=== PATIENT | female | born 1945 | race Two or more races ===

== ENCOUNTER 2023-09-25 17:44 | Inpatient (IN) | payer BC, SELFPAY ==
[2023-09-25] VITALS (8 sets, daily range): BP systolic 131–182; BP diastolic 86–131; BMI 29.8
[2023-09-25 12:41] LABS: ALT (SGPT) 64 U/L (0-35); AST (SGOT) 59 U/L (14-36); Alkaline Phosphatase 181 U/L (38-126); Blood Urea Nitrogen 40 mg/dl (7-17); Calcium 8.6 mg/dl (8.4-10.2); Carbon Dioxide 31 mmol/L (22-30); Chloride 94 mmol/L (98-107); Glucose 131 mg/dl (70-99); Potassium 3.3 mmol/L (3.5-5.1); Sodium 132 mmol/L (135-145); Total Protein 6.7 g/dl (6.3-8.2); eGFR 33.01
--- NOTE | 2023-09-25 15:17 | ED.GENMED ---
History of Present Illness
General
Chief Complaint: Skin Problem
Source: patient and family
Exam Limitations: none
Time Seen by Provider: 09/25/23 13:12
Nursing documentation reviewed up to this point in time: agreed with
Travel History
Have you had any contact with someone who has COVID-19?: No
Do you have any symptoms of coronavirus? Fever > 100 degrees, chills, cough, shortness of breath, sore throat, loss of taste or smell, muscle aches, or headache?: No
History of Present Illness
History of Present Illness:
77-year-old female with Werner history of Guillain-Guillen�, memory loss, CHF presenting to the emergency department today with concerns of swelling discomfort mainly to the left foot has had bilateral leg swelling but over the past few days noticed
increased redness swelling and blistering to the left foot. Denies specific fevers systemic symptoms nausea vomiting.
Past History
Past History
ED Past Medical History: CHF, Renal failure, Hypothyroidism and Other (Guillain-Guillen�)
ED Past Surgical History:
Social History
Tobacco: Non-smoker
Living: with family
Employment: Retired
Review of Systems
Review of Systems
Allergies reviewed?: Yes
All Other Systems: ROS reviewed and negative except as documented in HPI and ROS
Phy Exam
Physical Exam
Physical Exam:
GENERAL: Alert , in no apparent distress
EYE: pupils equal and reactive
NECK: Supple, no significant adenopathy.
ENT: o/p clr, mmm.
CARDIAC: Regular rate and rhythm .
LUNGS: Clear breath sounds bilaterally, no acute respiratory distress, no wheezes/rales/rhonchi
ABDOMEN: Soft, without focal tenderness, no r/g, no cvat
NEUROLOGICAL: Alert and oriented, no focal neuro deficits
SKIN: Skin breakdown break in skin to the top of the left foot with surrounding redness and swelling tenderness palpation +1 pitting edema to the lower extremities bilaterally distal to the knees warm and dry, skin intact.
MUSCULOSKELETAL: No edema, well perfused.
PSYCH: Normal and appropriate interaction.
Course
Orders/Labs/Results
Orders:
Orders
09/25/23 12:20
Comprehensive Metabolic Panel Urgent
09/25/23 13:55
CR Foot - Left Min 3 Views Urgent
Comment:
Reason For Exam: left foot swelling pain
Venous Doppler Lwr Ext Left [US Periph Venous LOWER Ext LT] Urgent
Comment:
Reason For Exam: left ;eg swelling
09/25/23 15:48
BNP [NT-proBNP] Urgent
Complete Blood Count/With Diff Urgent
Lactic Acid Urgent
09/25/23 15:52
CeFAZolin 2 GRAM [Ancef] 2 grams in 10 ml IV NOW
09/25/23 16:21
Furosemide [Lasix] 40 mg IV NOW STA
09/25/23 16:50
CR Chest - 2 Views Urgent
Comment:
Reason For Exam: lower ext edema; rales on lung exam
09/25/23 16:51
Admit/Transfer Patient As Directed
Co-Sign Provider:
Level of Care: Inpatient admission
Assign to:: Telemetry
Physician / Group: Cruz
Diagnosis: CHF, Left Foot Wound
Reason for Telemetry: Acute Heart Failure
Date to Stop Telemetry: 09/28/23
Time to Stop Telemetry: 11:00
Reason for Hospitalization: IV diuretics
Expected length of stay greater than two midnights?: Yes
ELOS- Estimated Length of Stay in days: 3
I certify the patient meets the requirements for IP care: Yes
09/25/23 16:58
Code Status As Directed
Resuscitation Status: Full Code
09/25/23 17:08
ECG [Electrocardiogram (*1)] Stat
Reason for Study: Tachycardia
Oxycodone [Roxicodone] 5 mg PO NOW STA
09/25/23 17:18
Potassium Chloride [KCl] 40 meq PO NOW STA
09/25/23 20:46
Acetaminophen [Tylenol] 650 mg PO Q4HPRN PRN
Cephalexin Monohydrate [Keflex] 500 mg PO BID
09/25/23 20:46
CARDIOLOGY CONSULT Routine
Consulting Provider: Laurie Mascorro
Was physician already notified: Yes
HF DIETARY CONSULT Routine
HF EDUCATOR CONSULT Routine
Comment:
WOUND/OSTOMY CONSULT Routine
Reason for Consult: left foot wound
Activity As Directed
Activity Level: Out of Bed-Early Mobility
Intake/ Output As Directed
Frequency: Per unit guidelines
Patient Education As Directed
Type: CHF folder
Comment: give on admission. Document in Interdisciplinary Education record
Sleep Apnea Assessment by RN As Directed
Comment:
Physician Instructions:
Vital Signs As Directed
Frequency: Other
Additional Instructions:: Q12 or per unit guidelines if more frequent.
Weight As Directed
Frequency: Daily
Type of Scale: Standing Scale
Comment: Daily morning weight. If unable to stand, use balanced bed scale.
Weight As Directed
Frequency: Once
Type of Scale: Standing Scale
Comment: Upon Admission. If unable to stand, use balanced bed scale.
Pulse Ox/cont/shift [RESP] Routine
Quantity: 1
Special Instructions: Daily pulse oximetry at rest. If greater than 92% at rest also obtain pulse oximetry
while ambulating as tolerated.
Ot Eval And Treat Routine
Pt Eval And Treat Routine
Activity Level: Out of Bed-Early Mobility
DX Deep Vein Thrombosis Video Routine
09/25/23 22:00
Melatonin 5 mg PO HS
Quetiapine Fumarate [Seroquel] 50 mg PO HS
09/26/23 00:00
Heparin 5,000 units SC Q8
09/26/23 05:34
Basic Metabolic Panel IN AM
Cardiovascular Evaluation IN AM
Complete Blood Count/No Diff IN AM
ESR [Erythrocyte Sed Rate] IN AM
09/26/23 Breakfast
Sodium, 2 Gram
At Your Request: Limited, Professor Computer Science Required
Fluid Restriction: 1440 mL/day (48 oz)
09/26/23 07:00
Levothyroxine [Synthroid] 100 mcg PO DAILY AT 0700
09/26/23 08:00
Furosemide [Lasix] 40 mg IV DAILY
Prednisone [Deltasone] 7.5 mg PO DAILY
09/26/23 12:20
CRP [C-Reactive Protein] IN AM
Complement C3 IN AM
Complement C4 IN AM
TSH Reflex To Free T4 IN AM
09/27/23 06:00
Basic Metabolic Panel IN AM
09/28/23 06:00
Basic Metabolic Panel IN AM
09/28/23 11:00
DC Protocol for Telemetry ONCE
Abnormal Lab Results
09/25/23 09/25/23
12:20 15:48
Hgb 16.9 H g/dL
(12.0-16.0)
Hct 50.2 H %
(37.0-47.0)
MCH 31.7 H pg
(27.0-31.0)
Plt Count 94 L 10^3/uL
(130-400)
MPV 10.8 H fL
(7.4-10.4)
Absolute Lymphs (auto) 0.4 L 10^3/uL
(1.2-3.4)
Neutrophils % 87.9 H %
(42.2-75.2)
Lymphocytes % 7.2 L %
(20.5-51.1)
Sodium 132 L mmol/L
(135-145)
Potassium 3.3 L mmol/L
(3.5-5.1)
Chloride 94 L mmol/L
(98-107)
Carbon Dioxide 31 H mmol/L
(22-30)
BUN 40 H mg/dl
(7-17)
Creatinine 1.6 H mg/dL
(0.6-1.0)
Glucose 131 H mg/dl
(70-99)
Lactic Acid 2.2 H mmol/L
(0.7-2.0)
AST 59 H U/L
(14-36)
ALT 64 H U/L
(0-35)
Alkaline Phosphatase 181 H U/L
(38-126)
C-Reactive Protein 28.30 H mg/L
(0.0-10.00)
TSH (Reflex) 7.80 H uIU/ml
(0.47-4.68)
09/25/23 15:48
09/25/23 12:20
Vital Signs
Initial and Last Documented VS:
Initial Vital Signs
Temp Pulse Resp BP Pulse Ox
97.8 F 59 16 146/101 95
09/25/23 12:11 09/25/23 12:11 09/25/23 12:11 09/25/23 12:11 09/25/23 12:11
Last Documented Vital Signs
Temp Pulse Resp BP Pulse Ox
98.9 F 115 16 165/105 94
09/26/23 07:24 09/26/23 08:42 09/26/23 07:24 09/26/23 08:42 09/26/23 07:24
MDM/Problems Addressed
MDM/Problems Addressed:
77-year-old female presenting to the emergency department today with concerns of a left-sided foot wound over the past few days also has had ongoing swelling to the bilateral lower extremities over the past few months. Has not been taking her
Lasix. Denies specific fevers nausea vomiting. According family she is also had increased shortness of breath. Likely in some degree of heart failure was given dose of Lasix lactic acid elevated to 2.2 with concerns of infection to the left lower
extremity with red discoloration and pain to the left foot was started on IV antibiotics will be admitted for further treatment and monitoring.
*Critical Care Note
Total Time (30-74mins, 75-104mins- exclusive of procedures): Not Applicable
ED Attending Note
-
Portions of this chart may have been created with voice recognition software.� Occasional wrong word or��sound alike� substitutions may have occurred due to the inherent limitations of voice recognition software.
Discharge Plan
Departure
Patient Disposition: Admit
Date of Disposition: 09/25/23
Time of Disposition: 16:23
Admit to: Med/Surg
Admit to doctor: Ziyad
Presentation/result/management discussed w/ accepting MD/DO: Hospitalist
Patient with high blood pressure during this ER visit?: No
Condition: Good
Covid-19: Not Applicable
Discharge Problem:
CHF exacerbation, Cellulitis of foot
Interventions
Interventions:
*Risk Screen - Suicide Last Done: 09/25/23 14:04
*General Assessment Last Done: 09/25/23 14:04
*Neglect/Abuse Screening Last Done: 09/25/23 14:05
ED- Fall Risk Assessment Last Done: 09/25/23 16:58
*ED COVID-19 Vaccine History Last Done: 09/25/23 12:11
*Nursing Disposition Last Done: 09/25/23 20:55
ED-Skin Assessment Last Done: 09/25/23 14:05
Discharge Date and Time
Discharge Date/Time: 09/25/23 20:56
[2023-09-25 16:04] LABS: % Basophils 0.3 % (0-2); % Eosinophils 0.8 % (0-6); % Immature Granulocytes 0.5 % (0-0.5); % Lymphocytes 7.2 % (20.5-51.1); % Monocytes 3.3 % (1.7-9.3); % Neutrophils 87.9 % (42.2-75.2); Absolute Eosinophils 0.1 10^3/uL (0-0.7); Absolute Lymphocytes 0.4 10^3/uL (1.2-3.4); Absolute Monocytes 0.2 10^3/uL (0.1-0.6); Absolute Neutrophils 5.3 10^3/uL (1.4-6.5); Hematocrit 50.2 % (37.0-47.0); Hemoglobin 16.9 g/dL (12.0-16.0); Mean Corp Hgb Conc. 33.7 g/dL (33.0-37.0); Mean Corpuscular Hgb 31.7 pg (27.0-31.0); Mean Corpuscular Volume 94.2 fL (81.0-99.0); Nucleated Red Blood Cells % 0 %; Red Blood Cell Count 5.33 10^6/uL (4.20-5.40)
[2023-09-25 16:07] LABS: Lactic Acid 2.2 mmol/L (0.7-2.0)
[2023-09-25 16:19] LABS: NT-proBNP 16100 pg/ml
[2023-09-25] MEDS: LASIX 40 MG IV (16:30)
[2023-09-25] MEDS: ANCEF 10 IV (16:30)
[2023-09-25 16:50] LABS: Mean Platelet Volume 10.8 fL (7.4-10.4); Platelet Count 94 10^3/uL (130-400)
--- NOTE | 2023-09-25 17:10 | HPS.HSE ---
Addendum entered and electronically signed by Behzad Cruz MD 09/25/23 17:36:
I saw and examined the patient.
The SR. MANAGER MARKETING or PA's note was reviewed and I agree with the note.
Comment:
Patient 77 years old female history of ANCA positive vasculitis, dementia, hypothyroidism, CKD, hypothyroidism, presented to the hospital with increased lower extremity edema and left foot ulcer associated with erythema and tenderness. Patient had
a blister in her left foot which popped a few days ago and has increased erythema and pain since. Patient also has been having increased lower extremity edema. Denies chest pain. She does not relate shortness of breath but she appears to have
conversational dyspnea[place] [address]. Chest x-ray not done yet. He was referred to hospitalist for further evaluation.
Physical exam:
General: Acutely ill
HEENT: Normocephalic, Atraumatic and Moist Mucous Membranes
Respiratory: Bilateral coarse crackles; Negative Wheezes or Rhonchi
Cardiac: Regular Rhythm and S1/S2
GI: Soft, Nontender and Nondistended
Musculoskeletal: Bilateral edema, erythema and tenderness at left foot dorsal aspect.
Neuro: Awake, Alert and Disoriented
Psych: Calm
A/P:
Acute on chronic diastolic congestive heart failure, left lower extremity cellulitis, recent vasculitis--> continue IV diuretics, replete potassium, follow-up renal function and electrolytes, chest x-ray, obtain echocardiogram, continue antibiotics,
recheck inflammatory markers in a.m. (ESR, CRP, some complements), cardiology consult. Will give further recommendations based on clinical course.
Original Note:
Family Physician
-
Family Physician: Girma Fletcher
Chief Complaint
-
Lower ext swelling
History of Present Illness
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 Patient is unable to provide any additional history due to language
barrier therefore, history was taken with patient's son at the bedside. Patient has some chronic lower extremity which is got progressively worse over the last week. She developed a blister on her left foot which popped 3 days ago. Patient
complaining planing of increased pain in the left foot prompted him to bring her to the emergency department for evaluation. Son has not noted patient to appear more short of breath, and there have been no complaints of increased shortness of
breath.
Medical History
Past Medical History
Past Medical History: Reports Other
Additional Past Medical History:
CKD Stage III
ANCA positive vasculitis
Hypothyroidism
Dementia
Insomnia
Past Surgical History: Reports None
Social History
Tobacco: Non-smoker
Alcohol: None
Living: With Family
Family History
Family History: Not pertinent
Allergies / Home Medications
Allergies reflects when Allergies were last updated in [facility].
Home Medications with original date entered in [facility]
Allergy/Medication List:
Allergies
Allergy/AdvReac Type Severity Reaction Status Date / Time
No Known Allergies Allergy Verified 09/25/23 12:13
Home Medications
acetaminophen 650 mg tablet,extended release 1,300 mg PO [id number] PRN mild pain 09/25/23
levothyroxine 100 mcg tablet 100 mcg PO DAILY AT 0700 09/25/23
melatonin 5 mg tablet 5 mg PO HS 09/25/23
prednisone 5 mg tablet 7.5 mg PO DAILY 09/25/23
quetiapine 50 mg tablet (Seroquel) 50 mg PO HS 09/25/23
Review of Systems
-
Unable to obtain full review of systems at this time due to: Language Barrier
Physical Exam
Vital Signs
Vital Signs
Temp Pulse Resp BP Pulse Ox
97.8 F 116 16 154/131 92
09/25/23 12:11 09/25/23 16:30 09/25/23 12:11 09/25/23 16:31 09/25/23 16:31
Physical Exam
General: Comfortable and Conversant
HEENT: Anicteric and Moist mucous membranes
Respiratory: Rales (Bilaterally) and Non Labored Respirations
Cardiac: S1/S2, Regular Rhythm and Tachycardia
GI: Soft and Non Tender
Rectal: Deferred by Provider
Musculoskeletal: No Clubbing, No Cyanosis and Other (+4 pitting edema bilateral lower extremities)
Skin: Warm, Dry and Other (Mild erythema left foot; Blister site wrapped in Faiza)
Neuro: Awake, Alert and Nonfocal/grossly intact
Laboratory Results
-
09/25/23 15:48
09/25/23 12:20
Laboratory Results
Lactic Acid 2.2 mmol/L (0.7-2.0) H 09/25/23 15:48
Total Bilirubin 1.0 mg/dl (0.2-1.3) 09/25/23 12:20
AST 59 U/L (14-36) H 09/25/23 12:20
ALT 64 U/L (0-35) H 09/25/23 12:20
Alkaline Phosphatase 181 U/L (38-126) H 09/25/23 12:20
Data Reviewed
-
Lab Data: Labs Reviewed by me
Impression/Plan
-
Acute Heart Failure, likely preserved EF
-Consult Cardiology
-Check Echo
-Check CXR
-Check ECG
-Continue Lasix
-Monitor Is&Os and Daily Weights
Left Foot Cellulitis
-Continue Keflex
-Consult Wound Care
CKD Stage III
-Monitor creatinine closely while on diuretics
ANCA Positive Vasculitis
-Continue prednisone
Dementia, unknown
Insomnia
-Continue melatonin and Seroquel
Hypothyroidism
-Continue levothyroxine
DVT proph: SC Heparin
Code Status: Full Code
[2023-09-25] MEDS: ROXICODONE 5 MG PO (17:51)
[2023-09-25] MEDS: KCL 40 MEQ PO (17:53)
--- NOTE | 2023-09-25 19:23 | PTCARENOTE ---
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
[2023-09-25] MEDS: KEFLEX 500 MG PO (21:23)
[2023-09-25] MEDS: MELATONIN 5 MG PO (21:25)
[2023-09-25] MEDS: SEROQUEL 50 MG PO (21:27)
[2023-09-26] VITALS (8 sets, daily range): BP systolic 101–153; BP diastolic 64–103; PULSE 115; O2SAT 93; BMI 29.9
[2023-09-26] MEDS: HEPARIN 5000 UNITS SC ×4 (00:07→23:00)
[2023-09-26] MEDS: ROXICODONE 5 MG PO (01:18)
[2023-09-26 06:09] LABS: Hematocrit 47.1 % (37.0-47.0); Hemoglobin 16.2 g/dL (12.0-16.0); Mean Corp Hgb Conc. 34.4 g/dL (33.0-37.0); Mean Corpuscular Hgb 31.6 pg (27.0-31.0); Mean Platelet Volume 12.1 fL (7.4-10.4); Platelet Count 77 10^3/uL (130-400); Red Blood Cell Count 5.12 10^6/uL (4.20-5.40); Red Cell Dist. Width 13.8 % (11.5-14.5); White Blood Cell Count 4.8 10^3/uL (4.8-10.8)
[2023-09-26] MEDS: SYNTHROID 100 MCG PO (06:13)
[2023-09-26 06:30] LABS: Blood Urea Nitrogen 40 mg/dl (7-17); Calcium 8.9 mg/dl (8.4-10.2); Carbon Dioxide 27 mmol/L (22-30); Chloride 99 mmol/L (98-107); Estimated Creatinine Clearance 26 ml/min; Glucose 110 mg/dl (70-99); HDL Cholesterol 106 mg/dl; LDL Cholesterol, Calculated 40 mg/dl; Potassium 3.6 mmol/L (3.5-5.1); Sodium 134 mmol/L (135-145); Total Cholesterol 173 mg/dl (50-199); Triglyceride 136 mg/dl (10-149); Very Low Density Lipoprotein 27 mg/dl (0-30); eGFR 33.01
[2023-09-26 07:15] LABS: Erythrocyte Sed Rate 8 mm/hour (0-20)
--- NOTE | 2023-09-26 08:12 | W.PN.HOSP.TC ---
Today's Communication/Plan
-
Continue IV Lasix. Echocardiogram.
Assessment / Plan
Assessment / Plan
Physical exam:
General: Acutely ill
HEENT: Normocephalic, Atraumatic and Moist Mucous Membranes
Respiratory: Bilateral coarse crackles; Negative Wheezes or Rhonchi
Cardiac: Regular Rhythm and S1/S2, systolic murmur
GI: Soft, Nontender and Nondistended
Musculoskeletal: Bilateral edema, erythema and tenderness at left foot dorsal aspect.
Neuro: Awake, Alert and Disoriented, cognitive deficits.
Psych: Calm
A/P:
Acute systolic congestive heart Failure:
IV diuretics, Lasix 40 mg IV daily
Monitor strict I/O
Monitor daily weight
Monitor renal function and electrolytes
Reviewed latest echocardiogram on our system
Continue guideline-directed medical therapy for heart failure (GDMT)
Follow up clinical response
Given abnormalities of echocardiogram might require further cardiac workup--> cardiology consult pending
discussed with son over the phone
Updated echocardiogram:
Normal left ventricular chamber size. Mild concentric left ventricular
�hypertrophy. Severely reduced left ventricular systolic function.� Global
�hypokinesis. LV ejection fraction is 20-25% by Lorenzo's method of discs. Stage
�I diastolic dysfunction suggestive of abnormal relaxation.
�Mildly enlarged right ventricular size. Reduced right ventricular systolic
�function.
�Moderate to severe mitral regurgitation.
�Severe tricuspid regurgitation. Estimated pulmonary artery pressure of 60 mmHg.
�Assuming a right atrial pressure of 8 mmHg.
�
�Compared to prior study dated 10/18/22 which was directly reviewed, significant
�changes have occurred:
�-Left ventricular function previously normal, now severely decrease
�-Right ventricular previously normal, now mildly dilated with decreased
�function
�-Mitral regurgitation previously trace, now moderate to severe
�-Tricuspid regurgitation previously mild, now severe
�-Estimated pulmonary artery pressure previously 35mmHg, now 60 mmHg
Left Foot Cellulitis
-Continue Keflex, oral
-Consult Wound Care--> appreciated input and continue local care
CKD Stage III
-Monitor creatinine closely while on diuretics
-Creatinine 1.6 today which is the same as yesterday
ANCA Positive Vasculitis
-Continue prednisone
-Repeated ESR, CRP C3 and C4--> no evidence of flare of vasculitis at the moment given ESR normal, CRP only minimally elevated, and C3-C4 pending.
Dementia, probably Alzheimer's
Insomnia
-Continue melatonin and Seroquel
Hypothyroidism
-Continue levothyroxine
DVT proph: SC Heparin
Code Status: Full Code
Total time spent on today's encounter was 52 minutes which included time spent in counseling the patient/family regarding diagnosis and treatment plan as listed above, goals of care, and symptom management. Case was discussed with nursing staff,
specialists, and care coordinators/case management. All labs and imaging personally reviewed by me. Remainder the time spent in detailed review of previous records, lab data, imaging, and other medical provider documentation.
Anticipated Discharge: > 48 hours
Subjective/Interval History
-
Date of Service: September 26, 2023
Objective Data
-
Labs:
Laboratory Results
09/26/23
05:34
WBC 4.8
Hgb 16.2 H
Hct 47.1 H
Plt Count 77 L
Sodium 134 L
Potassium 3.6
Chloride 99
Carbon Dioxide 27
BUN 40 H
Creatinine 1.6 H
Glucose 110 H
Calcium 8.9
Vital Signs:
Vital Signs
Temp Pulse Resp BP Pulse Ox
98.9 F 115 16 147/101 94
09/26/23 07:24 09/26/23 07:24 09/26/23 07:24 09/26/23 03:52 09/26/23 07:24
[2023-09-26] MEDS: KEFLEX 500 MG PO ×2 (08:39→20:29)
[2023-09-26] MEDS: DELTASONE 7.5 MG PO (08:39)
[2023-09-26] MEDS: LASIX 40 MG IV (08:42)
[2023-09-26 09:02] LABS: Free T4 1.47 ng/dl (0.78-2.19)
[2023-09-26 09:41] LABS: Complement C3 98 mg/dl (88-165)
--- NOTE | 2023-09-26 11:12 | WOUNDNOTE ---
4TH TOE DORSAL
--- NOTE | 2023-09-26 11:14 | WOUNDNOTE ---
R MEDIAL FOOT CALLUS
--- NOTE | 2023-09-26 11:15 | WOUNDNOTE ---
WON RN note: Patient admitted with CHF exacerbation, cellulitis of L foot.
See H&P for complete history.
PMH: memory loss, [place], neuropathy in feet, CHF,LBP, anxiety and ambulatory dysfunction.
Wound Location and type/assessment: Patient admitted with: Cellulitis and L large dorsal foot blister. R 4th toe with moist scab on dorsal aspect, suspect from shoes vs trauma, both wounds due to neuropathy/edema. Has a raised Callus on R medial
foot. + palpable pedal pulses both feet. Dr. Cruz assessed wounds and assisted with lifting legs, patient unable to do on own. Patient can turn self without difficulty. Sacrum and heels are intact.
Appetite: Fair.
Pressure redistribution devices in place: On [employer]umax. Nurse Barbara reports patient can ambulate on own.
Plan: Local wound care done to L foot with adaptic, abd pad and pilar, lino wrap knee high. R 4th toe applied silicone foam. Dr. Cruz approved of the above. Asked nursing information systems coordinator assisting to obtain pillow to use btw legs when turned.
Updated nurse, care plan and will follow as needed.
Note to case management of equipment requested for discharge: VN for wound care.
Recommend follow up at wound care center upon discharge.
--- NOTE | 2023-09-26 13:32 | CON.CAR ---
Addendum entered and electronically signed by Wagner Calderon MD 09/26/23 16:36:
I saw and examined the patient.
The University Tutor's note was reviewed and I agree with the note.
Comment: 77-year-old woman past medical history of newly diagnosed ANCA vasculitis who presents in decompensated heart failure
Transthoracic echocardiogram here showed severely reduced left ventricular systolic function which is a new finding
Plan for IV diuresis, monitor daily weights and renal function
Will add low-dose beta-oneal and ARB given new cardiomyopathy and asked case management to carter Entresto
Would consider eventual ischemic evaluation depending on patient and family's goals of care
Original Note:
Consultation
Consultation Request
Date/Time Consultation Requested: 09/25/23 at 2046
Date/Time Consultation Performed: 09/26/23 at 1330
Requesting Provider: Dr. Cruz
Performing Provider: Dr. Calderon
Reason for Consultation: Acute HF
Medical History
-
History of Present Illness:
Patient came to [facility] yesterday with LE edema and left foot pain and wound, cardiology has been consulted for acute HF. Patient lives at home with her family and she was not taking Lasix according to her med rec. Patient is alone in the room now and
is awake and alert, but not answering questions. Patient had a series of admissions to from 10/17/22 until 12/01/22 where she was initially diagnosed and treated for acute HF, but developed REX with attempted diuresis. Then she was diagnosed with
demyelinating radiculopathy and received gammaglobulin, but no symptomatic improvement. She was finally diagnosed with ANCA vasculitis after she had mildly positive peroxidase antibodies. She was started on pulse dose steroids and began to
symptomatically improve for the first time both in weakness and confusion. She then started Rituxan in the hospital 11/27/22. She remains on prednisone 7.5 mg daily now. She has never been seen in the cardiology office, her visits have been no-show
or rescheduled. Last year when cardiology saw her throughout her admissions she had an echo that showed preserved EF, but echo today shows that EF is now reduced at 20-25% with moderate to severe MR, severe TR and mild to moderate AI. Will call
patient's son
PMH:
Recent series of admissions for acute HF, generalized weakness and eventually diagnosed with ANCA vasculitis 10/17/22 until 12/01/22
h/o ANCA vasculitis
CKD 3
Dementia
Hypothyroidism
h/o GBS and dysautonomia symptoms that resolved with ANCA vasculitis treatment
h/o diastolic dysfunction
Past Medical History
Past Medical History: Other (in HPI)
Past Surgical History: None
Social History
Tobacco: Non-Smoker
Alcohol: None
Drug: None
Personal:
Living: With Family
Family History
Family History: Reviewed & Not Pertinent (No FH of CAD)
Allergies / Home Medications
Allergy/AdvReac Type Severity Reaction Status Date / Time
No Known Allergies Allergy Verified 09/25/23 12:13
Medication Instructions Recorded Confirmed Type
acetaminophen 650 mg 1,300 mg PO [id number] PRN mild pain 09/25/23 09/25/23 History
tablet,extended release
levothyroxine 100 mcg tablet 100 mcg PO DAILY AT 0700 Thyroid 09/25/23 09/25/23 History
melatonin 5 mg tablet 5 mg PO HS Sleep 09/25/23 09/25/23 History
prednisone 5 mg tablet 7.5 mg PO DAILY vasculitis 09/25/23 09/25/23 History
quetiapine 50 mg tablet (Seroquel) 50 mg PO HS mental health 09/25/23 09/25/23 History
Review of Systems
-
History Source: Patient and Family
All other systems: Negative unless noted
Physical Exam
Vital Signs
Temp Pulse Resp BP Pulse Ox
98 F 111 18 140/89 96
09/26/23 13:01 09/26/23 13:01 09/26/23 13:01 09/26/23 13:01 09/26/23 13:01
GEN: NAD. Awake and alert
HEENT: EOMI, MMM
LUNGS: Clear anterolaterally with poor inspiratory effort
CV: Reg, S1/S2, 2/6 syst LSB
ABD: soft, BS+, NT, ND
EXT: +1 B/L LE edema. LLE GAURANG wrap in place. No clubbing, cyanosis or lesions B/L
NEURO: Gross non-focal
SKIN: Warm, dry and pink. No rash
Lab Results
09/26/23 05:34
09/26/23 05:34
Eip-Y-Exvnkwboloa Pept 79030 pg/ml 09/25/23 15:48
Impression / Plan
-
PCP: Dr. Yordy Ibarra
Cardiology: None prior to admission
Impression:
Acute HFrEF
LLE cellulitis
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
Moderate to severe MR by echo 09/26/23
Severe TR by echo 09/26/23
Recent series of admissions for acute HF, generalized weakness and eventually diagnosed with ANCA vasculitis 10/17/22 until 12/01/22
h/o ANCA vasculitis
CKD 3
Dementia
Hypothyroidism
h/o GBS and dysautonomia symptoms that resolved with ANCA vasculitis treatment
h/o diastolic dysfunction
Echo 10/18/22:�EF 60-65%, mild to mod aortic regurgitation, mild TR
Echo 09/26/23: preliminary report, EF 20-25%, moderate to severe MR, severe TR, mild to moderate aortic insufficiency
Plan:
-Patient came to [facility] yesterday with LE edema and left foot pain and wound, cardiology has been consulted for acute HF. Patient lives at home with her family and she was not taking Lasix according to her med rec. Patient is alone in the room now and
is awake and alert, but not answering questions. Patient had a series of admissions to from 10/17/22 until 12/01/22 where she was initially diagnosed and treated for acute HF, but developed REX with attempted diuresis. Then she was diagnosed with
demyelinating radiculopathy and received gammaglobulin, but no symptomatic improvement. She was finally diagnosed with ANCA vasculitis after she had mildly positive peroxidase antibodies. She was started on pulse dose steroids and began to
symptomatically improve for the first time both in weakness and confusion. She then started Rituxan in the hospital 11/27/22. She remains on prednisone 7.5 mg daily now. She has never been seen in the cardiology office, her visits have been no-show
or rescheduled. Last year when cardiology saw her throughout her admissions she had an echo that showed preserved EF, but echo today shows that EF is now reduced at 20-25% with moderate to severe MR, severe TR and mild to moderate AI. Will call
patient's son
-ECG reviewed by me shows sinus tachycardia with PVCs and lateral ST changes.
-Agree with Lasix 40 mg IV daily diuresis. Patient was not taking a diuretic prior to admission.
-Follow Cre. Patient developed REX last admission, but this was prior to her ANCA diagnosis. 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
-No WMA on echo. No ECG changes. Patient is not a candidate for cath given dementia.
-Update 1546: Talked with patient's son, Flora, on the phone for 10:44 min. Reviewed the series of admissions from last year. 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
but the other eye was unaffected. Patient went to stay with her other son in [place] for the summer, fall and winter and only recently returned to living with the patient. While in [place] she was admitted for PNA, but that was months ago. Patient
now with increasing LE edema for weeks and then the left dorsal foot wound is really what prompted admission. Reviewed echo findings. No chest pain per son. Reviewed that reduced EF could be ischemic or nonischemic and due to previous infection,
autoimmune process or other. Reviewed the current plan for medical therapy. Will add Coreg 3.125 mg BID and losartan 25 mg daily. Pending insurance coverage could try to transition to Entresto.
--- NOTE | 2023-09-26 16:00 | CM ---
gloria pena, pt with limited Spanish.
Attempted outreach to son- busy signal and unable to leave message for IA
[2023-09-26] MEDS: COZAAR 25 MG PO (16:36)
[2023-09-26] MEDS: COREG 3.125 MG PO (20:29)
[2023-09-26] MEDS: TYLENOL 650 MG PO (20:37)
[2023-09-26 21:19] LABS: Glucose - Point of Care 116 mg/dl (70-99)
[2023-09-26] MEDS: SEROQUEL 50 MG PO (22:16)
[2023-09-26] MEDS: MELATONIN 5 MG PO (22:16)
[2023-09-27 03:54] VITALS: BP 130/91
[2023-09-27 06:00] VITALS: BMI 29.7
[2023-09-27] MEDS: SYNTHROID 100 MCG PO (06:14)
[2023-09-27 06:18] LABS: % Basophils 0.2 % (0-2); % Eosinophils 3.3 % (0-6); % Immature Granulocytes 0.5 % (0-0.5); % Lymphocytes 18.7 % (20.5-51.1); % Monocytes 4.7 % (1.7-9.3); % Neutrophils 72.6 % (42.2-75.2); Absolute Eosinophils 0.1 10^3/uL (0-0.7); Absolute Lymphocytes 0.8 10^3/uL (1.2-3.4); Absolute Monocytes 0.2 10^3/uL (0.1-0.6); Absolute Neutrophils 3.1 10^3/uL (1.4-6.5); Hematocrit 42.8 % (37.0-47.0); Hemoglobin 14.4 g/dL (12.0-16.0); Mean Corp Hgb Conc. 33.6 g/dL (33.0-37.0); Mean Corpuscular Hgb 31.5 pg (27.0-31.0); Mean Corpuscular Volume 93.7 fL (81.0-99.0); Mean Platelet Volume 10.2 fL (7.4-10.4); Nucleated Red Blood Cells % 0 %; Platelet Count 72 10^3/uL (130-400); Red Blood Cell Count 4.57 10^6/uL (4.20-5.40); Red Cell Dist. Width 13.7 % (11.5-14.5); White Blood Cell Count 4.3 10^3/uL (4.8-10.8)
[2023-09-27 06:39] LABS: Blood Urea Nitrogen 43 mg/dl (7-17); Calcium 8.8 mg/dl (8.4-10.2); Carbon Dioxide 34 mmol/L (22-30); Chloride 96 mmol/L (98-107); Estimated Creatinine Clearance 27 ml/min; Glucose 100 mg/dl (70-99); Potassium 3.4 mmol/L (3.5-5.1); Sodium 135 mmol/L (135-145); eGFR 35.67
[2023-09-27 07:00] VITALS: BP 153/110
[2023-09-27 07:57] VITALS: BMI 29.7
--- NOTE | 2023-09-27 08:03 | W.PN.HOSP.TC ---
Today's Communication/Plan
-
Continue IV Lasix.
Assessment / Plan
Assessment / Plan
Physical exam:
General: Acutely ill
HEENT: Normocephalic, Atraumatic and Moist Mucous Membranes
Respiratory: Bilateral coarse crackles; Negative Wheezes or Rhonchi
Cardiac: Regular Rhythm and S1/S2, systolic murmur
GI: Soft, Nontender and Nondistended
Musculoskeletal: Bilateral edema, erythema and tenderness at left foot dorsal aspect.
Neuro: Awake, Alert and Disoriented, cognitive deficits.
Psych: Calm
A/P:
Acute systolic congestive heart Failure:
IV diuretics, increased to Lasix IV 40 mg twice a day
Monitor strict I/O
Monitor daily weight
Monitor renal function and electrolytes
Reviewed latest echocardiogram on our system and shows EF 20 to 25% which is new from prior echocardiogram and moderate to severe MR.
Continue guideline-directed medical therapy for heart failure (GDMT)--> on Coreg 6.25 m twice a day, Cozaar, checking cost of Jardiance and Entresto.
Follow up clinical response
Given abnormalities of echocardiogram might require further cardiac workup--> cardiology consult appreciated and recommended outpatient ischemic workup.
discussed with son over the phone yesterday
Left Foot Cellulitis
-Continue Keflex, oral
-Consulted Wound Care--> appreciated input and continue local care
CKD Stage III
-Monitor creatinine closely while on diuretics
-Creatinine 1.5 today which is better than yesterday
ANCA Positive Vasculitis
-Continue prednisone
-Repeated ESR, CRP C3 and C4--> no evidence of flare of vasculitis at the moment given ESR normal, CRP only minimally elevated and less than previously, and C3-C4 normal.
Dementia, probably Alzheimer's
Insomnia
-Continue melatonin and Seroquel
Hypothyroidism
-Continue levothyroxine
DVT proph: SC Heparin
Code Status: Full Code
Total time spent on today's encounter was 52 minutes which included time spent in counseling the patient/family regarding diagnosis and treatment plan as listed above, goals of care, and symptom management. Case was discussed with nursing staff,
specialists, and care coordinators/case management. All labs and imaging personally reviewed by me. Remainder the time spent in detailed review of previous records, lab data, imaging, and other medical provider documentation.
Anticipated Discharge: > 48 hours
Subjective/Interval History
-
Date of Service: September 27, 2023
Not much information from patient, peripheral edema still significant although no conversational dyspnea. Afebrile
Objective Data
-
Labs:
Laboratory Results
09/27/23
05:39
WBC 4.3 L
Hgb 14.4
Hct 42.8
Plt Count 72 L
Sodium 135
Potassium 3.4 L
Chloride 96 L
Carbon Dioxide 34 H
BUN 43 H
Creatinine 1.5 H
Glucose 100 H
Calcium 8.8
Vital Signs:
Vital Signs
Temp Pulse Resp BP Pulse Ox
97.8 F 112 20 153/110 93
09/27/23 07:00 09/27/23 07:00 09/27/23 07:00 09/27/23 07:00 09/27/23 07:00
I&O
09/26/23 09/27/23 09/28/23
06:59 06:59 06:59
Intake Total 480 / 480
Balance 480 / 480
[2023-09-27] MEDS: KEFLEX 500 MG PO ×2 (08:52→20:23)
[2023-09-27] MEDS: COZAAR 25 MG PO (08:53)
[2023-09-27] MEDS: DELTASONE 7.5 MG PO (08:53)
[2023-09-27] MEDS: LASIX 40 MG IV ×2 (08:54→15:53)
[2023-09-27] MEDS: COREG 3.125 MG PO ×2 (08:54→11:39)
[2023-09-27] MEDS: HEPARIN 5000 UNITS SC ×2 (08:55→15:34)
--- NOTE | 2023-09-27 09:30 | W.PN.CARDCBS ---
Today's Communication / Plan
-
New cardiomyopathy of unclear etiology with new moderate to severe MR. LVEF 20 to 25%.
Increase Coreg to 6.25 mg twice daily and increase Lasix to 40 mg IV twice daily. Okay to continue Cozaar for now. Will check on cost of Jardiance and Entresto.
She has underlying dementia. Will treat medically to start and then consider ischemic evaluation as outpatient.
Continue to follow creatinine closely as she has had acute kidney injury in the past.
She also will continue the prednisone for her history of vasculitis. CRP is elevated but improved from 2022
Impression / Plan
-
PCP: Dr. Yordy Ibarra
Cardiology: None prior to admission
Impression:
Acute HFrEF
LLE cellulitis
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
Moderate to severe MR by echo 09/26/23
Severe TR by echo 09/26/23
Recent series of admissions for acute HF, generalized weakness and eventually diagnosed with ANCA vasculitis 10/17/22 until 12/01/22
h/o ANCA vasculitis
CKD 3
Dementia
Hypothyroidism
h/o GBS and dysautonomia symptoms that resolved with ANCA vasculitis treatment
h/o diastolic dysfunction
Echo 10/18/22:�EF 60-65%, mild to mod aortic regurgitation, mild TR
Echo 09/26/23: EF 20-25%, moderate to severe MR, severe TR, mild to moderate aortic insufficiency
Plan:
-Would continue medical therapy for new cardiomyopathy with new moderate to severe MR. Increase Coreg to 6.25 mg p.o. twice daily continue losartan. She remains volume overloaded will increase Lasix to 40 mg IV twice daily. Will need to continue
to follow creatinine.
-Would consider switching to Entresto and Jardiance. Will ask case management to look into cost.
-Follow Cre. Patient developed REX last admission, but this was prior to her ANCA diagnosis. 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
-No WMA on echo. No ECG changes. Patient is not a candidate for cath given dementia.
-Cont prednisone and Keflex
-Had series of admissions from last year. 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 Patient went to stay with her other son in [place]
for the summer, fall and winter and only recently returned to living with the patient. While in [place] she was admitted for PNA, but that was months ago. Patient now with increasing LE edema for weeks and then the left dorsal foot wound is really
what prompted admission. Reviewed echo findings. No chest pain per son. Reviewed that reduced EF could be ischemic or nonischemic and due to previous infection, autoimmune process or other. Reviewed the current plan for medical therapy. Will add
Coreg 3.125 mg BID and losartan 25 mg daily. Pending insurance coverage could try to transition to Entresto.
Progress Note - Visitor Services Assistant
Subjective
Date of Service: September 27, 2023
Still with some shortness of breath. Heart rates remain elevated in sinus rhythm.
Objective
Labs:
09/27/23 05:39
09/27/23 05:39
Labs
Hgb 14.4 g/dL (12.0-16.0) 09/27/23 05:39
Hct 42.8 % (37.0-47.0) 09/27/23 05:39
Plt Count 72 10^3/uL (130-400) L 09/27/23 05:39
Sodium 135 mmol/L (135-145) 09/27/23 05:39
Potassium 3.4 mmol/L (3.5-5.1) L 09/27/23 05:39
BUN 43 mg/dl (7-17) H 09/27/23 05:39
Creatinine 1.5 mg/dL (0.6-1.0) H 09/27/23 05:39
Glucose 100 mg/dl (70-99) H 09/27/23 05:39
Vital Signs and I&O:
Vital Signs
Temp Pulse Resp BP Pulse Ox
97.8 F 112 20 153/110 93
09/27/23 07:00 09/27/23 08:53 09/27/23 07:00 09/27/23 08:53 09/27/23 07:00
Vital Signs
Temp Pulse Resp BP Pulse Ox
97.8 F 112 20 153/110 93
09/27/23 07:00 09/27/23 08:53 09/27/23 07:00 09/27/23 08:53 09/27/23 07:00
Intake & Output
09/25/23 09/26/23 09/27/23 09/28/23
06:59 06:59 06:59 06:59
Intake Total 480 / 480
Balance 480 / 480
Physical Exam
Physical Exam
GEN: No distress, awake, Ox3
HEENT: supple, anicteric, mmm
LUNGS: dec BS at bases
CV: Reg, S1/S2, 1/6 syst LSB, S3+
ABD: soft, BS+, NT/ND
EXT: ++ edema
NEURO: Gross non-focal
SKIN: No rash
[2023-09-27 11:15] VITALS: BP 108/72
[2023-09-27] MEDS: KCL 40 MEQ PO (11:34)
[2023-09-27 15:00] VITALS: BP 128/94
[2023-09-27] MEDS: TYLENOL 650 MG PO (15:34)
--- NOTE | 2023-09-27 16:45 | CM ---
CM following re: d/c planning
Chart reviewed
CM spoke with the patient's son via phone; IA completed
Pt has dx dementia and unable to answer questions asked
Pt resides at her son's 2SH home with 2STE
Pt reports independence at baseline
Pt has home care hx with [facility], has no SNF hx, & has a r/w & w/c for use as needed
Pt has confirmed prescription coverage and rx's are filled at [facility] on [address] [place]
Pt PCP Girma Fletcher
Per PT ceci. post d/c recommendation is home PT vs SNF
CM will continue to communicate disposition needs & assist with d/c as indicated
PLAN; CM following for needs
[2023-09-27 19:00] VITALS: BP 128/88
[2023-09-27] MEDS: COREG 6.25 MG PO (20:23)
[2023-09-27] MEDS: SEROQUEL 50 MG PO (21:41)
[2023-09-27] MEDS: MELATONIN 5 MG PO (21:41)
[2023-09-27 23:00] VITALS: BP 108/72
[2023-09-28] VITALS (7 sets, daily range): BP systolic 124–148; BP diastolic 71–100; PULSE 87; O2SAT 94; BMI 29.6
[2023-09-28] MEDS: SYNTHROID 100 MCG PO (05:45)
[2023-09-28] MEDS: TYLENOL 650 MG PO ×3 (05:45→20:19)
[2023-09-28 06:46] LABS: Blood Urea Nitrogen 40 mg/dl (7-17); Calcium 8.9 mg/dl (8.4-10.2); Carbon Dioxide 32 mmol/L (22-30); Chloride 100 mmol/L (98-107); Estimated Creatinine Clearance 27 ml/min; Glucose 116 mg/dl (70-99); Potassium 4.2 mmol/L (3.5-5.1); Sodium 135 mmol/L (135-145); eGFR 35.67
--- NOTE | 2023-09-28 07:39 | W.PN.HOSP.TC ---
Today's Communication/Plan
-
Continue IV Lasix.
Assessment / Plan
Assessment / Plan
Physical exam:
General: Acutely ill
HEENT: Normocephalic, Atraumatic and Moist Mucous Membranes
Respiratory: Bilateral coarse crackles; Negative Wheezes or Rhonchi
Cardiac: Regular Rhythm and S1/S2, systolic murmur
GI: Soft, Nontender and Nondistended
Musculoskeletal: Bilateral edema, erythema and tenderness at left foot dorsal aspect.
Neuro: Awake, Alert and Disoriented, cognitive deficits.
Psych: Calm
A/P:
Acute systolic congestive heart Failure:
IV diuretics, increased to Lasix IV 40 mg twice a day
Monitor strict I/O
Monitor daily weight
Monitor renal function and electrolytes
Reviewed latest echocardiogram on our system and shows EF 20 to 25% which is new from prior echocardiogram and moderate to severe MR.
Continue guideline-directed medical therapy for heart failure (GDMT)--> on Coreg 6.25 m twice a day, Cozaar, checking cost of Jardiance and Entresto.
Follow up clinical response
Given abnormalities of echocardiogram might require further cardiac workup--> cardiology consult appreciated and recommended outpatient ischemic workup.
discussed with son over the phone again today on
Left Foot Cellulitis
-Continue Keflex, oral
-Consulted Wound Care--> appreciated input and continue local care
CKD Stage III
-Monitor creatinine closely while on diuretics
-Creatinine 1.5 today which is stable
ANCA Positive Vasculitis
-Continue prednisone
-Repeated ESR, CRP C3 and C4--> no evidence of flare of vasculitis at the moment given ESR normal, CRP only minimally elevated and less than previously, and C3-C4 normal.
Dementia, probably Alzheimer's
Insomnia
-Continue melatonin and Seroquel
Hypothyroidism
-Continue levothyroxine
DVT proph: SC Heparin
Code Status: Full Code
Anticipated Discharge: 24 - 48 hours
Subjective/Interval History
-
Date of Service: September 28, 2023
Less shortness of breath, still edematous. Patient with pain from neuropathy at times.
Objective Data
-
Labs:
Laboratory Results
09/28/23
05:44
Sodium 135
Potassium 4.2
Chloride 100
Carbon Dioxide 32 H
BUN 40 H
Creatinine 1.5 H
Glucose 116 H
Calcium 8.9
Vital Signs:
Vital Signs
Temp Pulse Resp BP Pulse Ox
97.5 F 102 20 148/100 92
09/28/23 07:29 09/28/23 07:29 09/28/23 07:29 09/28/23 07:29 09/28/23 07:29
I&O
09/27/23 09/28/23 09/29/23
06:59 06:59 06:59
Intake Total 480 / 480 1140 / 1140
Balance 480 / 480 1140 / 1140
[2023-09-28] MEDS: KEFLEX 500 MG PO ×2 (07:47→20:20)
[2023-09-28] MEDS: COZAAR 25 MG PO (07:47)
[2023-09-28] MEDS: DELTASONE 7.5 MG PO (07:47)
[2023-09-28] MEDS: HEPARIN 5000 UNITS SC ×3 (07:47→16:08)
[2023-09-28] MEDS: COREG 6.25 MG PO ×2 (07:47→20:20)
[2023-09-28] MEDS: LASIX 40 MG IV ×2 (07:48→16:07)
[2023-09-28] MEDS: MELATONIN 5 MG PO (21:39)
[2023-09-28] MEDS: SEROQUEL 50 MG PO (21:39)
--- NOTE | 2023-09-28 23:38 | W.PN.CARDCBS ---
Today's Communication / Plan
-
Continue diuresis
Optimize goal-directed medical therapy for new cardiomyopathy
Impression / Plan
-
PCP: Dr. Yordy Ibarra
Cardiology: None prior to admission
Impression:
Acute HFrEF
LLE cellulitis
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
Moderate to severe MR by echo 09/26/23
Severe TR by echo 09/26/23
Recent series of admissions for acute HF, generalized weakness and eventually diagnosed with ANCA vasculitis 10/17/22 until 12/01/22
h/o ANCA vasculitis
CKD 3
Dementia
Hypothyroidism
h/o GBS and dysautonomia symptoms that resolved with ANCA vasculitis treatment
h/o diastolic dysfunction
Echo 10/18/22:�EF 60-65%, mild to mod aortic regurgitation, mild TR
Echo 09/26/23: EF 20-25%, moderate to severe MR, severe TR, mild to moderate aortic insufficiency
Plan:
New cardiomyopathy, unknown etiology with a EF 5% by echocardiogram 09/26/2023 with moderate to severe mitral regurgitation and severe tricuspid regurgitation as well as mild to moderate aortic insufficiency
-Records received patient's portal from [place] from March 19, 2023 including an echocardiogram which noted LV systolic function to be normal estimated 65% with no regional wall motion abnormalities and grade 1 diastolic dysfunction. She had
elevated left atrial filling pressures. Right ventricle was mildly enlarged with mildly reduced RV systolic function. She had mild mitral and tricuspid regurgitation. Estimated right ventricular systolic pressures were severely elevated at 60
mmHg assuming a right atrial pressure of 15 mmHg.
-Also reviewed a patient portal discharge summary from her admission in [place] March 18 - April 08, 2023 for sepsis and acute respiratory failure requiring intubation.Patient presented with shortness of breath requiring intubation with CT of
the chest noting pneumonia and diffuse interstitial lung disease. 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 She was extubated
March 22 and then needed to be reintubated March 26. She was eventually reextubated March 28 and required 2 L nasal cannula at time of discharge. She was also treated for heart failure with preserved ejection fraction. She was discharged on 40
mg of Lasix every other day. She did have elevated troponins which they felt were the demand ischemia.
-Cardiomyopathy etiology unclear, ischemic? Possible rituximab induced.
-Discussed with family options for further evaluation of new cardiomyopathy including ischemic evaluation however they have historically been more conservative given her advanced cognitive impairment/dementia. They plan on having a family meeting
tonight.
-Continue Coreg to 6.25 mg p.o. twice daily; continue losartan.
-She remains volume overloaded; continue Lasix to 40 mg IV twice daily.
-Would consider switching to Entresto and Jardiance. Will ask case management to look into cost.
-Follow Cre. Patient developed REX last admission, but this was prior to her ANCA diagnosis. 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
Progress Note - Rehabilitation Director
Subjective
Date of Service: September 28, 2023
Seen and examined. Patient sitting at bed to chair with her and son at bedside. History unreliable due to dementia as well as language barriers. Discussed cardiac testing findings and options with son
Objective
Labs:
09/27/23 05:39
09/28/23 05:44
Labs
Hgb 14.4 g/dL (12.0-16.0) 09/27/23 05:39
Hct 42.8 % (37.0-47.0) 09/27/23 05:39
Plt Count 72 10^3/uL (130-400) L 09/27/23 05:39
Sodium 135 mmol/L (135-145) 09/28/23 05:44
Potassium 4.2 mmol/L (3.5-5.1) 09/28/23 05:44
BUN 40 mg/dl (7-17) H 09/28/23 05:44
Creatinine 1.5 mg/dL (0.6-1.0) H 09/28/23 05:44
Glucose 116 mg/dl (70-99) H 09/28/23 05:44
Vital Signs and I&O:
Vital Signs
Temp Pulse Resp BP Pulse Ox
97.6 F 110 20 136/87 93
09/28/23 19:34 09/28/23 20:20 09/28/23 19:34 09/28/23 20:20 09/28/23 19:34
Vital Signs
Temp Pulse Resp BP Pulse Ox
97.6 F 110 20 136/87 93
09/28/23 19:34 09/28/23 20:20 09/28/23 19:34 09/28/23 20:20 09/28/23 19:34
Intake & Output
09/26/23 09/27/23 09/28/23 09/29/23
06:59 06:59 06:59 06:59
Intake Total 480 / 480 1140 / 1140 120 / 120
Balance 480 / 480 1140 / 1140 120 / 120
Physical Exam
Physical Exam
GEN: Awake and alert. Sitting out of bed to chair
HEENT: mm
LUNGS: dec BS at bases
CV: Reg, S1/S2, 2/6 syst LSB
ABD: soft, BS+, NT/ND
EXT: ++ edema
[2023-09-29] MEDS: HEPARIN 5000 UNITS SC ×4 (00:19→23:00)
[2023-09-29 03:32] VITALS: BP 141/99
[2023-09-29 06:00] VITALS: BMI 29.0
[2023-09-29] MEDS: TYLENOL 650 MG PO ×3 (06:02→18:24)
[2023-09-29 06:43] LABS: Blood Urea Nitrogen 48 mg/dl (7-17); Calcium 9.1 mg/dl (8.4-10.2); Carbon Dioxide 35 mmol/L (22-30); Chloride 97 mmol/L (98-107); Estimated Creatinine Clearance 27 ml/min; Glucose 113 mg/dl (70-99); Potassium 3.6 mmol/L (3.5-5.1); Sodium 137 mmol/L (135-145); eGFR 35.67
--- NOTE | 2023-09-29 08:12 | W.PN.HOSP.TC ---
Addendum entered and electronically signed by Behzad Cruz MD 09/29/23 15:01:
Thrombocytopenia
Hyponatremia
Original Note:
Today's Communication/Plan
-
Continue IV Lasix.
Assessment / Plan
Assessment / Plan
Physical exam:
General: Acutely ill
HEENT: Normocephalic, Atraumatic and Moist Mucous Membranes
Respiratory: Bilateral coarse crackles; Negative Wheezes or Rhonchi
Cardiac: Regular Rhythm and S1/S2, systolic murmur
GI: Soft, Nontender and Nondistended
Musculoskeletal: Bilateral edema, erythema and tenderness at left foot dorsal aspect.
Neuro: Awake, Alert and Disoriented, cognitive deficits.
Psych: Calm
A/P:
Acute systolic congestive heart Failure:
Suspicion for etiology of heart failure related to use of Rituxan (not very common, but case reports reviewed related to cardiotoxicity).
IV diuretics, increased to Lasix IV 40 mg twice a day
Monitor strict I/O
Monitor daily weight
Monitor renal function and electrolytes
Reviewed latest echocardiogram on our system and shows EF 20 to 25% which is new from prior echocardiogram and moderate to severe MR.
Continue guideline-directed medical therapy for heart failure (GDMT)--> on Coreg 6.25 m twice a day, Cozaar, checking cost of Jardiance and Entresto.
Follow up clinical response
Given abnormalities of echocardiogram might require further cardiac workup--> cardiology consult appreciated and recommended outpatient ischemic workup.
discussed with son over the phone today. As far as I can tell on the note from cardiology recommended outpatient ischemic workup but some still remain the patient discussed about possible cardiac catheterization and discussed the case patient and
family agree with cardiac catheterization--> will defer to cardiology in that regard.
Left Foot Cellulitis
-Continue Keflex, oral
-Consulted Wound Care--> appreciated input and continue local care
CKD Stage III
-Monitor creatinine closely while on diuretics
-Creatinine 1.5 today which is stable
ANCA Positive Vasculitis
-Continue prednisone
-Repeated ESR, CRP C3 and C4--> no evidence of flare of vasculitis at the moment given ESR normal, CRP only minimally elevated and less than previously, and C3-C4 normal.
Dementia, probably Alzheimer's
Insomnia
-Continue melatonin and Seroquel
Hypothyroidism
-Continue levothyroxine
DVT proph: SC Heparin
Code Status: Full Code
Anticipated Discharge: > 48 hours
Subjective/Interval History
-
Date of Service: September 29, 2023
Patient denies shortness of breath. Less peripheral edema. No chest pain.
Objective Data
-
Labs:
Laboratory Results
09/29/23
05:52
Sodium 137
Potassium 3.6
Chloride 97 L
Carbon Dioxide 35 H
BUN 48 H
Creatinine 1.5 H
Glucose 113 H
Calcium 9.1
Vital Signs:
Vital Signs
Temp Pulse Resp BP Pulse Ox
97.5 F 107 20 141/99 92
09/29/23 05:44 09/29/23 03:32 09/29/23 03:32 09/29/23 03:32 09/29/23 03:32
I&O
09/28/23 09/29/23 09/30/23
06:59 06:59 06:59
Intake Total 1140 / 1140 120 / 120
Balance 1140 / 1140 120 / 120
[2023-09-29 08:32] VITALS: BP 108/61
[2023-09-29] MEDS: KEFLEX 500 MG PO ×2 (09:13→22:55)
[2023-09-29] MEDS: DELTASONE 7.5 MG PO (09:14)
[2023-09-29] MEDS: COREG 6.25 MG PO ×2 (09:15→22:54)
[2023-09-29] MEDS: COZAAR 25 MG PO (09:15)
[2023-09-29] MEDS: LASIX 40 MG IV ×2 (09:19→15:49)
[2023-09-29] MEDS: FLUSH (NSS) 1 FLUSH IV (09:23)
[2023-09-29 12:00] VITALS: BP 128/80
--- NOTE | 2023-09-29 14:16 | PN.CDI ---
CDI
- -
CDI:
Physician Documentation Request
Admit Date: 09/25/23 17:44
Dear Doctor Nancy,
Patient admitted with acute systolic congestive heart failure.
Na levels documented below:
Laboratory Tests
09/25/23 09/26/23
12:20 05:34
Sodium 132 L 134 L
Based on the above, could you clarify in the progress notes, the appropriate diagnosis, if significant, that supports the above abnormalities and additional evaluation, monitoring and/or treatment rendered:
Hyponatremia
Insignificant abnormal lab findings
Other
Use of terms such as suspected, likely, concern for, or probable (associated with a specific diagnosis that is being evaluated, monitored, or treated as if it exists) are acceptable and can be coded in the inpatient setting, when documented at the
time of discharge.
Thank you,
Lillian LEBRONN,RN,CCDS
CDI Specialist
Available via [place] text
Please use your independent medical judgment in providing your response.
--- NOTE | 2023-09-29 14:32 | PN.CDI ---
CDI
- -
CDI:
Physician Documentation Request
Admit Date: 09/25/23 17:44
Dear Doctor Nancy,
Patient admitted with acute systolic congestive heart failure.
Platelet counts documented below:
Laboratory Tests
09/25/23 09/26/23 09/27/23
15:48 05:34 05:39
Plt Count 94 L 77 L 72 L
Based on the above, could you clarify in the progress notes, the appropriate diagnosis, if significant, that supports the above abnormalities and additional evaluation, monitoring and/or treatment rendered:
Thrombocytopenia
Insignificant abnormal lab findings
Other
Use of terms such as suspected, likely, concern for, or probable (associated with a specific diagnosis that is being evaluated, monitored, or treated as if it exists) are acceptable and can be coded in the inpatient setting, when documented at the
time of discharge.
Thank you,
Lillian LOBO,RN,CCDS
CDI Specialist
Available via [place] text
Please use your independent medical judgment in providing your response.
[2023-09-29 15:01] VITALS: BP 140/82
--- NOTE | 2023-09-29 15:47 | W.PN.CARDCBS ---
Today's Communication / Plan
-
Reduce Lasix to 40mg daily
Optimize goal-directed medical therapy as able
Consider stress test Monday
Impression / Plan
-
PCP: Dr. Yordy Ibarra
Cardiology: None prior to admission
Impression:
Acute HFrEF
LLE cellulitis
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
Moderate to severe MR by echo 09/26/23
Severe TR by echo 09/26/23
Recent series of admissions for acute HF, generalized weakness and eventually diagnosed with ANCA vasculitis 10/17/22 until 12/01/22
h/o ANCA vasculitis
CKD 3
Dementia
Hypothyroidism
h/o GBS and dysautonomia symptoms that resolved with ANCA vasculitis treatment
h/o diastolic dysfunction
Echo 10/18/22:�EF 60-65%, mild to mod aortic regurgitation, mild TR
Echo 09/26/23: EF 20-25%, moderate to severe MR, severe TR, mild to moderate aortic insufficiency
Plan:
New cardiomyopathy, unknown etiology with a EF 5% by echocardiogram 09/26/2023 with moderate to severe mitral regurgitation and severe tricuspid regurgitation as well as mild to moderate aortic insufficiency
-Records received patient's portal from [place] from March 19, 2023 including an echocardiogram which noted LV systolic function to be normal estimated 65% with no regional wall motion abnormalities and grade 1 diastolic dysfunction. She had
elevated left atrial filling pressures. Right ventricle was mildly enlarged with mildly reduced RV systolic function. She had mild mitral and tricuspid regurgitation. Estimated right ventricular systolic pressures were severely elevated at 60
mmHg assuming a right atrial pressure of 15 mmHg.
-Also reviewed a patient portal discharge summary from her admission in [place] March 18 - April 08, 2023 for sepsis and acute respiratory failure requiring intubation.Patient presented with shortness of breath requiring intubation with CT of
the chest noting pneumonia and diffuse interstitial lung disease. 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 She was extubated
March 22 and then needed to be reintubated March 26. She was eventually reextubated March 28 and required 2 L nasal cannula at time of discharge. She was also treated for heart failure with preserved ejection fraction. She was discharged on 40
mg of Lasix every other day. She did have elevated troponins which they felt were the demand ischemia.
-Cardiomyopathy etiology unclear, ischemic? Possible rituximab induced [she had 2 doses]. Call placed to [facility] to discuss. Check cardiac troponin
-Discussed with family options for further evaluation of new cardiomyopathy including ischemic evaluation however they have historically been more conservative given her advanced cognitive impairment/dementia. Overall, given multiple comorbidities
and advanced dementia I do not believe without clear benefit, she is a poor candidate for invasive procedures/LHC. Can consider Lexiscna nuclear stress testing on Monday.
-Continue Coreg to 6.25 mg p.o. twice daily; continue losartan.
-Volume status appears improved. Reduce Lasix to 40 mg once daily
-Would consider switching to Entresto and Jardiance. Will ask case management to look into cost.
-Follow Cre. Patient developed REX last admission, but this was prior to her ANCA diagnosis. 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
Progress Note - Change Management Director
Subjective
Date of Service: September 29, 2023
Seen and examined. Patient out of bed to chair. Son at bedside. With the help of son translating, patient offers no specific complaints but history is unreliable.
Objective
Labs:
09/27/23 05:39
09/29/23 05:52
Labs
Hgb 14.4 g/dL (12.0-16.0) 09/27/23 05:39
Hct 42.8 % (37.0-47.0) 09/27/23 05:39
Plt Count 72 10^3/uL (130-400) L 09/27/23 05:39
Sodium 137 mmol/L (135-145) 09/29/23 05:52
Potassium 3.6 mmol/L (3.5-5.1) 09/29/23 05:52
BUN 48 mg/dl (7-17) H 09/29/23 05:52
Creatinine 1.5 mg/dL (0.6-1.0) H 09/29/23 05:52
Glucose 113 mg/dl (70-99) H 09/29/23 05:52
Vital Signs and I&O:
Vital Signs
Temp Pulse Resp BP Pulse Ox
95.8 F L 101 24 140/82 94
09/29/23 15:01 09/29/23 15:01 09/29/23 15:01 09/29/23 15:01 09/29/23 15:01
Vital Signs
Temp Pulse Resp BP Pulse Ox
95.8 F L 101 24 140/82 94
09/29/23 15:01 09/29/23 15:01 09/29/23 15:01 09/29/23 15:01 09/29/23 15:01
Intake & Output
09/27/23 09/28/23 09/29/23 09/30/23
06:59 06:59 06:59 06:59
Intake Total 480 / 480 1140 / 1140 120 / 120
Balance 480 / 480 1140 / 1140 120 / 120
Physical Exam
Physical Exam
GEN: Awake and alert. Sitting out of bed to chair
HEENT: mm
LUNGS: dec BS at bases
CV: Reg, S1/S2, 2/6 syst LSB
ABD: soft, BS+, NT/ND
EXT: +edema
[2023-09-29] MEDS: SYNTHROID PO (15:51)
[2023-09-29 19:40] VITALS: BP 154/91
[2023-09-29] MEDS: SEROQUEL 50 MG PO (22:53)
[2023-09-29] MEDS: MELATONIN 5 MG PO (22:53)
[2023-09-29 23:24] VITALS: BP 130/59
[2023-09-30 03:49] VITALS: BP 126/86
[2023-09-30] MEDS: SYNTHROID 100 MCG PO (05:14)
[2023-09-30 06:00] VITALS: BMI 28.9
[2023-09-30 07:40] VITALS: BP 143/94
[2023-09-30 08:14] LABS: Blood Urea Nitrogen 45 mg/dl (7-17); Carbon Dioxide 37 mmol/L (22-30); Chloride 93 mmol/L (98-107); Estimated Creatinine Clearance 31 ml/min; Glucose 111 mg/dl (70-99); Potassium 3.3 mmol/L (3.5-5.1); Sodium 138 mmol/L (135-145); eGFR 42.35
[2023-09-30] MEDS: DELTASONE 7.5 MG PO (08:28)
[2023-09-30] MEDS: KEFLEX 500 MG PO ×2 (08:28→22:05)
[2023-09-30] MEDS: COREG 6.25 MG PO (08:29)
[2023-09-30] MEDS: HEPARIN 5000 UNITS SC ×3 (08:29→23:26)
[2023-09-30] MEDS: COZAAR 25 MG PO (08:29)
[2023-09-30] MEDS: LASIX 40 MG IV (08:30)
--- NOTE | 2023-09-30 10:33 | W.PN.HOSP.TC ---
Addendum entered and electronically signed by Behzad Cruz MD 09/30/23 15:12:
Thrombocytopenia
Hyponatremia
Original Note:
Today's Communication/Plan
-
IV Lasix. Oral cephalexin.
Assessment / Plan
Assessment / Plan
Physical exam:
General: Acutely ill
HEENT: Normocephalic, Atraumatic and Moist Mucous Membranes
Respiratory: Bilateral coarse crackles; Negative Wheezes or Rhonchi
Cardiac: Regular Rhythm and S1/S2, systolic murmur
GI: Soft, Nontender and Nondistended
Musculoskeletal: Bilateral edema, erythema and tenderness at left foot dorsal aspect.
Neuro: Awake, Alert and Disoriented, cognitive deficits.
Psych: Calm
A/P:
Acute systolic congestive heart Failure:
Suspicion for etiology of heart failure related to use of Rituxan (not very common, but case reports reviewed related to cardiotoxicity).
IV diuretics, Lasix IV 40 mg once daily
Monitor strict I/O
Monitor daily weight
Monitor renal function and electrolytes
Reviewed latest echocardiogram on our system and shows EF 20 to 25% which is new from prior echocardiogram and moderate to severe MR.
Continue guideline-directed medical therapy for heart failure (GDMT)--> on Coreg 6.25 mg twice a day, Cozaar 25 mg daily, checking cost of Jardiance and Entresto per cardiology.
Follow up clinical response
Cardiology discussed with Dr. Contreras one of my partners in my group who knows patient and family as well.
Given abnormalities of echocardiogram might require further cardiac workup--> cardiology consult appreciated and recommended outpatient ischemic workup.
discussed with son over the phone yesterday. As far as I can tell on the note from cardiology recommended outpatient ischemic workup but some still remain the patient discussed about possible cardiac catheterization and discussed the case patient
and family agree with cardiac catheterization--> will defer to cardiology in that regard. It appears that cardio is doing a stress test on Sunday 10/01.
Left Foot Cellulitis
-Continue Keflex, oral
-Consulted Wound Care--> appreciated input and continue local care
CKD Stage III
-Monitor creatinine closely while on diuretics
-Creatinine 1.3 today which is stable and actually improved from last few days.
ANCA Positive Vasculitis
-Continue prednisone
-Repeated ESR, CRP C3 and C4--> no evidence of flare of vasculitis at the moment given ESR normal, CRP only minimally elevated and less than previously, and C3-C4 normal.
Dementia, probably Alzheimer's
Insomnia
-Continue melatonin and Seroquel
Hypothyroidism
-Continue levothyroxine
DVT proph: SC Heparin
Code Status: Full Code
Anticipated Discharge: > 48 hours
Subjective/Interval History
-
Date of Service: September 30, 2023
Left shortness of breath and less peripheral edema. Cognitive deficits.
Objective Data
-
Labs:
Laboratory Results
09/30/23 09/30/23
06:00 06:16
WBC Pending
Hgb Pending
Hct Pending
Plt Count Pending
Sodium 138
Potassium 3.3 L
Chloride 93 L
Carbon Dioxide 37 H
BUN 45 H
Creatinine 1.3 H
Glucose 111 H
Calcium 9.0
Vital Signs:
Vital Signs
Temp Pulse Resp BP Pulse Ox
97.9 F 91 20 143/94 96
09/30/23 08:06 09/30/23 08:30 09/30/23 07:40 09/30/23 08:30 09/30/23 07:40
I&O
09/29/23 09/30/23 10/01/23
06:59 06:59 06:59
Intake Total 600 / 600 420 / 420
Balance 600 / 600 420 / 420
[2023-09-30 11:26] VITALS: BP 123/93
[2023-09-30 11:46] LABS: % Basophils 0.4 % (0-2); % Immature Granulocytes 0.4 % (0-0.5); % Lymphocytes 9.9 % (20.5-51.1); % Monocytes 3.4 % (1.7-9.3); % Neutrophils 81.9 % (42.2-75.2); Absolute Eosinophils 0.2 10^3/uL (0-0.7); Absolute Lymphocytes 0.5 10^3/uL (1.2-3.4); Absolute Monocytes 0.2 10^3/uL (0.1-0.6); Absolute Neutrophils 4.1 10^3/uL (1.4-6.5); Hematocrit 46.3 % (37.0-47.0); Hemoglobin 15.7 g/dL (12.0-16.0); Mean Corp Hgb Conc. 33.9 g/dL (33.0-37.0); Mean Corpuscular Hgb 31.8 pg (27.0-31.0); Mean Corpuscular Volume 93.9 fL (81.0-99.0); Mean Platelet Volume 10.6 fL (7.4-10.4); Nucleated Red Blood Cells % 0 %; Platelet Count 72 10^3/uL (130-400); Red Blood Cell Count 4.93 10^6/uL (4.20-5.40); Red Cell Dist. Width 14.4 % (11.5-14.5)
[2023-09-30 12:00] LABS: NT-proBNP 9760 pg/ml
[2023-09-30] MEDS: TYLENOL 650 MG PO (14:39)
[2023-09-30 15:47] VITALS: BP 138/94
[2023-09-30 19:13] VITALS: BP 123/76
[2023-09-30] MEDS: COREG 12.5 MG PO (22:06)
[2023-09-30] MEDS: KCL 40 MEQ PO (22:06)
[2023-09-30] MEDS: MELATONIN 5 MG PO (22:07)
[2023-09-30] MEDS: SEROQUEL 50 MG PO (22:09)
[2023-09-30] MEDS: COREG PO (22:50)
[2023-09-30 23:30] VITALS: BP 129/72
[2023-10-01] VITALS (8 sets, daily range): BP systolic 110–136; BP diastolic 64–104; BMI 28.9; BMI 29.8
[2023-10-01] MEDS: TYLENOL 650 MG PO ×2 (00:43→14:13)
[2023-10-01] MEDS: SYNTHROID 100 MCG PO (06:38)
[2023-10-01 08:05] LABS: Blood Urea Nitrogen 42 mg/dl (7-17); Carbon Dioxide 33 mmol/L (22-30); Chloride 95 mmol/L (98-107); Estimated Creatinine Clearance 34 ml/min; Glucose 131 mg/dl (70-99); Sodium 135 mmol/L (135-145); eGFR 46.62
--- NOTE | 2023-10-01 08:30 | W.PN.HOSP.TC ---
Addendum entered and electronically signed by Behzad Cruz MD 10/01/23 19:30:
Patient respiratory and mental status worsened today. Suspected aspiration event and possible worsening heart failure. Obtained extensive w/u including repeat labs, bnp, trop, crp, ammonia, abg, ct head and cxr among other. Given extra IV Lasix,
started on antibiotics, Zosyn and nebs as needed. Might consider BiPAP if resp condition compromise. Discussed with cardiology who made family aware of change in condition and we are waiting for any updates on code status(currently full code).
Transfer to IMU for closer monitoring.
Original Note:
Today's Communication/Plan
-
Continue IV Lasix.
Assessment / Plan
Assessment / Plan
Physical exam:
General: Acutely ill
HEENT: Normocephalic, Atraumatic and Moist Mucous Membranes
Respiratory: Bilateral coarse crackles; Negative Wheezes or Rhonchi
Cardiac: Regular Rhythm and S1/S2, systolic murmur
GI: Soft, Nontender and Nondistended
Musculoskeletal: Bilateral edema, erythema and tenderness at left foot dorsal aspect.
Neuro: Awake, Alert and Disoriented, cognitive deficits.
Psych: Calm
A/P:
Acute systolic congestive heart Failure:
Suspicion for etiology of heart failure related to use of Rituxan (not very common, but case reports reviewed related to cardiotoxicity).
IV diuretics, Lasix IV 40 mg once daily
Monitor strict I/O
Monitor daily weight
Monitor renal function and electrolytes
Reviewed latest echocardiogram on our system and shows EF 20 to 25% which is new from prior echocardiogram and moderate to severe MR.
Continue guideline-directed medical therapy for heart failure (GDMT)--> on Coreg 6.25 mg twice a day, Cozaar 25 mg daily, checking cost of Jardiance and Entresto per cardiology.
Follow up clinical response
Cardiology discussed with Dr. Contreras one of my partners in my group who knows patient and family as well.
Given abnormalities of echocardiogram might require further cardiac workup--> cardiology consult appreciated and recommended outpatient ischemic workup.
discussed with son over the phone yesterday. As far as I can tell on the note from cardiology recommended outpatient ischemic workup but some still remain the patient discussed about possible cardiac catheterization and discussed the case patient
and family agree with cardiac catheterization--> will defer to cardiology in that regard. It appears that cardio is doing a stress test on Sunday 10/01.
Left Foot Cellulitis
-Continue Keflex, oral
-Consulted Wound Care--> appreciated input and continue local care
Thrombocytopenia
-Monitor every so often
-No signs of bleeding
Hyponatremia
-Improved, NA 135 today
-Continue to monitor
CKD Stage III
-Monitor creatinine closely while on diuretics
-Creatinine 1.2 today which is stable and actually improved from last few days.
ANCA Positive Vasculitis
-Continue prednisone
-Repeated ESR, CRP C3 and C4--> no evidence of flare of vasculitis at the moment given ESR normal, CRP only minimally elevated and less than previously, and C3-C4 normal.
Dementia, probably Alzheimer's
Insomnia
-Continue melatonin and Seroquel
Hypothyroidism
-Continue levothyroxine
DVT proph: SC Heparin
Code Status: Full Code
Anticipated Discharge: 24 - 48 hours
Subjective/Interval History
-
Date of Service: October 01, 2023
Less shortness of breath, less peripheral edema. Cognitive deficits.
Objective Data
-
Labs:
Laboratory Results
10/01/23 10/01/23
06:16 07:14
Sodium Cancelled 135
Potassium Cancelled 4.0
Chloride Cancelled 95 L
Carbon Dioxide Cancelled 33 H
BUN Cancelled 42 H
Creatinine Cancelled 1.2 H
Glucose Cancelled 131 H
Calcium Cancelled 9.0
Vital Signs:
Vital Signs
Temp Pulse Resp BP Pulse Ox
97.1 F 106 19 134/104 92
10/01/23 03:25 10/01/23 07:42 10/01/23 07:42 10/01/23 07:42 10/01/23 07:42
I&O
09/30/23 10/01/23 10/02/23
06:59 06:59 06:59
Intake Total 420 / 420 810 / 810
Balance 420 / 420 810 / 810
[2023-10-01] MEDS: KEFLEX 500 MG PO (10:01)
[2023-10-01] MEDS: COZAAR 25 MG PO (10:01)
[2023-10-01] MEDS: ALDACTONE 12.5 MG PO (10:01)
[2023-10-01] MEDS: DELTASONE 7.5 MG PO (10:01)
[2023-10-01] MEDS: LASIX 40 MG IV ×2 (10:02→16:12)
[2023-10-01] MEDS: COREG 12.5 MG PO (10:02)
[2023-10-01] MEDS: HEPARIN 5000 UNITS SC ×2 (10:02→18:11)
--- NOTE | 2023-10-01 11:25 | CM ---
CM consulted to do carter check for medications
Called [facility] [phone] for carter check
Per Pharm staff - pt currently has no insurance for RX
30 day supply for meds is as follows per pharm
Farxiga 10mg daily - $674
Jardiance 10 mg daily - $726
Entresto 24/26mg BID - $817
[2023-10-01 14:58] LABS: % Basophils 0.2 % (0-2); % Eosinophils 1.7 % (0-6); % Immature Granulocytes 0.2 % (0-0.5); % Lymphocytes 13.3 % (20.5-51.1); % Neutrophils 80.6 % (42.2-75.2); Absolute Eosinophils 0.1 10^3/uL (0-0.7); Absolute Lymphocytes 0.5 10^3/uL (1.2-3.4); Absolute Monocytes 0.2 10^3/uL (0.1-0.6); Absolute Neutrophils 3.3 10^3/uL (1.4-6.5); Hematocrit 44.3 % (37.0-47.0); Hemoglobin 15.1 g/dL (12.0-16.0); Mean Corp Hgb Conc. 34.1 g/dL (33.0-37.0); Mean Corpuscular Hgb 31.7 pg (27.0-31.0); Mean Corpuscular Volume 93.1 fL (81.0-99.0); Mean Platelet Volume 10.7 fL (7.4-10.4); Nucleated Red Blood Cells % 0 %; Platelet Count 68 10^3/uL (130-400); Red Blood Cell Count 4.76 10^6/uL (4.20-5.40); Red Cell Dist. Width 14.6 % (11.5-14.5); White Blood Cell Count 4.1 10^3/uL (4.8-10.8)
[2023-10-01 15:08] LABS: Lactic Acid 2.3 mmol/L (0.7-2.0)
[2023-10-01 15:12] LABS: Ammonia < 9 umol/L (9-30)
--- NOTE | 2023-10-01 15:19 | W.PN.CARDCBS ---
Addendum entered and electronically signed by Vanessa Cuellar DO 10/01/23 18:41:
Patient reevaluated after notified for increasing work of breathing/respiratory distress. Spoke with nursing and aides, progressive increased work of breathing, tachypnea since this morning. Aides report difficulty with lunch which was chicken
noodle soup with food pocketing and coughing. Portable chest x-ray reports chronic parenchymal disease, interstitial fibrosis with likely acute pneumonitis in the left mid lower lung. Right hemithorax and right pleural effusion present on prior
study. Radiology did not feel that the vasculature was actively congested. Head CT without acute abnormality. Lab work with normal hemoglobin, 15.1, WBC 4.1, platelets 68,000 [platelets 70s to 90s this admission]. PT/INR 13/1. Sodium 135,
potassium 4, BUN/creatinine 42/1.2. Carbon dioxide 33. Glucose 131. Lactate 2.3, 2.6 on 09/25/2023. Ammonia less than 9. Cardiac troponin 0.046. C-reactive protein 36.8. ESR 8 on admission. proBNP 79278, previously 9760. Procalcitonin 0.46.
ABG on 2 L nasal cannula: 7.5 4/45/142/38, 99%. Twelve-lead EKG normal sinus rhythm with left atrial enlargement and LVH. Lateral T wave inversion, consider lateral ischemia. EKG unchanged this admission however lateral T wave inversions are new
when compared to EKGs from October 2022. Patient had previously pulled out peripheral IVs. Once IV access established by nursing, provided Lasix 40 mg IV x 1. Aspirin 81 mg x 1. Nebulizer and Empiric antibiotics for possible aspiration. Discussed
with medicine attending and updated son. Will transfer to IMU for close monitoring of respiratory status. If increased work of breathing despite treatment could consider use of BiPAP.
Patient is tenuous with new biventricular cardiomyopathy with global hypokinesis and EF 20-25% and severe pulmonary hypertension estimated 60 mmHg with moderate to severe mitral regurgitation and severe tricuspid regurgitation complicating
significant comorbid conditions including advanced dementia, ANCA vasculitis and new thrombocytopenia with platelets < 70,000. Discussing with family how aggressive they want to be with work up of cardiomyopathy.? Possible ischemic although echo
findings are less suggestive. She is not a great candidate for invasive testing/procedures such as LHC given mental status and new thrombocytopenia. I do not think she would tolerate cardiac MRI. ?Possible sequela of vasculitis although likely not
acute with normal ESR on admission. Doubt acute myocarditis with low level troponin and inflammatory markers. Could consider Rheumatology and or Hematology consults. However, given her dementia and inability to fully participate in her medical
decisions, I would favor more conservative management approach. CODE STATUS discussed with family and will await their decision.
Vitals: Heart rate 95, blood pressure 128/89, pulse ox 98% on 2 L nasal cannula. Afebrile awake but not as mentally alert as previous. Shallow, rapid breaths, respiratory rate 33. Mucous membranes appear dry. Regular, positive S1-S2. 2/6 SM
with overall distant heart sounds. Bronchovesicular breath sounds, coarse with diffuse rhonchi and end expiratory wheezing. No lower extremity edema. Grossly nonfocal although neurologic exam difficult
Original Note:
Today's Communication / Plan
-
Continue diuresis
Optimize medical therapy as able
Lexiscan nuclear stress test planned tentatively tomorrow
Impression / Plan
-
PCP: Dr. Yordy Ibarra
Cardiology: None prior to admission
Impression:
Acute HFrEF
LLE cellulitis
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
Moderate to severe MR by echo 09/26/23
Severe TR by echo 09/26/23
Recent series of admissions for acute HF, generalized weakness and eventually diagnosed with ANCA vasculitis 10/17/22 until 12/01/22
h/o ANCA vasculitis
CKD 3
Dementia
Hypothyroidism
h/o GBS and dysautonomia symptoms that resolved with ANCA vasculitis treatment
h/o diastolic dysfunction
Echo 10/18/22:�EF 60-65%, mild to mod aortic regurgitation, mild TR
Echo 09/26/23: EF 20-25%, moderate to severe MR, severe TR, mild to moderate aortic insufficiency
Plan:
New cardiomyopathy, unknown etiology with a EF 5% by echocardiogram 09/26/2023 with moderate to severe mitral regurgitation and severe tricuspid regurgitation as well as mild to moderate aortic insufficiency
-Records received patient's portal from [place] from March 19, 2023 including an echocardiogram which noted LV systolic function to be normal estimated 65% with no regional wall motion abnormalities and grade 1 diastolic dysfunction. She had
elevated left atrial filling pressures. Right ventricle was mildly enlarged with mildly reduced RV systolic function. She had mild mitral and tricuspid regurgitation. Estimated right ventricular systolic pressures were severely elevated at 60
mmHg assuming a right atrial pressure of 15 mmHg.
-Also reviewed a patient portal discharge summary from her admission in [place] March 18 - April 08, 2023 for sepsis and acute respiratory failure requiring intubation.Patient presented with shortness of breath requiring intubation with CT of
the chest noting pneumonia and diffuse interstitial lung disease. 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 She was extubated
March 22 and then needed to be reintubated March 26. She was eventually reextubated March 28 and required 2 L nasal cannula at time of discharge. She was also treated for heart failure with preserved ejection fraction. She was discharged on 40
mg of Lasix every other day. She did have elevated troponins which they felt were the demand ischemia.
-Cardiomyopathy, etiology unclear.
-There was concern raised about rare rituximab reaction however she has not had an infusion since November 2022 with normal ejection fraction in February 2023 per [facility] records
-Mildly abnormal cardiac troponin 0.46, repeat
-Discussed with family options for further evaluation of new cardiomyopathy including ischemic evaluation however they have historically been more conservative given her advanced cognitive impairment/dementia. Overall, given multiple comorbidities
and advanced dementia I do not believe without clear benefit, she is a poor candidate for invasive procedures/LHC. Can consider Lexiscna nuclear stress testing on Monday to exclude large area of myocardium at risk.
-Started aspirin 81 mg daily
-Increased carvedilol 12.5 mg twice daily
-Continue losartan 25 mg daily. Continue spironolactone 12.5 mg daily
-Spoke with case management who informed me that patient does not have prescription coverage [pharmacy told her that premiums were not paid] with cost of medication such as Jardiance, Farxiga and Entresto all over $600 each. Patient's family states
that they have independence personal choice and case management will look into cost again on Monday.
-Continue Lasix 40 mg daily
-Renal function has improved, currently 1.2
-Follow Cre. Patient developed REX last admission, but this was prior to her ANCA diagnosis. 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
Progress Note - Transmitter Engineer In Charge
Subjective
Date of Service: October 01, 2023
Seen and examined. Patient not able to offer review of symptoms. Continues with shallow breathing. Family not at bedside.
Objective
Labs:
10/01/23 14:43
Labs
Hgb 15.1 g/dL (12.0-16.0) 10/01/23 14:43
Hct 44.3 % (37.0-47.0) 10/01/23 14:43
Plt Count 68 10^3/uL (130-400) L 10/01/23 14:43
PT 13.0 Sec (11.4-14.6) 10/01/23 14:43
INR 1.00 10/01/23 14:43
Sodium 135 mmol/L (135-145) 10/01/23 07:14
Potassium 4.0 mmol/L (3.5-5.1) 10/01/23 07:14
BUN 42 mg/dl (7-17) H 10/01/23 07:14
Creatinine 1.2 mg/dL (0.6-1.0) H 10/01/23 07:14
Glucose 131 mg/dl (70-99) H 10/01/23 07:14
Vital Signs and I&O:
Vital Signs
Temp Pulse Resp BP Pulse Ox
97.4 F 88 18 126/89 90
10/01/23 11:24 10/01/23 13:49 10/01/23 11:24 10/01/23 13:49 10/01/23 11:24
Vital Signs
Temp Pulse Resp BP Pulse Ox
97.4 F 88 18 126/89 90
10/01/23 11:24 10/01/23 13:49 10/01/23 11:24 10/01/23 13:49 10/01/23 11:24
Intake & Output
09/29/23 09/30/23 10/01/23 10/02/23
06:59 06:59 06:59 06:59
Intake Total 600 / 600 420 / 420 810 / 810
Balance 600 / 600 420 / 420 810 / 810
Physical Exam
Physical Exam
GEN: NAD, awake and alert
HEENT: mmm
LUNGS: Bronchovesicular breath sounds, decreased at bases
CV: Reg, S1/S2, 2/6 syst LSB
ABD: soft, BS+, NT/ND
EXT: Trace pedal edema
[2023-10-01 15:24] LABS: Procalcitonin 0.46 ng/ml (0.0-0.25)
[2023-10-01 15:26] LABS: NT-proBNP 10900 pg/ml; Troponin I 0.046 ng/ml
[2023-10-01 16:11] LABS: B.E. 14.1 mmol/L; HCO3 38.5 mmol/L (21-28); O2 Saturation % 99.6 % (94-98); PCO2 45 mmHg (32-35); PO2 142 mmHg (83-108); pH 7.54 (7.35-7.45)
[2023-10-01] MEDS: LOW STRENGTH ASPIRIN 81 MG PO (16:12)
[2023-10-01 17:06] LABS: ALT (SGPT) 39 U/L (0-35); AST (SGOT) 54 U/L (14-36); Albumin 3.4 g/dl (3.5-5.0); Alkaline Phosphatase 167 U/L (38-126); Blood Urea Nitrogen 39 mg/dl (7-17); Calcium 8.8 mg/dl (8.4-10.2); Carbon Dioxide 34 mmol/L (22-30); Chloride 98 mmol/L (98-107); Estimated Creatinine Clearance 34 ml/min; Glucose 137 mg/dl (70-99); Potassium 4.2 mmol/L (3.5-5.1); Sodium 135 mmol/L (135-145); Total Bilirubin 1.6 mg/dl (0.2-1.3); Total Protein 5.6 g/dl (6.3-8.2); eGFR 46.62
[2023-10-01 17:50] LABS: Urine Albumin Trace (Neg - Trace); Urine Bilirubin Negative (Negative); Urine Color Yellow; Urine Glucose Negative (Negative); Urine Ketone Negative (Negative); Urine Leukocyte Negative (Negative); Urine Nitrite Negative (Negative); Urine Occult Blood Negative (Negative); Urine Specific Gravity 1.005 (<1.030); Urine Urobilinogen Negative (Neg - 1+)
[2023-10-01 17:51] LABS: Urine Character Clear (Clear)
[2023-10-01] MEDS: UNASYN IV (18:15)
--- NOTE | 2023-10-01 19:18 | PTCARENOTE ---
About 1400hrs patient noted to be tachypneic, restless, and more confused than baseline. Oxygen sat 90% on RA. Placed on 2 liters. MD notified. Labs, chest film and head CT ordered. EKG and VS obtained. Additional 40mg IV lasix ordered by cards
and given. IV Abx ordered and PRN Nebs. MD ordered transfer to IMU. Report given at 1900 and transferred to [id number].
--- NOTE | 2023-10-01 20:00 | PTCARENOTE ---
Received pt as transfer from [facility]. Pt upgraded to IMU level status due to change in mental status and increased work of breathing and closer monitoring of resp status. Pt with hx dementia at baseline, pt confused, unable to follow commands, pt
opens eyes to voice, restless, pulling at heart monitor, rolling sideways in bed. DIL at bedside reports pt confused at baseline, but able to follow commands and make needs known. DIL attempting to converse with pt but pt unable to even participate
with daughter. Order obtained for B/L hand mitts for pt safety. Medsitter in place. HR in 90s in NSR with frequent PVC's on the monitor. POX 98% on 2 LO2 NC. Lungs dec with scattered audible ex wheezes. Scattered rhonchi/ course on left t/o.
Tachypneic/ belly breathing at rest. + bowel, round obese abd. Ecchymotic abd. Pt inc of urine, pure wick now in place. +1 B/L LE edema. Weak pedal pulses. Left foot dressing intact. Left forearm int capped at this time.
--- NOTE | 2023-10-01 21:45 | PTCARENOTE ---
Pt tested COVID +. STATION AGENT notified. Pt placed on isolation. Pt unable to take PO at this time. Pt remains confused. Will continue to monitor.
[2023-10-01 21:58] LABS: COVID-19 Antigen Positive (Negative)
[2023-10-01 22:04] LABS: Lactic Acid 1.4 mmol/L (0.7-2.0)
[2023-10-01] MEDS: COREG PO (22:07)
[2023-10-01] MEDS: MELATONIN PO (22:07)
[2023-10-01] MEDS: SEROQUEL PO (22:07)
[2023-10-02] VITALS (11 sets, daily range): BP systolic 102–158; BP diastolic 58–109; BMI 29.8
[2023-10-02] MEDS: ZOSYN 50 IV ×4 (00:27→17:54)
[2023-10-02] MEDS: DECADRON 6 MG IV ×2 (00:27→10:20)
[2023-10-02] MEDS: HEPARIN 5000 UNITS SC ×3 (00:27→17:55)
[2023-10-02 01:12] LABS: Troponin I 0.055 ng/ml
--- NOTE | 2023-10-02 01:19 | W.PN.UPDATE ---
Update Note
Progress Note Update
Covid positive, stable VS, 98.1, 16, 113/73, 86 98 % 2l, Noted work of abdomen breathing at rest, expiratory wheezes, IV Dexamethasone 6 mg given once. troponin 0.055, will continue to trend.
IV Ravidasvir ordered, Discussed with pharmacist.
[2023-10-02] MEDS: NSS 30 IV (03:49)
[2023-10-02] MEDS: VEKLURY 250 MG IV (03:49)
[2023-10-02 04:25] LABS: % Basophils 0.2 % (0-2); % Eosinophils 0.4 % (0-6); % Immature Granulocytes 0.6 % (0-0.5); % Lymphocytes 17.4 % (20.5-51.1); % Monocytes 4.4 % (1.7-9.3); Absolute Lymphocytes 0.9 10^3/uL (1.2-3.4); Absolute Monocytes 0.2 10^3/uL (0.1-0.6); Absolute Neutrophils 3.8 10^3/uL (1.4-6.5); Hematocrit 46.3 % (37.0-47.0); Mean Corp Hgb Conc. 32.4 g/dL (33.0-37.0); Mean Corpuscular Hgb 31.9 pg (27.0-31.0); Mean Corpuscular Volume 98.5 fL (81.0-99.0); Mean Platelet Volume 11.6 fL (7.4-10.4); Nucleated Red Blood Cells % 0 %; Platelet Count 72 10^3/uL (130-400); Red Cell Dist. Width 14.5 % (11.5-14.5)
[2023-10-02 04:41] LABS: Blood Urea Nitrogen 38 mg/dl (7-17); Calcium 8.6 mg/dl (8.4-10.2); Carbon Dioxide 35 mmol/L (22-30); Chloride 98 mmol/L (98-107); Estimated Creatinine Clearance 30 ml/min; Glucose 119 mg/dl (70-99); Magnesium 2.2 mg/dl (1.6-2.3); Potassium 4.6 mmol/L (3.5-5.1); Sodium 137 mmol/L (135-145); eGFR 42.35
--- NOTE | 2023-10-02 07:47 | W.PN.HOSP.TC ---
Today's Communication/Plan
-
IV remdesivir, IV dexamethasone, IV Zosyn. IV Lasix.
Assessment / Plan
Assessment / Plan
Physical exam:
General: Acutely ill
HEENT: Normocephalic, Atraumatic and Moist Mucous Membranes
Respiratory: Bilateral coarse crackles; Negative Wheezes or Rhonchi
Cardiac: Regular Rhythm and S1/S2, systolic murmur
GI: Soft, Nontender and Nondistended
Musculoskeletal: Bilateral edema, erythema and tenderness at left foot dorsal aspect.
Neuro: Awake, Alert and Disoriented, cognitive deficits.
Psych: Calm
A/P:
Acute systolic congestive heart Failure:
Suspicion for etiology of heart failure related to use of Rituxan (not very common, but case reports reviewed related to cardiotoxicity).
IV diuretics, Lasix IV 40 mg once daily
Monitor strict I/O
Monitor daily weight
Monitor renal function and electrolytes
Reviewed latest echocardiogram on our system and shows EF 20 to 25% which is new from prior echocardiogram and moderate to severe MR.
Continue guideline-directed medical therapy for heart failure (GDMT)--> on Coreg 6.25 mg twice a day, Cozaar 25 mg daily, checking cost of Jardiance and Entresto per cardiology.
Follow up clinical response
Transferred to IMU on 09/30 due to resp deterioration
Ischemic w/u on hold until clinical status improves
Discussed with son today on 10/01 and updated him about plan of care. Also son tells me they discussed about CODE STATUS and they want her to be DO NOT INTUBATE but yes to resuscitation including chest compressions or shock.
Acute hypoxic respiratory failure:
-Multifactorial, heart failure related, COVID-19 (newly diagnosed), and aspiration pneumonia.
-Start remdesivir
-Start IV dexamethasone
-Supplemental oxygen
-Continue IV Zosyn
-Speech therapy swallowing eval
COVID-19:
-Respiratory isolation
-Remdesivir for 5 days
-Monitor renal function and LFTs (LFTs and renal function elevated but not prohibitive)
-Dexamethasone for 10 days
-Follow-up inflammatory markers
Aspiration pneumonia:
-Speech eval--> npo and will advance to IDDS-4 if tolerated with aspiration precautions.
-Antibiotics
Toxic metabolic encephalopathy:
-Related to infection most likely with underlying dementia
-CT of the head no acute intracranial abnormalities
-Continue to monitor mental status
Left Foot Cellulitis
-Hold antibiotic since giving IV as above
-Consulted Wound Care--> appreciated input and continue local care
Thrombocytopenia
-Monitor every so often
-No signs of bleeding
Hyponatremia
-Improved, NA 135 today
-Continue to monitor
CKD Stage III
-Monitor creatinine closely while on diuretics
-Creatinine 1.2 today which is stable and actually improved from last few days.
ANCA Positive Vasculitis
-Hold prednisone while on IV dexa
-Repeated ESR, CRP C3 and C4--> no evidence of flare of vasculitis at the moment given ESR normal, CRP only minimally elevated and less than previously, and C3-C4 normal.
Dementia, probably Alzheimer's
Insomnia
-Continue melatonin and Seroquel
Hypothyroidism
-Continue levothyroxine
DVT proph: SC Heparin
Code Status: DO NOT INTUBATE but yes to resuscitation including chest compressions or shock.
Anticipated Discharge: > 48 hours
Subjective/Interval History
-
Date of Service: October 02, 2023
Presented less short of breath today, still encephalopathic. Remains on 2 L of oxygen
Objective Data
-
Labs:
Laboratory Results
10/02/23
03:47
WBC 5.0
Hgb 15.0
Hct 46.3
Plt Count 72 L
Sodium 137
Potassium 4.6
Chloride 98
Carbon Dioxide 35 H
BUN 38 H
Creatinine 1.3 H
Glucose 119 H
Calcium 8.6
Vital Signs:
Vital Signs
Temp Pulse Resp BP Pulse Ox
97.4 F 83 16 142/91 99
10/02/23 03:57 10/02/23 04:45 10/02/23 04:45 10/02/23 04:00 10/02/23 04:45
I&O
10/01/23 10/02/23 10/03/23
06:59 06:59 06:59
Intake Total 810 / 810 540 / 540
Output Total 300 / 300
Balance 810 / 810 240 / 240
Review of Systems
-
Unable to obtain full review of systems at this time due to: Dementia
[2023-10-02] MEDS: SYNTHROID PO (08:29)
[2023-10-02] MEDS: COREG PO (08:30)
[2023-10-02] MEDS: ALDACTONE PO (08:30)
[2023-10-02] MEDS: COZAAR PO (08:30)
--- NOTE | 2023-10-02 09:58 | CM ---
Addendum entered by Shena Hernandez 10/02/23 15:44:
Met with son at nurses station and dc planning discussed
Family not interested in SNF, plan to take pt home, likely will need services at home
Original Note:
CM reviewed chart- pt transferred to IMU
COVID+ 3.3.24
Pt will need new PT/OT orders due to IMU transfer
Per attending, not medically appropriate for PT/OT today
CM will continue to follow for dc planning
Discharge Disposition- TBD
[2023-10-02] MEDS: LASIX 40 MG IV (10:23)
--- NOTE | 2023-10-02 12:22 | W.PN.CARDCBS ---
Today's Communication / Plan
-
Continue conservative therapy for cardiomyopathy.
Continue oral diuretics. Follow creatinine.
Impression / Plan
-
PCP: Dr. Yordy Ibarra
Cardiology: None prior to admission
Impression:
Acute HFrEF
LLE cellulitis
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
Moderate to severe MR by echo 09/26/23
Severe TR by echo 09/26/23
Recent series of admissions for acute HF, generalized weakness and eventually diagnosed with ANCA vasculitis 10/17/22 until 12/01/22
h/o ANCA vasculitis
CKD 3
Dementia
Hypothyroidism
h/o GBS and dysautonomia symptoms that resolved with ANCA vasculitis treatment
h/o diastolic dysfunction
Echo 10/18/22:�EF 60-65%, mild to mod aortic regurgitation, mild TR
Echo 09/26/23: EF 20-25%, moderate to severe MR, severe TR, mild to moderate aortic insufficiency
Plan:
New cardiomyopathy, unknown etiology with a EF 20-25% by echocardiogram 09/26/2023 with moderate to severe mitral regurgitation and severe tricuspid regurgitation as well as mild to moderate aortic insufficiency
General information: Records received patient's portal from [place] from March 19, 2023 including an echocardiogram which noted LV systolic function to be normal estimated 65% with no regional wall motion abnormalities and grade 1 diastolic
dysfunction. She had elevated left atrial filling pressures. Right ventricle was mildly enlarged with mildly reduced RV systolic function. She had mild mitral and tricuspid regurgitation. Estimated right ventricular systolic pressures were
severely elevated at 60 mmHg assuming a right atrial pressure of 15 mmHg. patient portal discharge summary from her admission in [place] March 18 - April 08, 2023 for sepsis and acute respiratory failure requiring intubation.Patient presented
with shortness of breath requiring intubation with CT of the chest noting pneumonia and diffuse interstitial lung disease. She was previously known to have ANCA vasculitis diagnosed in September during a hospitalization in [place] on chronic
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 She was extubated March 22 and then needed to be reintubated March 26. She was eventually reextubated March 28 and required 2 L nasal cannula at time of discharge. She was also treated for heart
failure with preserved ejection fraction. She was discharged on 40 mg of Lasix every other day. She did have elevated troponins which they felt were the demand ischemia.
-Cardiomyopathy, etiology unclear.
-There was concern raised about rare rituximab reaction however she has not had an infusion since November 2022 with normal ejection fraction in February 2023 per [facility] records
-Mildly abnormal cardiac troponin 0.055, would trend until peaks
-In discussions with family regarding evaluation of newly diagnosed cardiomyopathy including ischemic evaluation, family has been historically more conservative given her advanced cognitive impairment/dementia. Patient remains a poor candidate for
invasive procedures.
-Continue aspirin that was started.
-Carvedilol increased to 12.5 twice daily. Titrate as able.
-Continue losartan 25 mg daily. Continue spironolactone 12.5 mg daily
-In discussion with case management, the patient does not have prescription coverage [pharmacy told her that premiums were not paid] with cost of medication such as Jardiance, Farxiga and Entresto all over $600 each. Patient's family states that
they have independence personal choice and case management will look into cost again on Monday.
-Continue Lasix 40 mg daily. Appears euvolemic.
-Renal function overall stable with creatinine 1.3 on October 02, 2023. Monitor creatinine. 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
Progress Note - Cartoonist Special Effects
Subjective
Date of Service: October 02, 2023
Patient seen and examined. No chest pain or shortness of breath.
Objective
Labs:
10/02/23 03:47
10/02/23 03:47
Labs
Hgb 15.0 g/dL (12.0-16.0) 10/02/23 03:47
Hct 46.3 % (37.0-47.0) 10/02/23 03:47
Plt Count 72 10^3/uL (130-400) L 10/02/23 03:47
PT 13.0 Sec (11.4-14.6) 10/01/23 14:43
INR 1.00 10/01/23 14:43
Sodium 137 mmol/L (135-145) 10/02/23 03:47
Potassium 4.6 mmol/L (3.5-5.1) 10/02/23 03:47
BUN 38 mg/dl (7-17) H 10/02/23 03:47
Creatinine 1.3 mg/dL (0.6-1.0) H 10/02/23 03:47
Glucose 119 mg/dl (70-99) H 10/02/23 03:47
Troponins
10/01/23 10/01/23 10/02/23
14:43 15:24 00:24
Troponin I 0.046 H* Cancelled 0.055 H*
Vital Signs and I&O:
Vital Signs
Temp Pulse Resp BP Pulse Ox
98.1 F 98 25 147/107 99
10/02/23 07:55 10/02/23 10:30 10/02/23 10:30 10/02/23 10:00 10/02/23 10:30
Vital Signs
Temp Pulse Resp BP Pulse Ox
98.1 F 98 25 147/107 99
10/02/23 07:55 10/02/23 10:30 10/02/23 10:30 10/02/23 10:00 10/02/23 10:30
Intake & Output
09/30/23 10/01/23 10/02/23 10/03/23
06:59 06:59 06:59 06:59
Intake Total 420 / 420 810 / 810 540 / 540
Output Total 300 / 300
Balance 420 / 420 810 / 810 240 / 240
Physical Exam
Physical Exam
General: No acute distress, lethargic
Neck: Negative JVD
Heart: Regular, Negative S3 positive S1/S2, Negative S4, No murmur
Lungs: CTA b/l, negative wheezes/rales/rhonchi
Abd: Positive BS, NT/ND, neg rebound/rigidity/guarding
Ext: Negative cyanosis/clubbing/edema
Neuro: nonfocal
--- NOTE | 2023-10-02 13:28 | PTOTSP ---
ST Dysphagia Evaluation
Moderate oral dysphagia; increased work of breathing noted with higher-level solids
Pt received awake/alert b/l hand mitts and nasal cannula in place. Trying to take off her mitts by biting them; she was able to be redirected to task. Per RN report was unable to engage with assistant office manager however was able to intermittently respond in
simple Salvadorean. Respirations appeared a little labored; SPO2 remained >98% throughout eval. HOB raised upright for PO trials of puree, minced/moist, soft/bite-size solids and thin liquids. Demo extended mastication, increased work of breathing with
higher-level solids and min oral residuals post swallows. Thin liquids by straw sip swallow appears prompt. No overt s/sx of aspiration observed during this eval
Recommend
1. Puree (L4) and Thin liquids
2. Aspiration precautions and feeding assist 1:1 due to current level of confusion
3. Small bites and slow rate
4. Crush meds into apple sauce
5. HEAD OF HUMAN RESOURCES following
[2023-10-02] MEDS: COREG 12.5 MG PO (21:27)
[2023-10-02] MEDS: SEROQUEL 50 MG PO (21:28)
[2023-10-02] MEDS: MELATONIN 5 MG PO (21:28)
[2023-10-03] VITALS (13 sets, daily range): BP systolic 91–127; BP diastolic 59–93; BMI 29.5
[2023-10-03] MEDS: ZOSYN 50 IV ×5 (00:57→23:36)
[2023-10-03] MEDS: HEPARIN 5000 UNITS SC ×4 (00:58→23:37)
[2023-10-03] MEDS: SYNTHROID 100 MCG PO (06:38)
[2023-10-03 07:00] LABS: % Basophils 0.2 % (0-2); % Immature Granulocytes 0.6 % (0-0.5); % Lymphocytes 17.3 % (20.5-51.1); % Neutrophils 75.9 % (42.2-75.2); Absolute Lymphocytes 0.8 10^3/uL (1.2-3.4); Absolute Monocytes 0.3 10^3/uL (0.1-0.6); Absolute Neutrophils 3.7 10^3/uL (1.4-6.5); Hematocrit 46.9 % (37.0-47.0); Hemoglobin 15.2 g/dL (12.0-16.0); Mean Corp Hgb Conc. 32.4 g/dL (33.0-37.0); Mean Corpuscular Hgb 31.5 pg (27.0-31.0); Mean Corpuscular Volume 97.1 fL (81.0-99.0); Mean Platelet Volume 10.1 fL (7.4-10.4); Nucleated Red Blood Cells % 0 %; Platelet Count 71 10^3/uL (130-400); Red Blood Cell Count 4.83 10^6/uL (4.20-5.40); Red Cell Dist. Width 14.6 % (11.5-14.5); White Blood Cell Count 4.9 10^3/uL (4.8-10.8)
--- NOTE | 2023-10-03 08:15 | W.PN.HOSP.TC ---
Today's Communication/Plan
-
Continue IV remdesivir and dexamethasone. Continue IV Zosyn.
Assessment / Plan
Assessment / Plan
Physical exam:
General: Acutely ill
HEENT: Normocephalic, Atraumatic and Moist Mucous Membranes
Respiratory: Bilateral coarse crackles; Negative Wheezes or Rhonchi
Cardiac: Regular Rhythm and S1/S2, systolic murmur
GI: Soft, Nontender and Nondistended. She has some bruises from heparin shots.
Musculoskeletal: Bilateral edema, erythema and tenderness at left foot dorsal aspect.
Neuro: Awake, Alert and Disoriented, remains encephalopathic but improved today as reported by family. Moves spontaneously all 4 extremities.
Psych: Calm
A/P:
Acute systolic congestive heart Failure:
Suspicion for etiology of heart failure related to use of Rituxan (not very common, but case reports reviewed related to cardiotoxicity).
IV diuretics, Lasix IV 40 mg once daily--> might be able to switch to oral over the next 24 to 48 hours.
Monitor strict I/O
Monitor daily weight
Monitor renal function and electrolytes
Reviewed latest echocardiogram on our system and shows EF 20 to 25% which is new from prior echocardiogram and moderate to severe MR.
Continue guideline-directed medical therapy for heart failure (GDMT)--> on Coreg 6.25 mg twice a day, Cozaar 25 mg daily, checking cost of Jardiance and Entresto per cardiology.
Follow up clinical response
Transferred to IMU on 09/30 due to resp deterioration
Ischemic w/u on hold until clinical status improves
Discussed with RN
Discussed with son today on 10/02 and updated him about plan of care. Son tells me that she is able to recognize him today ans she seems better to him today.
Acute hypoxic respiratory failure:
-Multifactorial, heart failure related, COVID-19 (newly diagnosed), and aspiration pneumonia.
-Started remdesivir--> D#2/5
-Start IV dexamethasone-->D#2/10
-Supplemental oxygen
-Continue IV Zosyn D#2/-7
-Speech therapy swallowing eval
COVID-19:
-Respiratory isolation
-Remdesivir for 5 days
-Monitor renal function and LFTs (LFTs and renal function elevated but not prohibitive and they have remained relatively stable)
-Dexamethasone for 10 days
-CRP trending down from 36 to 26 today
-Follow-up inflammatory markers
Aspiration pneumonia:
-continue antibiotics
Dysphagia:
-Speech eval--> advanced to IDDS-4 with aspiration precautions.
Toxic metabolic encephalopathy:
-Related to infection most likely with underlying dementia
-CT of the head no acute intracranial abnormalities
-Continue to monitor mental status
Left Foot Cellulitis
-Hold oral antibiotic since giving IV as above
-Consulted Wound Care--> appreciated input and continue local care
Thrombocytopenia
-Monitor daily
-No signs of bleeding
Hyponatremia
-Improved, NA 140 today
-Continue to monitor
CKD Stage III
-Monitor creatinine closely while on diuretics
-Creatinine 1.3 today which is stable and actually improved from last few days.
ANCA Positive Vasculitis
-Hold prednisone while on IV dexa
-Repeated ESR, CRP C3 and C4--> no evidence of flare of vasculitis at the moment given ESR normal, CRP only minimally elevated and less than previously upon admission, and C3-C4 normal.
Dementia, probably Alzheimer's
Insomnia
-Continue melatonin and Seroquel
Hypothyroidism
-Continue levothyroxine
DVT proph: SC Heparin
Code Status: DO NOT INTUBATE but yes to resuscitation including chest compressions or shock.
Anticipated Discharge: > 48 hours
Subjective/Interval History
-
Date of Service: October 03, 2023
Patient remains disoriented. Blood pressure dropped after IV Lasix but has remained relatively stable since. She is on 2 L of oxygen oxygenating well. Afebrile.
Objective Data
-
Labs:
Laboratory Results
10/03/23 10/03/23
06:04 07:21
WBC 4.9
Hgb 15.2
Hct 46.9
Plt Count 71 L
Sodium Cancelled Pending
Potassium Cancelled Pending
Chloride Cancelled Pending
Carbon Dioxide Cancelled Pending
BUN Cancelled Pending
Creatinine Cancelled Pending
Glucose Cancelled Pending
Calcium Cancelled Pending
Total Bilirubin Cancelled Pending
AST Cancelled Pending
ALT Cancelled Pending
Alkaline Phosphatase Cancelled Pending
Vital Signs:
Vital Signs
Temp Pulse Resp BP Pulse Ox
96.2 F L 65 15 102/58 99
10/03/23 04:03 10/02/23 23:00 10/02/23 23:00 10/02/23 22:00 10/02/23 23:00
I&O
10/02/23 10/03/23 10/04/23
06:59 06:59 06:59
Intake Total 540 / 540 50 / 50
Output Total 300 / 300
Balance 240 / 240 50 / 50
--- NOTE | 2023-10-03 08:37 | W.PN.CARDCBS ---
Today's Communication / Plan
-
Cont IV diuresis
Trend trop
Pulm toilet
Impression / Plan
-
.
PCP: Dr. Yordy Ibarra
Cardiology: None prior to admission
Impression:
COVID and aspiration PNA
Acute HFrEF
LLE cellulitis
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
Moderate to severe MR by echo 09/26/23
Severe TR by echo 09/26/23
Recent series of admissions for acute HF, generalized weakness and eventually diagnosed with ANCA vasculitis 10/17/22 until 12/01/22
h/o ANCA vasculitis
CKD 3
Dementia
Hypothyroidism
h/o GBS and dysautonomia symptoms that resolved with ANCA vasculitis treatment
h/o diastolic dysfunction
Echo 10/18/22:�EF 60-65%, mild to mod aortic regurgitation, mild TR
Echo 09/26/23: EF 20-25%, moderate to severe MR, severe TR, mild to moderate aortic insufficiency
Plan:
New cardiomyopathy, unknown etiology with a EF 20-25% by echocardiogram 09/26/2023 with moderate to severe mitral regurgitation and severe tricuspid regurgitation as well as mild to moderate aortic insufficiency
General information: Records received patient's portal from [place] from March 19, 2023 including an echocardiogram which noted LV systolic function to be normal estimated 65% with no regional wall motion abnormalities and grade 1 diastolic
dysfunction. She had elevated left atrial filling pressures. Right ventricle was mildly enlarged with mildly reduced RV systolic function. She had mild mitral and tricuspid regurgitation. Estimated right ventricular systolic pressures were
severely elevated at 60 mmHg assuming a right atrial pressure of 15 mmHg. patient portal discharge summary from her admission in [place] March 18 - April 08, 2023 for sepsis and acute respiratory failure requiring intubation.Patient presented
with shortness of breath requiring intubation with CT of the chest noting pneumonia and diffuse interstitial lung disease. She was previously known to have ANCA vasculitis diagnosed in September during a hospitalization in [place] on chronic
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 She was extubated March 22 and then needed to be reintubated March 26. She was eventually reextubated March 28 and required 2 L nasal cannula at time of discharge. She was also treated for heart
failure with preserved ejection fraction. She was discharged on 40 mg of Lasix every other day. She did have elevated troponins which they felt were the demand ischemia.
-Cardiomyopathy, etiology unclear.
-There was concern raised about rare rituximab reaction however she has not had an infusion since November 2022 with normal ejection fraction in February 2023 per [place] [facility] records
-Mildly abnormal cardiac troponin 0.055, would trend until peaks
-In discussions with family regarding evaluation of newly diagnosed cardiomyopathy including ischemic evaluation, family has been historically more conservative given her advanced cognitive impairment/dementia. Patient remains a poor candidate for
invasive procedures.
-Continue aspirin
-Continue Coreg. Titrate as able.
-Continue losartan 25 mg daily. Continue spironolactone 12.5 mg daily
-In discussion with case management, the patient does not have prescription coverage [pharmacy told her that premiums were not paid] with cost of medication such as Jardiance, Farxiga and Entresto all over $600 each. Patient's family states that
they have independence personal choice and case management will look into cost again on Monday.
-Continue Lasix IV 40 mg daily.
-Renal function overall stable with creatinine 1.3 on October 01 and 2023. Monitor creatinine. 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
Subjective
Date of Service: October 03, 2023
Patient seen and examined. No chest pain
Objective
Labs:
10/03/23 06:04
Labs
Hgb 15.2 g/dL (12.0-16.0) 10/03/23 06:04
Hct 46.9 % (37.0-47.0) 10/03/23 06:04
Plt Count 71 10^3/uL (130-400) L 10/03/23 06:04
PT 13.0 Sec (11.4-14.6) 10/01/23 14:43
INR 1.00 10/01/23 14:43
Sodium Cancelled 10/03/23 06:04
Potassium Cancelled 10/03/23 06:04
BUN Cancelled 10/03/23 06:04
Creatinine Cancelled 10/03/23 06:04
Glucose Cancelled 10/03/23 06:04
Troponins
10/01/23 10/01/23 10/02/23
14:43 15:24 00:24
Troponin I 0.046 H* Cancelled 0.055 H*
Vital Signs and I&O:
Vital Signs
Temp Pulse Resp BP Pulse Ox
97.6 F 65 15 102/58 100
10/03/23 08:21 10/02/23 23:00 10/02/23 23:00 10/02/23 22:00 10/03/23 08:22
Vital Signs
Temp Pulse Resp BP Pulse Ox
97.6 F 65 15 102/58 100
10/03/23 08:21 10/02/23 23:00 10/02/23 23:00 10/02/23 22:00 10/03/23 08:22
Intake & Output
10/01/23 10/02/23 10/03/23 10/04/23
06:59 06:59 06:59 06:59
Intake Total 810 / 810 540 / 540 50 / 50
Output Total 300 / 300
Balance 810 / 810 240 / 240 50 / 50
Physical Exam
Physical Exam
General: No acute distress, lethargic
Neck: Negative JVD
Heart: Regular, Negative S3 positive S1/S2, Negative S4, No murmur
Lungs: CTA b/l, negative wheezes/rales/rhonchi
Abd: Positive BS, NT/ND, neg rebound/rigidity/guarding
Ext: Negative cyanosis/clubbing/edema
Neuro: nonfocal
[2023-10-03] MEDS: ALDACTONE 12.5 MG PO (09:21)
[2023-10-03] MEDS: COREG 12.5 MG PO ×2 (09:21→21:52)
[2023-10-03] MEDS: COZAAR 25 MG PO (09:21)
[2023-10-03] MEDS: DECADRON 6 MG IV (09:22)
[2023-10-03] MEDS: LASIX 40 MG IV (09:32)
[2023-10-03 10:37] LABS: Potassium 4.8 mmol/L (3.5-5.1)
[2023-10-03 10:38] LABS: ALT (SGPT) 35 U/L (0-35); AST (SGOT) 45 U/L (14-36); Albumin 3.1 g/dl (3.5-5.0); Alkaline Phosphatase 129 U/L (38-126); Blood Urea Nitrogen 50 mg/dl (7-17); Calcium 8.8 mg/dl (8.4-10.2); Carbon Dioxide 36 mmol/L (22-30); Chloride 96 mmol/L (98-107); Estimated Creatinine Clearance 30 ml/min; Glucose 145 mg/dl (70-99); Sodium 140 mmol/L (135-145); Total Bilirubin 1.6 mg/dl (0.2-1.3); Total Protein 5.4 g/dl (6.3-8.2); eGFR 42.35
--- NOTE | 2023-10-03 10:44 | PTCARENOTE ---
Patient is awake and alert at breakfast time. Responding in kiswahili to simple questions, saying she is in a hospital and her name. Patient was fed breakfast , ate majority of meal. Patient is very weak, unable to move herself in bed. Became very
dyspneic after being repositioned by RN in bed. Not tolerating activity at this time. Patient has large hematomas on abdomen, Dr. Cruz notified. Discussed other option of blood clot prevention. Nasal cannula at 2 liters infusing, pulse ox 98%.
Patient has strong, nonproductive cough. Mitts in use because patient is pulling at IV site and oxygen this morning.
[2023-10-03] MEDS: VEKLURY 250 MG IV (13:18)
[2023-10-03] MEDS: NSS 30 IV (13:19)
[2023-10-03] MEDS: MELATONIN 5 MG PO (21:52)
[2023-10-03] MEDS: SEROQUEL 50 MG PO (21:52)
[2023-10-04] VITALS (14 sets, daily range): BP systolic 102–134; BP diastolic 67–100; PULSE 65; O2SAT 93–94; BMI 29.9
[2023-10-04] MEDS: ZOSYN 50 IV ×3 (05:39→16:54)
[2023-10-04] MEDS: SYNTHROID 100 MCG PO (05:48)
[2023-10-04 06:37] LABS: % Basophils 0.2 % (0-2); % Immature Granulocytes 0.5 % (0-0.5); % Lymphocytes 10.9 % (20.5-51.1); % Monocytes 4.1 % (1.7-9.3); % Neutrophils 84.3 % (42.2-75.2); Absolute Lymphocytes 0.6 10^3/uL (1.2-3.4); Absolute Monocytes 0.2 10^3/uL (0.1-0.6); Absolute Neutrophils 4.7 10^3/uL (1.4-6.5); Hematocrit 43.9 % (37.0-47.0); Hemoglobin 14.1 g/dL (12.0-16.0); Mean Corp Hgb Conc. 32.1 g/dL (33.0-37.0); Mean Corpuscular Hgb 31.5 pg (27.0-31.0); Mean Platelet Volume 11.6 fL (7.4-10.4); Nucleated Red Blood Cells % 0 %; Platelet Count 66 10^3/uL (130-400); Red Blood Cell Count 4.48 10^6/uL (4.20-5.40); Red Cell Dist. Width 14.6 % (11.5-14.5); White Blood Cell Count 5.6 10^3/uL (4.8-10.8)
[2023-10-04 06:39] LABS: Troponin I 0.052 ng/ml
[2023-10-04 06:41] LABS: ALT (SGPT) 35 U/L (0-35); AST (SGOT) 43 U/L (14-36); Alkaline Phosphatase 108 U/L (38-126); Blood Urea Nitrogen 49 mg/dl (7-17); Calcium 8.3 mg/dl (8.4-10.2); Carbon Dioxide 34 mmol/L (22-30); Chloride 101 mmol/L (98-107); Estimated Creatinine Clearance 30 ml/min; Glucose 107 mg/dl (70-99); Potassium 4.4 mmol/L (3.5-5.1); Sodium 141 mmol/L (135-145); Total Bilirubin 1.5 mg/dl (0.2-1.3); Total Protein 5.2 g/dl (6.3-8.2); eGFR 42.35
[2023-10-04] MEDS: ALDACTONE 12.5 MG PO (09:33)
[2023-10-04] MEDS: COREG 12.5 MG PO ×2 (09:33→19:56)
[2023-10-04] MEDS: LASIX 40 MG IV (09:33)
[2023-10-04] MEDS: COZAAR 25 MG PO (09:33)
[2023-10-04] MEDS: DECADRON 6 MG IV (09:34)
[2023-10-04] MEDS: HEPARIN 5000 UNITS SC (09:34)
--- NOTE | 2023-10-04 10:49 | WOUNDNOTE ---
R MEDIAL FOOT CALLUS
--- NOTE | 2023-10-04 10:49 | WOUNDNOTE ---
R 4TH TOE DORSAL
--- NOTE | 2023-10-04 10:52 | WOUNDNOTE ---
JOELLEN RN NOTE: Followed up today with assist from nurse Reyes who removed L foot dressing. Reviewed hospitalist note, patient with ANCA positive vasculitis. Nurse reports sacrum and buttocks are intact she just checked. L dorsal foot blister improved
and swelling resolved. Blister open 2.5x2x0.1, easily bleeds. Remainder of blister flat dry and intact. Applied adaptic and silicone foam, nurse to apply lino wrap. R 4th dorsal toe remains stable, dry and intact, silicone foam in use. Asked nurse to
apply foam adhesives to heels and place pillow under calves. Gave nurse foams and she will apply. Will update changes in wound care and follow as needed.
--- NOTE | 2023-10-04 11:51 | PTCARENOTE ---
11:50 -son Flora at bedside to visit, stated that he checked prescription coverage for the patient and she does have it. Will pass onto CM.
--- NOTE | 2023-10-04 12:18 | W.PN.CARDCBS ---
Today's Communication / Plan
-
Continue diuresis
Guideline directed therapy as tolerates.
Treatment of COVID per primary service
Impression / Plan
-
.
PCP: Dr. Yordy Ibarra
Cardiology: None prior to admission
Impression:
COVID and aspiration PNA
Acute HFrEF
LLE cellulitis
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
Moderate to severe MR by echo 09/26/23
Severe TR by echo 09/26/23
Recent series of admissions for acute HF, generalized weakness and eventually diagnosed with ANCA vasculitis 10/17/22 until 12/01/22
h/o ANCA vasculitis
CKD 3
Dementia
Hypothyroidism
h/o GBS and dysautonomia symptoms that resolved with ANCA vasculitis treatment
h/o diastolic dysfunction
Echo 10/18/22:�EF 60-65%, mild to mod aortic regurgitation, mild TR
Echo 09/26/23: EF 20-25%, moderate to severe MR, severe TR, mild to moderate aortic insufficiency
Plan:
Communication barrier given language and dementia. Currently stable with decreased oxygen requirements
New cardiomyopathy, unknown etiology with a EF 20-25% by echocardiogram 09/26/2023 with moderate to severe mitral regurgitation and severe tricuspid regurgitation as well as mild to moderate aortic insufficiency
General information: Records received patient's portal from [place] from March 19, 2023 including an echocardiogram which noted LV systolic function to be normal estimated 65% with no regional wall motion abnormalities and grade 1 diastolic
dysfunction. She had elevated left atrial filling pressures. Right ventricle was mildly enlarged with mildly reduced RV systolic function. She had mild mitral and tricuspid regurgitation. Estimated right ventricular systolic pressures were
severely elevated at 60 mmHg assuming a right atrial pressure of 15 mmHg. patient portal discharge summary from her admission in [place] March 18 - April 08, 2023 for sepsis and acute respiratory failure requiring intubation.Patient presented
with shortness of breath requiring intubation with CT of the chest noting pneumonia and diffuse interstitial lung disease. She was previously known to have ANCA vasculitis diagnosed in September during a hospitalization in [place] on chronic
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 She was extubated March 22 and then needed to be reintubated March 26. She was eventually reextubated March 28 and required 2 L nasal cannula at time of discharge. She was also treated for heart
failure with preserved ejection fraction. She was discharged on 40 mg of Lasix every other day. She did have elevated troponins which they felt were the demand ischemia.
-Cardiomyopathy, etiology unclear.
-There was concern raised about rare rituximab reaction however she has not had an infusion since November 2022 with normal ejection fraction in February 2023 per [facility] records
-Peak cardiac troponin 0.055, likely nonischemic troponin elevation. Continue to follow clinically.
-During this admission in discussions with family regarding evaluation of newly diagnosed cardiomyopathy including ischemic evaluation, family has been historically more conservative given her advanced cognitive impairment/dementia. Patient remains
a poor candidate for invasive procedures.
-Continue aspirin
-Continue Coreg. Titrate as able.
-Continue losartan 25 mg daily. Continue spironolactone 12.5 mg daily
-In discussion with case management, the patient does not have prescription coverage [pharmacy told her that premiums were not paid] with cost of medication such as Jardiance, Farxiga and Entresto all over $600 each. Patient's family states that
they have independence personal choice and case management will look into cost again on Monday. Will continue to evaluate.
-Continue Lasix IV 40 mg daily. Volume status is improving. Oxygenation improving.
-Renal function overall stable with creatinine 1.3. Monitor creatinine. 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
Continue treatment of COVID per primary service
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
Subjective
Date of Service: October 04, 2023
No complaints but language barrier and dementia
Objective
Labs:
10/04/23 04:58
10/04/23 04:58
Labs
Hgb 14.1 g/dL (12.0-16.0) 10/04/23 04:58
Hct 43.9 % (37.0-47.0) 10/04/23 04:58
Plt Count 66 10^3/uL (130-400) L 10/04/23 04:58
PT 13.0 Sec (11.4-14.6) 10/01/23 14:43
INR 1.00 10/01/23 14:43
Sodium 141 mmol/L (135-145) 10/04/23 04:58
Potassium 4.4 mmol/L (3.5-5.1) 10/04/23 04:58
BUN 49 mg/dl (7-17) H 10/04/23 04:58
Creatinine 1.3 mg/dL (0.6-1.0) H 10/04/23 04:58
Glucose 107 mg/dl (70-99) H 10/04/23 04:58
Troponins
10/01/23 10/01/23 10/02/23
14:43 15:24 00:24
Troponin I 0.046 H* Cancelled 0.055 H*
10/04/23
04:58
Troponin I 0.052 H*
Vital Signs and I&O:
Vital Signs
Temp Pulse Resp BP Pulse Ox
96.8 F L 87 16 117/81 92
10/04/23 10:31 10/04/23 10:01 10/04/23 10:01 10/04/23 10:01 10/04/23 10:30
Vital Signs
Temp Pulse Resp BP Pulse Ox
96.8 F L 87 16 117/81 92
10/04/23 10:31 10/04/23 10:01 10/04/23 10:01 10/04/23 10:01 10/04/23 10:30
Intake & Output
10/02/23 10/03/23 10/04/23 10/05/23
06:59 06:59 06:59 06:59
Intake Total 540 / 540 50 / 50 790 / 790 170 / 170
Output Total 300 / 300
Balance 240 / 240 50 / 50 790 / 790 170 / 170
Physical Exam
Physical Exam
General: Frail elderly woman
Heart: Irregularly irregular with distant heart sounds non displaced PMI, RRR, no murmurs, No S3, S4, no rubs.
Lungs: Coarse breath sounds
Extremities: No clubbing, cyanosis or edema bilaterally.
--- NOTE | 2023-10-04 12:24 | W.PN.HOSP.TC ---
Today's Communication/Plan
-
Tx to tele
IV lasix
cont abx
IV steroids
prognosis poor
Assessment / Plan
Assessment / Plan
Physical exam:
General: Acutely ill
HEENT: Normocephalic, Atraumatic and Moist Mucous Membranes
Respiratory: Bilateral coarse crackles; Negative Wheezes or Rhonchi, on oxygen 2L NC
Cardiac: Regular Rhythm and S1/S2, systolic murmur
GI: Soft, Nontender and Nondistended. She has some bruises from heparin shots.
Musculoskeletal: Bilateral edema, erythema and tenderness at left foot dorsal aspect.
Neuro: Awake, and Disoriented, remains confused. Moves spontaneously all 4 extremities.
Psych: Calm
A/P:
Acute systolic congestive heart Failure:
Suspicion for etiology of heart failure related to use of Rituxan (not very common, but case reports reviewed related to cardiotoxicity).
IV diuretics, Lasix IV 40 mg once daily--> might be able to switch to oral over the next 24 to 48 hours.
Monitor strict I/O
Monitor daily weight
Monitor renal function and electrolytes
Reviewed latest echocardiogram on our system and shows EF 20 to 25% which is new from prior echocardiogram and moderate to severe MR.
Continue guideline-directed medical therapy for heart failure (GDMT)--> on Coreg 6.25 mg twice a day, Cozaar 25 mg daily, checking cost of Jardiance and Entresto per cardiology.
Follow up clinical response
Transferred to IMU on 3/ due to resp deterioration
Ischemic w/u on hold until clinical status improves
Acute hypoxic respiratory failure:
-Multifactorial, heart failure related, COVID-19 (newly diagnosed), and aspiration pneumonia.
-Started remdesivir
-Start IV dexamethasone- 10d course
-Supplemental oxygen
-Continue IV Zosyn-plan for 5-7d course
-Speech therapy swallowing eval
COVID-19:
-Respiratory isolation
-Remdesivir for 5 days
-Monitor renal function and LFTs (LFTs and renal function elevated but not prohibitive and they have remained relatively stable)
-Dexamethasone for 10 days
-CRP trending down from 36 to 26
-Follow-up inflammatory markers
Aspiration pneumonia:
-continue antibiotics
Dysphagia:
-Speech eval--> advanced to IDDS-4 with aspiration precautions.
Toxic metabolic encephalopathy:
-Related to infection most likely with worsening of underlying dementia
-CT of the head no acute intracranial abnormalities
-Continue to monitor mental status
Left Foot Cellulitis
-Hold oral antibiotic since giving IV as above
-Consulted Wound Care--> appreciated input and continue local care
Thrombocytopenia
-Monitor daily
-No signs of bleeding
Hyponatremia
-Improved, NA 141 today
-Continue to monitor
CKD Stage III
-Monitor creatinine closely while on diuretics
-Creatinine 1.3 today which is stable and actually improved from last few days.
ANCA Positive Vasculitis
-Hold prednisone while on IV dexa
-Repeated ESR, CRP C3 and C4--> no evidence of flare of vasculitis at the moment given ESR normal, CRP only minimally elevated and less than previously upon admission, and C3-C4 normal.
Dementia, probably Alzheimer's
Insomnia
-Continue melatonin and Seroquel
Hypothyroidism
-Continue levothyroxine
DVT proph: SC Heparin
Code Status: DO NOT INTUBATE but yes to resuscitation including chest compressions or shock.
Anticipated Discharge: > 48 hours
Subjective/Interval History
-
Date of Service: October 04, 2023
on 2L oxygen
remains confused
Objective Data
-
Labs:
Laboratory Results
10/04/23
04:58
WBC 5.6
Hgb 14.1
Hct 43.9
Plt Count 66 L
Sodium 141
Potassium 4.4
Chloride 101
Carbon Dioxide 34 H
BUN 49 H
Creatinine 1.3 H
Glucose 107 H
Calcium 8.3 L
Total Bilirubin 1.5 H
AST 43 H
ALT 35
Alkaline Phosphatase 108
Vital Signs:
Vital Signs
Temp Pulse Resp BP Pulse Ox
96.8 F L 87 16 117/81 92
10/04/23 10:31 10/04/23 10:01 10/04/23 10:01 10/04/23 10:01 10/04/23 10:30
I&O
10/03/23 10/04/23 10/05/23
06:59 06:59 06:59
Intake Total 50 / 50 790 / 790 170 / 170
Balance 50 / 50 790 / 790 170 / 170
Data Reviewed
-
Total Time Spent with Patient (in minutes): 55
[2023-10-04] MEDS: NSS 30 IV (13:46)
[2023-10-04] MEDS: VEKLURY 250 MG IV (13:46)
--- NOTE | 2023-10-04 14:28 | PTCARENOTE ---
Tele orders rec'd at this time. Pt remains pleasantly confused, cooperative. Updated provided to son at bedside. Plan discussed with Drs. Pulido and Subha, speech therapist in room to assess pt. Will remain on pureed diet. Mitts remain in place
for safety. Continuing to closely monitor. Medsitter in place.
--- NOTE | 2023-10-04 16:04 | PTCARENOTE ---
Pt was incontinent of large loose BM, pure wick removed at this time. Per conversation with attending Dr. Pulido, will dc SQ heparin due to abdominal ecchymosis/hematomas and oozing.
--- NOTE | 2023-10-04 18:51 | TRANSFER ---
pt arrives at 1842 from IMU with PCT x 2 on 2L NC, B/L mitts requiring puller through onto hospital bed. pt repositioned. pillows placed under heels. VSS. pt is AAOx1, calm and cooperative. bed low, rails up x3, call hwang on lap with TV on.
respiratory precautions and contact precaution in place. video monitor active. care plan continues to be followed.
[2023-10-04] MEDS: MELATONIN 5 MG PO (21:39)
[2023-10-04] MEDS: SEROQUEL 50 MG PO (21:39)
[2023-10-05] VITALS (7 sets, daily range): BP systolic 126–142; BP diastolic 75–94; BMI 29.4
[2023-10-05] MEDS: ZOSYN 50 IV ×5 (00:30→23:29)
[2023-10-05 06:12] LABS: % Basophils 0.2 % (0-2); % Immature Granulocytes 0.9 % (0-0.5); % Lymphocytes 10.7 % (20.5-51.1); % Monocytes 3.9 % (1.7-9.3); % Neutrophils 84.3 % (42.2-75.2); Absolute Immature Granulocytes 0.1 10^3/uL (0-0.05); Absolute Lymphocytes 0.6 10^3/uL (1.2-3.4); Absolute Monocytes 0.2 10^3/uL (0.1-0.6); Absolute Neutrophils 4.8 10^3/uL (1.4-6.5); Hematocrit 40.7 % (37.0-47.0); Hemoglobin 12.7 g/dL (12.0-16.0); Mean Corp Hgb Conc. 31.2 g/dL (33.0-37.0); Mean Corpuscular Hgb 31.4 pg (27.0-31.0); Mean Corpuscular Volume 100.5 fL (81.0-99.0); Mean Platelet Volume 12.1 fL (7.4-10.4); Nucleated Red Blood Cells % 0 %; Platelet Count 60 10^3/uL (130-400); Red Blood Cell Count 4.05 10^6/uL (4.20-5.40); Red Cell Dist. Width 14.6 % (11.5-14.5); White Blood Cell Count 5.7 10^3/uL (4.8-10.8)
[2023-10-05] MEDS: SYNTHROID 100 MCG PO (06:16)
[2023-10-05 06:41] LABS: Blood Urea Nitrogen 54 mg/dl (7-17); Calcium 8.6 mg/dl (8.4-10.2); Chloride 94 mmol/L (98-107); Estimated Creatinine Clearance 28 ml/min; Glucose 123 mg/dl (70-99); Potassium 3.3 mmol/L (3.5-5.1); Sodium 144 mmol/L (135-145); eGFR 38.75
[2023-10-05 06:57] LABS: Carbon Dioxide 38 mmol/L (22-30)
[2023-10-05] MEDS: COZAAR 25 MG PO (09:19)
[2023-10-05] MEDS: ALDACTONE 12.5 MG PO (09:19)
[2023-10-05] MEDS: DECADRON 6 MG IV (09:20)
[2023-10-05] MEDS: LASIX 40 MG IV (09:20)
[2023-10-05] MEDS: KCL ELIXIR 40 MEQ PO (09:20)
[2023-10-05] MEDS: COREG 12.5 MG PO ×2 (09:20→21:15)
--- NOTE | 2023-10-05 10:27 | W.PN.HOSP.TC ---
Addendum entered and electronically signed by Ralph Pulido MD 10/05/23 13:57:
updated son Flora Enriquez over the phone in details.
Original Note:
Today's Communication/Plan
-
Cards recs
wean o2
IV steroids
abx
pt/ot
Assessment / Plan
Assessment / Plan
Physical exam:
General: Acutely ill
HEENT: Normocephalic, Atraumatic and Moist Mucous Membranes
Respiratory: Bilateral coarse crackles; Negative Wheezes or Rhonchi, on oxygen 2L NC
Cardiac: Regular Rhythm and S1/S2, systolic murmur
GI: Soft, Nontender and Nondistended. She has some bruises from heparin shots.
Musculoskeletal: Bilateral edema, erythema and tenderness at left foot dorsal aspect.
Neuro: Awake, and Disoriented, remains confused. Moves spontaneously all 4 extremities.
Psych: Calm
A/P:
Acute systolic congestive heart Failure:
Suspicion for etiology of heart failure related to use of Rituxan (not very common but case reports reviewed related to cardiotoxicity).
IV diuretics, Lasix IV 40 mg once daily
Monitor strict I/O
Monitor daily weight-losing weight
Monitor renal function and electrolytes. BUN slowly uptrending. Monitor for contraction alkalosis.
Reviewed latest echocardiogram on our system and shows EF 20 to 25% which is new from prior echocardiogram and moderate to severe MR.
Continue guideline-directed medical therapy for heart failure (GDMT)--> on Coreg 6.25 mg twice a day, Cozaar 25 mg daily, checking cost of Jardiance and Entresto per cardiology.
Follow up clinical response
Transferred to IMU on 09/30 due to resp deterioration
Ischemic w/u on hold until clinical status improves
Acute hypoxic respiratory failure:
-Multifactorial, heart failure related, COVID-19 (newly diagnosed), and aspiration pneumonia.
-Started remdesivir
-Start IV dexamethasone- 10d course
-Supplemental oxygen-on 2L-Wean as tolerated
-Continue IV Zosyn-plan for 5-7d course
-Speech therapy swallowing eval
COVID-19:
-Respiratory isolation
-Remdesivir for 5 days
-Monitor renal function and LFTs (LFTs and renal function elevated but not prohibitive and they have remained relatively stable)
-Dexamethasone for 10 days
-CRP trending down from 36 to 26
-Follow-up inflammatory markers
Aspiration pneumonia:
-continue antibiotics
Dysphagia:
-Speech eval--> advanced to IDDS-4 with aspiration precautions.
Toxic metabolic encephalopathy:
-Related to infection most likely with worsening of underlying dementia
-CT of the head no acute intracranial abnormalities
-Continue to monitor mental status
Left Foot Cellulitis
-Hold oral antibiotic since giving IV as above
-Consulted Wound Care--> appreciated input and continue local care
Thrombocytopenia
-Monitor daily
-No signs of bleeding
Hyponatremia
-resolved.
-Continue to monitor
CKD Stage III
-Monitor creatinine closely while on diuretics
ANCA Positive Vasculitis
-Hold prednisone while on IV dexa
-Repeated ESR, CRP C3 and C4--> no evidence of flare of vasculitis at the moment given ESR normal, CRP only minimally elevated and less than previously upon admission, and C3-C4 normal.
Dementia, probably Alzheimer's
Insomnia
-Continue melatonin and Seroquel
Hypothyroidism
-Continue levothyroxine
DVT proph: SC Heparin
Code Status: DO NOT INTUBATE but yes to resuscitation including chest compressions or shock.
Anticipated Discharge: > 48 hours
Subjective/Interval History
-
Date of Service: October 05, 2023
remains on oxygen 2L
Confused
More awake
Objective Data
-
Labs:
Laboratory Results
10/05/23
04:43
WBC 5.7
Hgb 12.7
Hct 40.7
Plt Count 60 L
Sodium 144
Potassium 3.3 L
Chloride 94 L
Carbon Dioxide 38 H
BUN 54 H
Creatinine 1.4 H
Glucose 123 H
Calcium 8.6
Vital Signs:
Vital Signs
Temp Pulse Resp BP Pulse Ox
97.1 F 81 18 138/92 97
10/05/23 07:59 10/05/23 09:20 10/05/23 07:59 10/05/23 09:20 10/05/23 07:59
I&O
10/04/23 10/05/23 10/06/23
06:59 06:59 06:59
Intake Total 790 / 790 710 / 710
Balance 790 / 790 710 / 710
Data Reviewed
-
Total Time Spent with Patient (in minutes): 55
[2023-10-05] MEDS: VEKLURY 250 MG IV (12:57)
[2023-10-05] MEDS: NSS 30 IV (12:58)
--- NOTE | 2023-10-05 16:21 | CM ---
Reviewed the chart notes and spoke with the patient's son via telephone. PT recommending SNF. Patient's son wants to bring patient home with VN/PT/OT. Discussed her mobility needs are an assist of 2 people. He feels they can accommodate that.
CM continues to be available to patient/family and is monitoring medical plan for needs at discharge.
Plan: Discharge to home with VN services.
--- NOTE | 2023-10-05 16:33 | W.PN.CARDCBS ---
Today's Communication / Plan
-
Continue IV diuretic. May be able to switch over to oral in the next 24 to 48 hours.
Monitor creatinine
Continue guideline directed medical therapy as tolerates.
Impression / Plan
-
.
PCP: Dr. Yordy Ibarra
Cardiology: None prior to admission
Impression:
COVID and aspiration PNA
Acute HFrEF
LLE cellulitis
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
Moderate to severe MR by echo 09/26/23
Severe TR by echo 09/26/23
Recent series of admissions for acute HF, generalized weakness and eventually diagnosed with ANCA vasculitis 10/17/22 until 12/01/22
h/o ANCA vasculitis
CKD 3
Dementia
Hypothyroidism
h/o GBS and dysautonomia symptoms that resolved with ANCA vasculitis treatment
h/o diastolic dysfunction
Short asymptomatic run of PAT
Echo 10/18/22:�EF 60-65%, mild to mod aortic regurgitation, mild TR
Echo 09/26/23: EF 20-25%, moderate to severe MR, severe TR, mild to moderate aortic insufficiency
Plan:
Communication barrier given language and dementia. Currently stable with decreased oxygen requirements. Did not tolerate room air. Back on 2 L of oxygen.
Volume status is difficult to assess. Perhaps in the next 24 to 48 hours depending on creatinine and clinical status may be able to switch to oral diuretic.
New cardiomyopathy, unknown etiology with a EF 20-25% by echocardiogram 09/26/2023 with moderate to severe mitral regurgitation and severe tricuspid regurgitation as well as mild to moderate aortic insufficiency.
-Cardiomyopathy, etiology unclear.
-There was concern raised about rare rituximab reaction however she has not had an infusion since November 2022 with normal ejection fraction in February 2023 per [facility] records
-Peak cardiac troponin 0.055, likely nonischemic troponin elevation. Continue to follow clinically.
-During this admission in discussions with family regarding evaluation of newly diagnosed cardiomyopathy including ischemic evaluation, family has been historically more conservative given her advanced cognitive impairment/dementia. Patient remains
a poor candidate for invasive procedures.
-Continue aspirin
-Continue Coreg. Titrate as able.
-Continue losartan 25 mg daily. Continue spironolactone 12.5 mg daily
-In discussion with case management, the patient does not have prescription coverage [pharmacy told her that premiums were not paid] with cost of medication such as Jardiance, Farxiga and Entresto all over $600 each. Patient's family states that
they have independence personal choice and case management will look into cost again on Monday. Will continue to evaluate.
-Short asymptomatic run of PAT. Follow.
-Renal function with creatinine 1.3-1.4. Monitor creatinine. 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
Continue treatment of COVID per primary service
General information: Records received patient's portal from [place] from March 19, 2023 including an echocardiogram which noted LV systolic function to be normal estimated 65% with no regional wall motion abnormalities and grade 1 diastolic
dysfunction. She had elevated left atrial filling pressures. Right ventricle was mildly enlarged with mildly reduced RV systolic function. She had mild mitral and tricuspid regurgitation. Estimated right ventricular systolic pressures were
severely elevated at 60 mmHg assuming a right atrial pressure of 15 mmHg. patient portal discharge summary from her admission in [place] March 18 - April 08, 2023 for sepsis and acute respiratory failure requiring intubation.Patient presented
with shortness of breath requiring intubation with CT of the chest noting pneumonia and diffuse interstitial lung disease. She was previously known to have ANCA vasculitis diagnosed in September during a hospitalization in [place] on chronic
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 She was extubated March 22 and then needed to be reintubated March 26. She was eventually reextubated March 28 and required 2 L nasal cannula at time of discharge. She was also treated for heart
failure with preserved ejection fraction. She was discharged on 40 mg of Lasix every other day. She did have elevated troponins which they felt were the demand ischemia.
Progress Note - [employer]
Subjective
Date of Service: October 05, 2023
No obvious complaints. No chest pain.
Objective
Labs:
10/05/23 04:43
10/05/23 04:43
Labs
Hgb 12.7 g/dL (12.0-16.0) 10/05/23 04:43
Hct 40.7 % (37.0-47.0) 10/05/23 04:43
Plt Count 60 10^3/uL (130-400) L 10/05/23 04:43
PT 13.0 Sec (11.4-14.6) 10/01/23 14:43
INR 1.00 10/01/23 14:43
Sodium 144 mmol/L (135-145) 10/05/23 04:43
Potassium 3.3 mmol/L (3.5-5.1) L 10/05/23 04:43
BUN 54 mg/dl (7-17) H 10/05/23 04:43
Creatinine 1.4 mg/dL (0.6-1.0) H 10/05/23 04:43
Glucose 123 mg/dl (70-99) H 10/05/23 04:43
Troponins
10/04/23
04:58
Troponin I 0.052 H*
Vital Signs and I&O:
Vital Signs
Temp Pulse Resp BP Pulse Ox
97.9 F 75 18 131/77 93
10/05/23 15:22 10/05/23 15:22 10/05/23 15:22 10/05/23 15:22 10/05/23 15:22
Vital Signs
Temp Pulse Resp BP Pulse Ox
97.9 F 75 18 131/77 93
10/05/23 15:22 10/05/23 15:22 10/05/23 15:22 10/05/23 15:22 10/05/23 15:22
Intake & Output
10/03/23 10/04/23 10/05/23 10/06/23
06:59 06:59 06:59 06:59
Intake Total 790 / 790 710 / 710 120 / 120
Balance 790 / 790 710 / 710 120 / 120
Physical Exam
Physical Exam
Language barrier, dementia
Heart: Distant heart sounds
Lungs: Coarse crackly anterior breath sounds
Extremities: No clubbing, cyanosis or legs wrapped
[2023-10-05] MEDS: SEROQUEL 50 MG PO (21:15)
[2023-10-05] MEDS: MELATONIN 5 MG PO (21:15)
[2023-10-05] MEDS: ROBITUSSIN 200 MG PO (23:29)
[2023-10-06] VITALS (7 sets, daily range): BP systolic 117–141; BP diastolic 62–105; PULSE 69; O2SAT 100; BMI 29.6
[2023-10-06] MEDS: ROBITUSSIN 200 MG PO (05:27)
[2023-10-06] MEDS: ZOSYN 50 IV (05:27)
[2023-10-06] MEDS: SYNTHROID 100 MCG PO (06:12)
[2023-10-06 06:16] LABS: % Basophils 0.2 % (0-2); % Immature Granulocytes 1.2 % (0-0.5); % Lymphocytes 10.8 % (20.5-51.1); % Monocytes 5.3 % (1.7-9.3); % Neutrophils 82.5 % (42.2-75.2); Absolute Immature Granulocytes 0.1 10^3/uL (0-0.05); Absolute Lymphocytes 0.6 10^3/uL (1.2-3.4); Absolute Monocytes 0.3 10^3/uL (0.1-0.6); Absolute Neutrophils 4.7 10^3/uL (1.4-6.5); Hematocrit 41.7 % (37.0-47.0); Mean Corp Hgb Conc. 31.2 g/dL (33.0-37.0); Mean Corpuscular Hgb 31.4 pg (27.0-31.0); Mean Corpuscular Volume 100.7 fL (81.0-99.0); Mean Platelet Volume 12.2 fL (7.4-10.4); Nucleated Red Blood Cells % 0 %; Platelet Count 62 10^3/uL (130-400); Red Blood Cell Count 4.14 10^6/uL (4.20-5.40); Red Cell Dist. Width 14.7 % (11.5-14.5); White Blood Cell Count 5.7 10^3/uL (4.8-10.8)
[2023-10-06 06:45] LABS: Blood Urea Nitrogen 54 mg/dl (7-17); Calcium 8.6 mg/dl (8.4-10.2); Carbon Dioxide 39 mmol/L (22-30); Chloride 99 mmol/L (98-107); Estimated Creatinine Clearance 26 ml/min; Glucose 111 mg/dl (70-99); Potassium 3.9 mmol/L (3.5-5.1); Sodium 143 mmol/L (135-145); eGFR 35.67
[2023-10-06] MEDS: COZAAR 25 MG PO (07:57)
[2023-10-06] MEDS: ALDACTONE 12.5 MG PO (07:58)
[2023-10-06] MEDS: COREG 12.5 MG PO ×2 (07:58→21:38)
[2023-10-06] MEDS: DECADRON 6 MG IV (07:59)
--- NOTE | 2023-10-06 09:39 | W.PN.HOSP.TC ---
Addendum entered and electronically signed by Ralph Pulido MD 10/06/23 12:51:
updated son Flora Enriquez� over the phone in details ON 10/06/23 answered all question to his satisfaction.
Original Note:
Today's Communication/Plan
-
Trend CBC
Wean oxygen
Heme input
Cardiology recs
Assessment / Plan
Assessment / Plan
Physical exam:
General: Acutely ill
HEENT: Normocephalic, Atraumatic and Moist Mucous Membranes
Respiratory: Bilateral coarse crackles; Negative Wheezes or Rhonchi, on oxygen 2L NC
Cardiac: Regular Rhythm and S1/S2, systolic murmur
GI: Soft, Nontender and Nondistended. She has some bruises from heparin shots.
Musculoskeletal: Bilateral edema, erythema and tenderness at left foot dorsal aspect.
Neuro: Awake, and Disoriented, remains confused. Moves spontaneously all 4 extremities.
Psych: Calm, in mitts
A/P:
Acute systolic congestive heart Failure:
Suspicion for etiology of heart failure related to use of Rituxan (not very common but case reports reviewed related to cardiotoxicity).
Consider switching to p.o. diuretics
Monitor strict I/O
Monitor daily weight-losing weight
Monitor renal function and electrolytes. BUN slowly uptrending. Monitor for contraction alkalosis.
Reviewed latest echocardiogram on our system and shows EF 20 to 25% which is new from prior echocardiogram and moderate to severe MR.
Continue guideline-directed medical therapy for heart failure (GDMT)--> on Coreg 6.25 mg twice a day, Cozaar 25 mg daily, checking cost of Jardiance and Entresto per cardiology.
Follow up clinical response
Ischemic w/u on hold until clinical status improves-will defer to cardiology.
Acute hypoxic respiratory failure:
-Multifactorial, heart failure related, COVID-19 (newly diagnosed), and aspiration pneumonia.
-Started remdesivir
-Start IV dexamethasone- 10d course
-Supplemental oxygen-on 2L-Wean as tolerated
-Continue IV Zosyn-plan for 5d course
-Speech therapy swallowing eval
COVID-19:
-Respiratory isolation
-Remdesivir for 5 days
-Monitor renal function and LFTs (LFTs and renal function elevated but not prohibitive and they have remained relatively stable)
-Dexamethasone for 10 days
-CRP trending down from 36 to 26
-Follow-up inflammatory markers
Aspiration pneumonia:
-continue antibiotics
Dysphagia:
-Speech eval--> advanced to IDDS-4 with aspiration precautions.
Toxic metabolic encephalopathy:
-Related to infection most likely with worsening of underlying dementia
-CT of the head no acute intracranial abnormalities
-Continue to monitor mental status. Continue to require restraints.
Left Foot Cellulitis
-Hold oral antibiotic since giving IV as above
-Consulted Wound Care--> appreciated input and continue local care
Thrombocytopenia likely secondary to COVID versus infection
-Monitor daily
-on aspirin.
-Platelets continue to drop. No active signs of bleeding.
-Will ask hematology for input
Hyponatremia
-resolved.
-Continue to monitor
CKD Stage III
-Monitor creatinine closely while on diuretics. Creatinine 1.5. Consider switching to p.o. diuretics.
ANCA Positive Vasculitis
-Hold prednisone while on IV dexa
-Repeated ESR, CRP C3 and C4--> no evidence of flare of vasculitis at the moment given ESR normal, CRP only minimally elevated and less than previously upon admission, and C3-C4 normal.
Dementia, probably Alzheimer's
Insomnia
-Continue melatonin and Seroquel
Hypothyroidism
-Continue levothyroxine
DVT proph: SCDs in the setting of thrombocytopenia
PT/OT SNF. Family wants to take patient home with VN.
Updated son over the phone in detail on 10/04.
Code Status: DO NOT INTUBATE but yes to resuscitation including chest compressions or shock.
Anticipated Discharge: > 48 hours
Subjective/Interval History
-
Date of Service: October 06, 2023
Patient mentation significantly improved in the presence of family
Remains on intermittent oxygenation
Objective Data
-
Labs:
Laboratory Results
10/06/23
05:21
WBC 5.7
Hgb 13.0
Hct 41.7
Plt Count 62 L
Sodium 143
Potassium 3.9
Chloride 99
Carbon Dioxide 39 H
BUN 54 H
Creatinine 1.5 H
Glucose 111 H
Calcium 8.6
Vital Signs:
Vital Signs
Temp Pulse Resp BP Pulse Ox
98.4 F 90 20 140/105 90
10/06/23 07:50 10/06/23 07:58 10/06/23 07:50 10/06/23 07:58 10/06/23 07:50
I&O
10/05/23 10/06/23 10/07/23
06:59 06:59 06:59
Intake Total 710 / 710 1220 / 1220
Balance 710 / 710 1220 / 1220
Data Reviewed
-
Total Time Spent with Patient (in minutes): 55
--- NOTE | 2023-10-06 11:44 | CON.ONC ---
Impression
Impression
COVID and aspiration PNA
Acute HFrEF
Mild thrombocytopenia acquired during acute illness
LLE cellulitis
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
Moderate to severe MR by echo 09/26/23
Severe TR by echo 09/26/23
Recent series of admissions for acute HF, generalized weakness and eventually diagnosed with ANCA vasculitis 10/17/22 until 12/01/22
h/o ANCA vasculitis
CKD 3
Dementia
Hypothyroidism
h/o GBS and dysautonomia symptoms that resolved with ANCA vasculitis treatment
h/o diastolic dysfunction
Short asymptomatic run of PAT
Plan
Plan
Patient has a history of a low titer of anticardiolipin antibody IgM
Consider alternate to Zosyn initiated 10/01 appears to correlate with progression of thrombocytopenia
Evaluate for ITP
Suspect acute illness contribution
Steroids have been on hold
Previous treatment for ANCA positive vasculitis
Patient History
History of Present Illness
History of Present Illness:
Has been hospitalized since 09/26 and has developed mild thrombocytopenia in the face of acute illness with coronavirus aspiration pneumonia and a history of ANCA positive vasculitis. Patient has had previous Rituxan which significantly increase her
risk for severe illness. She is receiving antiviral therapy. She is confused and restrained unable to give additional history. On presentation she had LE edema and left foot pain and wound, cardiology has been consulted for acute HF. Patient
lives at home with her family and she was not taking Lasix according to her med rec.patient has had a slow decline in platelet count since hospitalization most recently in the range of 60,000 without bleeding.
Past-Medical/Surgical History
Past Medical History
Recent series of admissions for acute HF, generalized weakness and eventually diagnosed with ANCA vasculitis 10/17/22 until 12/01/22
h/o ANCA vasculitis
CKD 3
Dementia
Hypothyroidism
h/o GBS and dysautonomia symptoms that resolved with ANCA vasculitis treatment
h/o diastolic dysfunction
Social History
Tobacco: Non-Smoker
Alcohol: None
Drug: None
Personal:
Living: With Family
Family History
Family History: Reviewed & Not Pertinent (No FH of CAD)
Patient Medication
Medication Instructions Recorded Confirmed Last Taken Type
acetaminophen 650 mg 1,300 mg PO [id number] PRN mild pain 09/25/23 09/25/23 09/25/23 History
tablet,extended release
levothyroxine 100 mcg tablet 100 mcg PO DAILY AT 0700 Thyroid 09/25/23 09/25/23 09/25/23 History
melatonin 5 mg tablet 5 mg PO HS Sleep 09/25/23 09/25/23 09/24/23 History
prednisone 5 mg tablet 7.5 mg PO DAILY vasculitis 09/25/23 09/25/23 09/25/23 History
quetiapine 50 mg tablet (Seroquel) 50 mg PO HS mental health 09/25/23 09/25/23 09/24/23 History
Active Medications
Generic Name Dose Route Start Last Admin
Trade Name Freq PRN Reason Stop Dose Admin
Acetaminophen 650 mg 09/25/23 20:46 10/01/23 14:13
Acetaminophen 325 Mg Tablet PO 10/23/23 20:45 650 mg
Q4HPRN PRN Administration
mild pain/ fever>100.5F
Albuterol 2 puff 10/02/23 11:40
Albuterol Hfa [90 Mcg/Dose] Inhaler INH 10/30/23 11:39
R Q4HPRN PRN
SOB/WHEEZE
Aspirin 81 mg 10/01/23 16:00 10/01/23 16:12
Aspirin 81 Mg Chewable Tablet PO 10/29/23 15:59 81 mg
DAILY SVEN Administration
Carvedilol 12.5 mg 09/30/23 21:30 10/06/23 07:58
Carvedilol 12.5 Mg Tablet PO 10/25/23 21:29 12.5 mg
BID SVEN Administration
Dexamethasone Sodium Phosphate 6 mg 10/02/23 08:00 10/06/23 07:59
Dexamethasone 4 Mg/Ml 1 Ml Vial IV 10/30/23 07:59 6 mg
DAILY SVEN Administration
Guaifenesin 200 mg 10/05/23 22:25 10/06/23 05:27
Guaifenesin Oral Solution (200 Mg/10 Ml) Cup PO 11/02/23 22:24 200 mg
Q4HPRN PRN Administration
cough
Piperacillin Sod/Tazobactam Sod 3.375 gram in 50 mls @ 100 mls/hr 10/02/23 00:00 10/06/23 05:27
Zosyn IV 50 mls
Q6 SVEN Administration
Remdesivir 100 mg/ Sodium 250 mls @ 250 mls/hr 10/03/23 12:00 10/05/23 12:57
Chloride IV 10/06/23 12:59 250 mls
DAILY@1200 SVEN Administration
Sodium Chloride 30 mls @ 120 mls/hr 10/03/23 13:00 10/05/23 12:58
Nss IV 10/06/23 13:14 30 mls
DAILY@1300 SVEN Administration
Ipratropium [place] 2 puff 10/02/23 11:41
Ipratropium Inhaler INH 10/30/23 11:40
R Q4HPRN PRN
SOB/WHEEZE
Levothyroxine Sodium 100 mcg 09/26/23 07:00 10/06/23 06:12
Levothyroxine 100 Mcg Tablet PO 10/24/23 06:59 100 mcg
DAILY AT 0700 SVEN Administration
Losartan Potassium 25 mg 09/26/23 16:00 10/06/23 07:57
Losartan 25 Mg Tablet PO 10/24/23 15:59 25 mg
DAILY SVEN Administration
Melatonin 5 mg 09/25/23 22:00 10/05/23 21:15
Melatonin 5 Mg Tablet PO 10/23/23 21:59 5 mg
HS SVEN Administration
Prednisone 7.5 mg 09/26/23 08:00 10/01/23 10:01
Prednisone 5 Mg Tablet PO 10/24/23 07:59 7.5 mg
DAILY SVEN Administration
Quetiapine Fumarate 50 mg 09/25/23 22:00 10/05/23 21:15
Quetiapine 25 Mg Tablet PO 10/23/23 21:59 50 mg
HS SVEN Administration
Sodium Chloride 0 flush 09/25/23 21:00 09/29/23 09:23
Sodium Chloride 0.9% (Flush) Syringe IV 10/23/23 20:59 1 flush
PER PROTOCOL SVEN Administration
Spironolactone 12.5 mg 10/01/23 08:00 10/06/23 07:58
Spironolactone 12.5 Mg Dose (1/2 Of 25 Mg Tablet) PO 10/29/23 07:59 12.5 mg
DAILY SVEN Administration
Review of Systems
-
Unobtainable
Physical Exam
-
GEN: NAD. Awake somewhat confused
HEENT: EOMI, MMM
LUNGS: Clear anterolaterally with poor inspiratory effort
CV: Reg, S1/S2, 2/6 syst LSB
ABD: soft, BS+, NT, ND
EXT: +1 B/L LE edema. LLE GAURANG wrap in place. No clubbing, cyanosis or lesions B/L
NEURO: Gross non-focal
SKIN: Warm, dry and pink. No rash
Labs
Lab Results
WBC 5.7 10^3/uL (4.8-10.8) 10/06/23 05:21
RBC 4.14 10^6/uL (4.20-5.40) L 10/06/23 05:21
Hgb 13.0 g/dL (12.0-16.0) 10/06/23 05:21
Hct 41.7 % (37.0-47.0) 10/06/23 05:21
MCV 100.7 fL (81.0-99.0) H 10/06/23 05:21
MCH 31.4 pg (27.0-31.0) H 10/06/23 05:21
MCHC 31.2 g/dL (33.0-37.0) L 10/06/23 05:21
RDW 14.7 % (11.5-14.5) H 10/06/23 05:21
Plt Count 62 10^3/uL (130-400) L 10/06/23 05:21
MPV 12.2 fL (7.4-10.4) H 10/06/23 05:21
Abs Immat Gran (auto) 0.1 10^3/uL (0-0.05) H 10/06/23 05:21
Absolute Neuts (auto) 4.7 10^3/uL (1.4-6.5) 10/06/23 05:21
Absolute Lymphs (auto) 0.6 10^3/uL (1.2-3.4) L 10/06/23 05:21
Absolute Monos (auto) 0.3 10^3/uL (0.1-0.6) 10/06/23 05:21
Absolute Eos (auto) 0.0 10^3/uL (0-0.7) 10/06/23 05:21
Absolute Basos (auto) 0.0 10^3/uL (0-0.2) 10/06/23 05:21
Immature Gran % 1.2 % (0-0.5) H 10/06/23 05:21
Neutrophils % 82.5 % (42.2-75.2) H 10/06/23 05:21
Lymphocytes % 10.8 % (20.5-51.1) L 10/06/23 05:21
Monocytes % 5.3 % (1.7-9.3) 10/06/23 05:21
Eosinophils % 0.0 % (0-6) 10/06/23 05:21
Basophils % 0.2 % (0-2) 10/06/23 05:21
Creatinine 1.5 mg/dL (0.6-1.0) H 10/06/23 05:21
Vital Signs
Vital Signs
Temp Pulse Resp BP Pulse Ox
98.2 F 69 16 133/62 96
10/06/23 11:22 10/06/23 11:22 10/06/23 11:22 10/06/23 11:22 10/06/23 11:22
[2023-10-06] MEDS: ZOSYN IV (12:09)
[2023-10-06] MEDS: VEKLURY 250 MG IV (12:11)
[2023-10-06] MEDS: NSS 30 IV (12:12)
--- NOTE | 2023-10-06 14:18 | CM ---
Reviewed the chart notes. Per RN, family now interested in short term rehab. Patient is Covid + which will limit facilities who will be willing to accept the patient. CM continues to be available to patient/family and is monitoring medical plan
for needs at discharge.
Plan: Discharge to SNF once bed found and precert obtained.
[2023-10-06] MEDS: UNASYN IV ×2 (15:15→21:38)
--- NOTE | 2023-10-06 16:10 | W.PN.CARDCBS ---
Today's Communication / Plan
-
Changed to Lasix 40 mg daily and sign off
Impression / Plan
-
.
PCP: Dr. Yordy Ibarra
Cardiology: None prior to admission
Impression:
COVID and aspiration PNA
Acute HFrEF
LLE cellulitis
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
Moderate to severe MR by echo 09/26/23
Severe TR by echo 09/26/23
Recent series of admissions for acute HF, generalized weakness and eventually diagnosed with ANCA vasculitis 10/17/22 until 12/01/22
h/o ANCA vasculitis
CKD 3
Dementia
Hypothyroidism
h/o GBS and dysautonomia symptoms that resolved with ANCA vasculitis treatment
h/o diastolic dysfunction
Short asymptomatic run of PAT
Echo 10/18/22:�EF 60-65%, mild to mod aortic regurgitation, mild TR
Echo 09/26/23: EF 20-25%, moderate to severe MR, severe TR, mild to moderate aortic insufficiency
Plan:
Volume status is difficult to ascertain but may be euvolemic and possibly little dry as creatinine worsened to 1.5
We will change Lasix to 40 mg daily
family has been historically more conservative given her advanced cognitive impairment/dementia. Patient remains a poor candidate for invasive procedures.
Will continue Coreg, losartan, Aldactone
In discussion with case management, the patient does not have prescription coverage [pharmacy told her that premiums were not paid] with cost of medication such as Jardiance, Farxiga and Entresto all over $600 each.
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
Continue treatment of COVID per primary service
Will sign off, call with questions
General information: Records received patient's portal from [place] from March 19, 2023 including an echocardiogram which noted LV systolic function to be normal estimated 65% with no regional wall motion abnormalities and grade 1 diastolic
dysfunction. She had elevated left atrial filling pressures. Right ventricle was mildly enlarged with mildly reduced RV systolic function. She had mild mitral and tricuspid regurgitation. Estimated right ventricular systolic pressures were
severely elevated at 60 mmHg assuming a right atrial pressure of 15 mmHg. patient portal discharge summary from her admission in [place] March 18 - April 08, 2023 for sepsis and acute respiratory failure requiring intubation.Patient presented
with shortness of breath requiring intubation with CT of the chest noting pneumonia and diffuse interstitial lung disease. She was previously known to have ANCA vasculitis diagnosed in September during a hospitalization in [place] on chronic
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 She was extubated March 22 and then needed to be reintubated March 26. She was eventually reextubated March 28 and required 2 L nasal cannula at time of discharge. She was also treated for heart
failure with preserved ejection fraction. She was discharged on 40 mg of Lasix every other day. She did have elevated troponins which they felt were the demand ischemia.
Progress Note - Fur Blower
Subjective
Date of Service: October 06, 2023
No complaints
Objective
Labs:
10/06/23 05:21
10/06/23 05:21
Labs
Hgb 13.0 g/dL (12.0-16.0) 10/06/23 05:21
Hct 41.7 % (37.0-47.0) 10/06/23 05:21
Plt Count 62 10^3/uL (130-400) L 10/06/23 05:21
PT 13.0 Sec (11.4-14.6) 10/01/23 14:43
INR 1.00 10/01/23 14:43
Sodium 143 mmol/L (135-145) 10/06/23 05:21
Potassium 3.9 mmol/L (3.5-5.1) 10/06/23 05:21
BUN 54 mg/dl (7-17) H 10/06/23 05:21
Creatinine 1.5 mg/dL (0.6-1.0) H 10/06/23 05:21
Glucose 111 mg/dl (70-99) H 10/06/23 05:21
Troponins
10/04/23
04:58
Troponin I 0.052 H*
Vital Signs and I&O:
Vital Signs
Temp Pulse Resp BP Pulse Ox
98.2 F 90 16 138/95 98
10/06/23 15:24 10/06/23 15:24 10/06/23 15:24 10/06/23 15:24 10/06/23 15:24
Vital Signs
Temp Pulse Resp BP Pulse Ox
98.2 F 90 16 138/95 98
10/06/23 15:24 10/06/23 15:24 10/06/23 15:24 10/06/23 15:24 10/06/23 15:24
Intake & Output
10/04/23 10/05/23 10/06/23 10/07/23
06:59 06:59 06:59 06:59
Intake Total 790 / 790 710 / 710 1220 / 1220 240 / 240
Balance 790 / 790 710 / 710 1220 / 1220 240 / 240
Physical Exam
Physical Exam
General: Appears chronically ill
Neck: Supple, no JVD, HJR, carotids +2 B/L, no bruits bilaterally.
Heart: Non displaced PMI, RRR, no murmurs, No S3, S4, no rubs.
Lungs: Scattered rhonchi
Extremities: No clubbing, cyanosis or edema bilaterally.
Neuro: Grossly nonfocal, awake, alert and oriented x3.
[2023-10-06] MEDS: MELATONIN 5 MG PO (21:38)
[2023-10-06] MEDS: SEROQUEL 50 MG PO (21:39)
[2023-10-06] MEDS: ProAIR HFA INHALER 2 PUFF INH (22:13)
[2023-10-07] MEDS: UNASYN IV ×2 (03:11→09:08)
[2023-10-07] MEDS: ROBITUSSIN 200 MG PO (03:27)
[2023-10-07 03:28] VITALS: BP 143/89
[2023-10-07] MEDS: SYNTHROID 100 MCG PO (06:08)
[2023-10-07 07:45] VITALS: BP 132/74
[2023-10-07] MEDS: COREG 12.5 MG PO ×2 (09:02→20:51)
[2023-10-07] MEDS: COZAAR 25 MG PO (09:03)
[2023-10-07] MEDS: DECADRON 6 MG IV (09:03)
[2023-10-07] MEDS: LASIX 40 MG PO (09:03)
[2023-10-07] MEDS: ALDACTONE 12.5 MG PO (09:03)
[2023-10-07 10:23] LABS: % Basophils 0.3 % (0-2); % Immature Granulocytes 0.8 % (0-0.5); % Monocytes 3.7 % (1.7-9.3); % Neutrophils 85.2 % (42.2-75.2); Absolute Immature Granulocytes 0.1 10^3/uL (0-0.05); Absolute Lymphocytes 0.7 10^3/uL (1.2-3.4); Absolute Monocytes 0.3 10^3/uL (0.1-0.6); Absolute Neutrophils 6.3 10^3/uL (1.4-6.5); Hematocrit 41.7 % (37.0-47.0); Hemoglobin 13.7 g/dL (12.0-16.0); Mean Corp Hgb Conc. 32.9 g/dL (33.0-37.0); Mean Corpuscular Hgb 31.7 pg (27.0-31.0); Mean Corpuscular Volume 96.5 fL (81.0-99.0); Mean Platelet Volume 11.2 fL (7.4-10.4); Nucleated Red Blood Cells % 0 %; Platelet Count 69 10^3/uL (130-400); Red Blood Cell Count 4.32 10^6/uL (4.20-5.40); White Blood Cell Count 7.4 10^3/uL (4.8-10.8)
[2023-10-07 10:54] LABS: Blood Urea Nitrogen 58 mg/dl (7-17); Calcium 9.1 mg/dl (8.4-10.2); Chloride 100 mmol/L (98-107); Estimated Creatinine Clearance 33 ml/min; Glucose 131 mg/dl (70-99); Potassium 3.9 mmol/L (3.5-5.1); Sodium 147 mmol/L (135-145); eGFR 46.62
[2023-10-07 11:04] LABS: Carbon Dioxide 39 mmol/L (22-30)
[2023-10-07 11:15] VITALS: BP 128/74
--- NOTE | 2023-10-07 11:32 | W.PN.HOSP.TC ---
Today's Communication/Plan
-
see A/P
Bold for today's update
Assessment / Plan
Assessment / Plan
Physical exam:
General: Acutely ill
HEENT: Normocephalic, Atraumatic and Moist Mucous Membranes
Respiratory: Bilateral coarse crackles; Negative Wheezes or Rhonchi, on oxygen 2L NC
Cardiac: Regular Rhythm and S1/S2, systolic murmur
GI: Soft, Nontender and Nondistended. She has some bruises from heparin shots.
Musculoskeletal: Bilateral edema, erythema and tenderness at left foot dorsal aspect.
Neuro: Awake, and Disoriented, remains confused. Moves spontaneously all 4 extremities.
Psych: Calm, in mitts
A/P:
Acute systolic congestive heart Failure:
Suspicion for etiology of heart failure related to use of Rituxan (not very common but case reports reviewed related to cardiotoxicity).
Switched to p.o. diuretics- on Lasix 40 mg daily
Monitor strict I/O , Monitor daily weight- losing weight
Monitor renal function and electrolytes/BUN. Monitor for contraction alkalosis.
Reviewed latest echocardiogram on our system, showed EF 20 to 25% which is new from prior echocardiogram and moderate to severe MR.
Continue guideline-directed medical therapy for heart failure (GDMT): on Coreg 12.5 mg twice a day, Cozaar 25 mg daily, added Aldactone 12.5 mg daily. Checking cost of Jardiance and Entresto per cardiology.
Follow up clinical response
Ischemic w/u on hold until clinical status improves- defer to cardiology.
Acute hypoxic respiratory failure:
-Multifactorial: heart failure related, COVID-19 (newly diagnosed), and aspiration pneumonia.
-Started remdesivir
-Start IV dexamethasone- 10d course
-Supplemental oxygen on 2L, wean as tolerated
-IV Zosyn was changed Unasyn, but since they are the same class of abx, may have similar S/E profile on the same patient.
Will change Abx to Ceftriaxone/Flagyl (different class of abx) to see if this would davy/improve current thrombocytopenia (see below)
-Speech therapy swallowing eval: recc to cont pureed with thin liquid
COVID-19:
-Respiratory isolation
-Remdesivir for 5 days
-Monitor renal function and LFTs (LFTs and renal function elevated but not prohibitive and they have remained relatively stable)
-Dexamethasone for 10 days
-CRP trending down from 36 to 26
-Follow-up inflammatory markers
Aspiration pneumonia:
-continue antibiotics
Dysphagia:
-Speech eval--> advanced to IDDS-4 with aspiration precautions.
Hypernatremia
Sodium level 147 today, suspect poor PO intake with free water loss from lasix
Start D5W at 100 cc/hr
Monitor volume status
Toxic metabolic encephalopathy:
-Related to infection most likely with worsening of underlying dementia
-CT of the head no acute intracranial abnormalities
-Continue to monitor mental status. Continue to require restraints.
Left Foot Cellulitis
-Hold oral antibiotic since giving IV as above
-Consulted Wound Care --> appreciated input and continue local care
Thrombocytopenia likely secondary to COVID versus infection
-Monitor daily
-on aspirin.
-Platelets continue to drop. No active signs of bleeding.
-Appreciate hematology input: Patient has a history of a low titer of anticardiolipin antibody IgM, consider alternate to Zosyn initiated 3/ appears to correlate with progression of thrombocytopenia, Evaluate for ITP,
Suspect acute illness contribution, Steroids have been on hold, Previous treatment for ANCA positive vasculitis
Hyponatremia
-resolved.
-Continue to monitor
CKD Stage III
-Monitor creatinine closely while on diuretics.
Creatinine 1.2 today from 1.5 previously.
ANCA Positive Vasculitis
-Hold prednisone while on IV dexa
-Repeated ESR, CRP C3 and C4--> no evidence of flare of vasculitis at the moment given ESR normal, CRP only minimally elevated and less than previously upon admission, and C3-C4 normal.
Dementia, probably Alzheimer's
Insomnia
-Continue melatonin and Seroquel
Hypothyroidism
-Continue levothyroxine
DVT proph: SCDs in the setting of thrombocytopenia
Code Status: DO NOT INTUBATE but yes to resuscitation including chest compressions or shock.
PT/OT SNF. Family wants to take patient home with VN.
called son twice, calls not answered
DW RN
total time spent 51 min
Anticipated Discharge: > 48 hours
Subjective/Interval History
-
Date of Service: October 07, 2023
Objective Data
-
Labs:
Laboratory Results
10/07/23 10/07/23
10:05 10:06
WBC 7.4
Hgb 13.7
Hct 41.7
Plt Count 69 L
Sodium 147 H
Potassium 3.9
Chloride 100
Carbon Dioxide 39 H
BUN 58 H
Creatinine 1.2 H
Glucose 131 H
Calcium 9.1
Vital Signs:
Vital Signs
Temp Pulse Resp BP Pulse Ox
36.3 C 78 18 143/89 100
10/07/23 03:28 10/07/23 09:03 10/07/23 07:45 10/07/23 09:03 10/07/23 07:45
I&O
10/06/23 10/07/23 10/08/23
06:59 06:59 07:59
Intake Total 1220 / 1220 480 / 480
Balance 1220 / 1220 480 / 480
Review of Systems
-
Unable to obtain full review of systems at this time due to: Dementia and Acuity (confusion)
Physical Exam
-
General: Well Developed, Well Nourished and Appears Chronically Ill
HEENT: Normocephalic, Atraumatic and Oxygen (2L NC)
Respiratory: Clear to Auscultation and Non Labored Respirations; Negative Accessory Resp Muscle Use
Cardiac: Regular Rhythm and S1/S2
Breast: Deferred by me
GI: Soft, Nontender and Nondistended
Rectal: Deferred by Provider
Genito-urinary: Deferred by me
Skin: Warm and Dry; Negative Rash
Neuro: Awake
Psych: Calm, Confused and Apparent Dementia; Negative Intact Judgement/Insight
Data Reviewed
-
Labs: Labs Reviewed by me
[2023-10-07] MEDS: STERILE WATER FOR INJECTION 10 ML IV (12:38)
[2023-10-07] MEDS: ROCEPHIN 1000 MG IV (12:38)
[2023-10-07] MEDS: FLAGYL 500 MG 100 IV ×2 (12:38→20:51)
[2023-10-07] MEDS: D5W 1000 IV (14:07)
[2023-10-07 15:40] VITALS: BP 125/74
[2023-10-07] MEDS: MELATONIN 5 MG PO (20:59)
[2023-10-07] MEDS: SEROQUEL 50 MG PO (20:59)
[2023-10-08 00:22] VITALS: BP 128/95
[2023-10-08 04:03] LABS: Hematocrit 37.5 % (37.0-47.0); Hemoglobin 12.7 g/dL (12.0-16.0); Mean Corp Hgb Conc. 33.9 g/dL (33.0-37.0); Mean Corpuscular Hgb 31.8 pg (27.0-31.0); Mean Corpuscular Volume 93.8 fL (81.0-99.0); Mean Platelet Volume 12.6 fL (7.4-10.4); Platelet Count 62 10^3/uL (130-400); Red Cell Dist. Width 15.1 % (11.5-14.5); White Blood Cell Count 5.3 10^3/uL (4.8-10.8)
[2023-10-08] MEDS: FLAGYL 500 MG 100 IV ×2 (04:43→12:34)
[2023-10-08] MEDS: D5W 1000 IV (04:44)
[2023-10-08] MEDS: SYNTHROID 100 MCG PO (06:27)
[2023-10-08 07:40] VITALS: BP 136/88
[2023-10-08 07:57] LABS: ALT (SGPT) 40 U/L (0-35); AST (SGOT) 33 U/L (14-36); Albumin 2.9 g/dl (3.5-5.0); Alkaline Phosphatase 102 U/L (38-126); Blood Urea Nitrogen 51 mg/dl (7-17); Calcium 8.5 mg/dl (8.4-10.2); Chloride 96 mmol/L (98-107); Estimated Creatinine Clearance 39 ml/min; Glucose 203 mg/dl (70-99); Potassium 3.8 mmol/L (3.5-5.1); Sodium 141 mmol/L (135-145); eGFR 58.02
[2023-10-08] MEDS: DECADRON 6 MG IV (08:01)
[2023-10-08] MEDS: COZAAR 25 MG PO (08:04)
[2023-10-08] MEDS: LASIX 40 MG PO (08:04)
[2023-10-08] MEDS: ALDACTONE 12.5 MG PO (08:04)
[2023-10-08 08:05] LABS: Carbon Dioxide 38 mmol/L (22-30)
[2023-10-08] MEDS: D5W IV (08:05)
[2023-10-08] MEDS: COREG 12.5 MG PO ×2 (08:05→20:40)
--- NOTE | 2023-10-08 10:41 | PTCARENOTE ---
Changed to med/surg level of care per telemetry protocol which was completed yesterday, 10/06.
[2023-10-08] MEDS: STERILE WATER FOR INJECTION 10 ML IV (12:34)
[2023-10-08] MEDS: ROCEPHIN 1000 MG IV (12:35)
--- NOTE | 2023-10-08 13:10 | W.PN.HOSP.TC ---
Today's Communication/Plan
-
see AP
Assessment / Plan
Assessment / Plan
Physical exam:
General: Acutely ill
HEENT: Normocephalic, Atraumatic and Moist Mucous Membranes
Respiratory: Bilateral coarse crackles; Negative Wheezes or Rhonchi, on oxygen 2L NC
Cardiac: Regular Rhythm and S1/S2, systolic murmur
GI: Soft, Nontender and Nondistended. She has some bruises from heparin shots.
Musculoskeletal: Bilateral edema, erythema and tenderness at left foot dorsal aspect.
Neuro: Awake, and Disoriented, remains confused. Moves spontaneously all 4 extremities.
Psych: Calm, in mitts
A/P:
Acute systolic congestive heart Failure:
Suspicion for etiology of heart failure related to use of Rituxan (not very common but case reports reviewed related to cardiotoxicity).
Switched to p.o. diuretics- on Lasix 40 mg daily
Monitor strict I/O , Monitor daily weight- losing weight
Monitor renal function and electrolytes/BUN. Monitor for contraction alkalosis.
Reviewed latest echocardiogram on our system, showed EF 20 to 25% which is new from prior echocardiogram and moderate to severe MR.
Continue guideline-directed medical therapy for heart failure (GDMT): on Coreg 12.5 mg twice a day, Cozaar 25 mg daily, added Aldactone 12.5 mg daily. Checking cost of Jardiance and Entresto per cardiology.
Follow up clinical response
Ischemic w/u on hold until clinical status improves- defer to cardiology.
Acute hypoxic respiratory failure-Multifactorial: heart failure related, COVID-19 (newly diagnosed), and aspiration pneumonia.
-Supplemental oxygen, now on 1L, wean as tolerated
-s/p remdesivir 5 days
-Cont IV dexamethasone total 10 days
-Cont isolation for COVID
-DC further Abx for aspiration (she has received 8 days during hospital stay)
-Speech therapy swallowing eval: recc to cont pureed with thin liquid. Son at bedside requesting formal VSE prior to discharge
-CRP trending down from 36 to 13
Dysphagia:
-Speech eval--> advanced to IDDS-4 with aspiration precautions.
Son at bedside requesting formal VSE prior to discharge
Hypernatremia, resolved
Sodium level 141 today, DC further D5W
Monitor volume status
Toxic metabolic encephalopathy:
-Related to infection most likely with worsening of underlying dementia
-CT of the head no acute intracranial abnormalities
-Continue to monitor mental status. Continue to require restraints.
Left Foot Wound
-Consulted Wound Care --> appreciated input and continue local care
Thrombocytopenia likely secondary to acute illness
Previously treatment for ANCA positive vasculitis
-Monitor daily
-on aspirin.
-Platelets continue to drop. No active signs of bleeding.
-Appreciate hematology input: Patient has a history of a low titer of anticardiolipin antibody IgM, recc alternate to Zosyn (Abx discontinued), Evaluate for ITP
Hyponatremia
-resolved.
-Continue to monitor
CKD Stage III
-Monitor creatinine closely while on diuretics.
Creatinine 1.0 today from 1.5 previously.
ANCA Positive Vasculitis
-Hold prednisone while on IV dexa
-Repeated ESR, CRP C3 and C4--> no evidence of flare of vasculitis at the moment given ESR normal, CRP only minimally elevated and less than previously upon admission, and C3-C4 normal.
Dementia, probably Alzheimer's
Insomnia
-Continue melatonin and Seroquel
Hypothyroidism
-Continue levothyroxine
DVT proph: SCDs in the setting of thrombocytopenia
Code Status: DO NOT INTUBATE but yes to resuscitation including chest compressions or shock.
PT/OT SNF. Family wants to take patient home with VN.
Dw son at bedside
total time spent 51 min
Anticipated Discharge: > 48 hours
Subjective/Interval History
-
Date of Service: October 08, 2023
Objective Data
-
Labs:
Laboratory Results
10/08/23 10/08/23
03:27 07:16
WBC 5.3
Hgb 12.7
Hct 37.5
Plt Count 62 L
Sodium Cancelled 141
Potassium Cancelled 3.8
Chloride Cancelled 96 L
Carbon Dioxide Cancelled 38 H
BUN Cancelled 51 H
Creatinine Cancelled 1.0
Glucose Cancelled 203 H
Calcium Cancelled 8.5
Total Bilirubin Cancelled 1.0
AST Cancelled 33
ALT Cancelled 40 H
Alkaline Phosphatase Cancelled 102
Vital Signs:
Vital Signs
Temp Pulse Resp BP Pulse Ox
36.7 C 75 20 136/88 96
10/08/23 08:06 10/08/23 07:40 10/08/23 07:40 10/08/23 07:40 10/08/23 07:40
I&O
10/07/23 10/08/23 10/09/23
05:59 06:59 06:59
Intake Total
Balance
Review of Systems
-
Unable to obtain full review of systems at this time due to: Dementia and Acuity
Physical Exam
-
General: Well Developed, Well Nourished and Appears Chronically Ill
HEENT: Normocephalic, Atraumatic and Oxygen (1L NC)
Respiratory: Clear to Auscultation and Non Labored Respirations; Negative Accessory Resp Muscle Use
Cardiac: Regular Rhythm and S1/S2
Breast: Deferred by me
GI: Soft, Nontender and Nondistended
Rectal: Deferred by Provider
Genito-urinary: Deferred by me
Skin: Warm and Dry; Negative Rash
Neuro: Awake
Psych: Calm, Confused and Apparent Dementia; Negative Intact Judgement/Insight
Data Reviewed
-
Labs: Labs Reviewed by me
[2023-10-08 15:45] VITALS: BP 135/85
[2023-10-08 18:36] LABS: Platelet Antibody, Direct IgG Negative (Negative); Platelet Antibody, Direct IgM Negative (Negative)
[2023-10-08] MEDS: MELATONIN 5 MG PO (20:40)
[2023-10-08] MEDS: SEROQUEL 50 MG PO (20:40)
[2023-10-08 23:17] VITALS: BP 130/79
[2023-10-09] MEDS: SYNTHROID 100 MCG PO (04:57)
[2023-10-09 05:08] VITALS: BMI 29.9
[2023-10-09 06:46] LABS: Hematocrit 40.5 % (37.0-47.0); Mean Corp Hgb Conc. 32.1 g/dL (33.0-37.0); Mean Corpuscular Hgb 31.6 pg (27.0-31.0); Mean Corpuscular Volume 98.3 fL (81.0-99.0); Mean Platelet Volume 12.4 fL (7.4-10.4); Platelet Count 70 10^3/uL (130-400); Red Blood Cell Count 4.12 10^6/uL (4.20-5.40); White Blood Cell Count 5.5 10^3/uL (4.8-10.8)
[2023-10-09 07:02] LABS: ALT (SGPT) 34 U/L (0-35); AST (SGOT) 26 U/L (14-36); Albumin 2.7 g/dl (3.5-5.0); Alkaline Phosphatase 95 U/L (38-126); Blood Urea Nitrogen 44 mg/dl (7-17); Calcium 8.6 mg/dl (8.4-10.2); Chloride 94 mmol/L (98-107); Estimated Creatinine Clearance 39 ml/min; Glucose 134 mg/dl (70-99); Potassium 3.7 mmol/L (3.5-5.1); Sodium 138 mmol/L (135-145); Total Bilirubin 0.8 mg/dl (0.2-1.3); Total Protein 4.8 g/dl (6.3-8.2); eGFR 58.02
--- NOTE | 2023-10-09 07:02 | PTCARENOTE ---
Patient had B/L mitt restraints to prevent pulling of tubes/ivs/etc. Patient improved in agitation, she did not attempt to take them off throughout the night. This RN took off mitts this morning around 0515. Patient has medsitter. Spoke with
medsitter to make aware of situation. Patient has been resting comfortably in bed with no attempts to pull anything. Notified oncoming nurse of removal.
[2023-10-09 07:10] LABS: Carbon Dioxide 38 mmol/L (22-30)
[2023-10-09 08:05] VITALS: BP 140/83
[2023-10-09] MEDS: COZAAR 25 MG PO (08:11)
[2023-10-09] MEDS: COREG 12.5 MG PO ×2 (08:11→22:41)
[2023-10-09] MEDS: DECADRON 6 MG IV (08:11)
[2023-10-09] MEDS: ALDACTONE 12.5 MG PO (08:11)
[2023-10-09] MEDS: LASIX 40 MG PO (08:11)
--- NOTE | 2023-10-09 08:26 | W.PN.HOSP.TC ---
Today's Communication/Plan
-
Continue IV steroids. Continue oral diuretics. Speech therapy reeval.
Assessment / Plan
Assessment / Plan
Physical exam:
General: Acutely ill
HEENT: Normocephalic, Atraumatic and Moist Mucous Membranes
Respiratory: Bilateral coarse crackles; Negative Wheezes or Rhonchi, on oxygen 2L NC
Cardiac: Regular Rhythm and S1/S2, systolic murmur
GI: Soft, Nontender and Nondistended. She has some bruises from heparin shots.
Musculoskeletal: Bilateral edema, erythema and tenderness at left foot dorsal aspect.
Neuro: Awake, and Disoriented, remains confused. Moves spontaneously all 4 extremities.
Psych: Calm, in mitts
A/P:
Acute systolic congestive heart Failure:
Suspicion for etiology of heart failure related to use of Rituxan (not very common but case reports reviewed related to cardiotoxicity).
Switched to p.o. diuretics- on Lasix 40 mg daily
Monitor strict I/O , Monitor daily weight- losing weight
Monitor renal function and electrolytes/BUN. Monitor for contraction alkalosis.
Reviewed latest echocardiogram on our system, showed EF 20 to 25% which is new from prior echocardiogram and moderate to severe MR.
Continue guideline-directed medical therapy for heart failure (GDMT): on Coreg 12.5 mg twice a day, Cozaar 25 mg daily, added Aldactone 12.5 mg daily. Checking cost of Jardiance and Entresto per cardiology.
Follow up clinical response
Ischemic w/u on hold until clinical status improves- defer to cardiology.
Acute hypoxic respiratory failure-Multifactorial: heart failure related, COVID-19 (newly diagnosed), and aspiration pneumonia.
-Supplemental oxygen, now on 1L, wean as tolerated
-s/p remdesivir 5 days
-Cont IV dexamethasone total 10 days and will switch back to her home doses of prednisone 7.5 mg p.o. daily
-Cont isolation for COVID
-DC further Abx for aspiration (she has received 8 days during hospital stay)
-Speech therapy swallowing eval: recc to cont pureed with thin liquid. Son at bedside requesting formal VSE prior to discharge or reevaluation by speech therapy. Speech therapy will reevaluate tomorrow.
-CRP trending down from 36 to 8.6
Dysphagia:
-Speech eval--> advanced to IDDS-4 with aspiration precautions.
Son at bedside requesting formal VSE or speech therapy reeval prior to discharge
Hypernatremia, resolved
Sodium level 138 today, Off D5W
Monitor volume status
Toxic metabolic encephalopathy:
-Related to infection most likely with worsening of underlying dementia
-CT of the head no acute intracranial abnormalities
-Continue to monitor mental status. Continue to require restraints.
Left Foot Wound
-Consulted Wound Care --> appreciated input and continue local care
Thrombocytopenia likely secondary to acute illness
Previously treatment for ANCA positive vasculitis
-Monitor daily
-on aspirin.
-Platelets continue to drop. No active signs of bleeding.
-Appreciate hematology input: Patient has a history of a low titer of anticardiolipin antibody IgM, recc alternate to Zosyn (Abx discontinued), Evaluate for ITP
Hyponatremia
-resolved.
-Continue to monitor
CKD Stage III
-Monitor creatinine closely while on diuretics.
Creatinine 1.0 today from 1.5 previously.
ANCA Positive Vasculitis
-Hold prednisone while on IV dexa
-Repeated ESR, CRP C3 and C4--> no evidence of flare of vasculitis at the moment given ESR normal, CRP only minimally elevated and less than previously upon admission, and C3-C4 normal.
Dementia, probably Alzheimer's
Insomnia
-Continue melatonin and Seroquel
Hypothyroidism
-Continue levothyroxine
DVT proph: SCDs in the setting of thrombocytopenia
Code Status: DO NOT INTUBATE but yes to resuscitation including chest compressions or shock.
PT/OT SNF. Family wants to take patient home with VN.
Anticipated Discharge: 24 - 48 hours
Subjective/Interval History
-
Date of Service: October 09, 2023
Patient remains on supplemental oxygen. Afebrile.
Objective Data
-
Labs:
Laboratory Results
10/09/23
06:05
WBC 5.5
Hgb 13.0
Hct 40.5
Plt Count 70 L
Sodium 138
Potassium 3.7
Chloride 94 L
Carbon Dioxide 38 H
BUN 44 H
Creatinine 1.0
Glucose 134 H
Calcium 8.6
Total Bilirubin 0.8
AST 26
ALT 34
Alkaline Phosphatase 95
Vital Signs:
Vital Signs
Temp Pulse Resp BP Pulse Ox
97.5 F 75 20 130/79 99
10/08/23 23:17 10/08/23 23:17 10/08/23 23:17 10/08/23 23:17 10/08/23 23:51
I&O
10/08/23 10/09/23 10/10/23
06:59 06:59 06:59
Intake Total 700 / 700
Balance 700 / 700
Review of Systems
-
Unable to obtain full review of systems at this time due to: Dementia
[2023-10-09 08:45] LABS: Cardiolipin IgA Antibody <10 APL (<=11); Cardiolipin IgM Antibody <10 MPL (<=12); Cardiolipin Igg Antibody <10 GPL (<=14)
--- NOTE | 2023-10-09 08:51 | PTCARENOTE ---
Assumed care at 0700. Oriented to self and place. Disoriented to time. Cooperative, following commands. Unable to wean off 1L NC. SaO2 drops to 88% at rest. SaO2 >/=94% on 1L. Additionally, patient becomes dyspneic w/ little activity, for example,
eating and drinking. Mitts remain off. Medsitter in place and monitoring.
[2023-10-09] MEDS: STERILE WATER FOR INJECTION IV (10:49)
[2023-10-09 15:20] VITALS: BP 135/85
--- NOTE | 2023-10-09 17:25 | W.PN.UPDATE ---
Update Note
Progress Note Update
Platelets stable at about 70.
Abd U/S ordered to eval for splenomegaly causing splenic sequestration.
[2023-10-09] MEDS: MELATONIN 5 MG PO (22:40)
[2023-10-09] MEDS: SEROQUEL 50 MG PO (22:40)
[2023-10-10 00:01] VITALS: BP 166/88
[2023-10-10 06:00] VITALS: BMI 29.9
[2023-10-10] MEDS: SYNTHROID PO (06:01)
[2023-10-10 06:08] LABS: % Basophils 0.2 % (0-2); % Immature Granulocytes 2.4 % (0-0.5); % Lymphocytes 9.1 % (20.5-51.1); % Monocytes 3.7 % (1.7-9.3); % Neutrophils 84.6 % (42.2-75.2); Absolute Immature Granulocytes 0.1 10^3/uL (0-0.05); Absolute Lymphocytes 0.5 10^3/uL (1.2-3.4); Absolute Monocytes 0.2 10^3/uL (0.1-0.6); Absolute Neutrophils 4.9 10^3/uL (1.4-6.5); Hematocrit 40.2 % (37.0-47.0); Hemoglobin 13.3 g/dL (12.0-16.0); Mean Corp Hgb Conc. 33.1 g/dL (33.0-37.0); Mean Corpuscular Volume 96.6 fL (81.0-99.0); Mean Platelet Volume 11.7 fL (7.4-10.4); Nucleated Red Blood Cells % 0 %; Platelet Count 73 10^3/uL (130-400); Red Blood Cell Count 4.16 10^6/uL (4.20-5.40); Red Cell Dist. Width 14.9 % (11.5-14.5); White Blood Cell Count 5.7 10^3/uL (4.8-10.8)
[2023-10-10 06:32] LABS: Blood Urea Nitrogen 51 mg/dl (7-17); Calcium 8.6 mg/dl (8.4-10.2); Chloride 96 mmol/L (98-107); Estimated Creatinine Clearance 39 ml/min; Glucose 116 mg/dl (70-99); Potassium 4.2 mmol/L (3.5-5.1); Sodium 136 mmol/L (135-145); eGFR 58.02
[2023-10-10 06:41] LABS: Carbon Dioxide 34 mmol/L (22-30)
[2023-10-10 07:20] VITALS: BP 160/92
--- NOTE | 2023-10-10 07:38 | W.PN.HOSP.TC ---
Today's Communication/Plan
-
IV dexamethasone. Ultrasound of the abdomen. Start discharge planning.
Assessment / Plan
Assessment / Plan
Physical exam:
General: Acutely ill
HEENT: Normocephalic, Atraumatic and Moist Mucous Membranes
Respiratory: Bilateral coarse crackles; Negative Wheezes or Rhonchi, on oxygen 2L NC
Cardiac: Regular Rhythm and S1/S2, systolic murmur
GI: Soft, Nontender and Nondistended. She has some bruises from heparin shots.
Musculoskeletal: Bilateral edema, erythema and tenderness at left foot dorsal aspect.
Neuro: Awake, and Disoriented, remains confused. Moves spontaneously all 4 extremities.
Psych: Calm, in mitts
A/P:
Acute systolic congestive heart Failure:
Suspicion for etiology of heart failure related to use of Rituxan (not very common but case reports reviewed related to cardiotoxicity).
Switched to p.o. diuretics- on Lasix 40 mg daily
Monitor strict I/O , Monitor daily weight- losing weight
Monitor renal function and electrolytes/BUN. Monitor for contraction alkalosis.
Reviewed latest echocardiogram on our system, showed EF 20 to 25% which is new from prior echocardiogram and moderate to severe MR.
Continue guideline-directed medical therapy for heart failure (GDMT): on Coreg 12.5 mg twice a day, Cozaar 25 mg daily, added Aldactone 12.5 mg daily. Checking cost of Jardiance and Entresto per cardiology.
Follow up clinical response
Ischemic w/u on hold until clinical status improves- defer to cardiology.
Acute hypoxic respiratory failure-Multifactorial: heart failure related, COVID-19 (newly diagnosed), and aspiration pneumonia.
-Supplemental oxygen, now on 1L, wean as tolerated
-s/p remdesivir 5 days
-Cont IV dexamethasone total 10 days and will switch back to her home doses of prednisone 7.5 mg p.o. daily upon discharge
-Cont isolation for COVID
-DC further Abx for aspiration (she has received 8 days during hospital stay)
-Speech therapy swallowing eval: recc to cont pureed with thin liquid. Son at bedside requesting formal VSE prior to discharge or reevaluation by speech therapy. Speech therapy will reevaluate today. Updated son today on 10/09 and he wants SNF for
d/c dispo.
-CRP trending down from 36 to 8.6
Dysphagia:
-Speech eval--> advanced to IDDS-4 with aspiration precautions.
Son at bedside requested formal VSE or speech therapy reeval prior to discharge
Hypernatremia, resolved
Sodium level 136 today, Off D5W
Monitor volume status
Toxic metabolic encephalopathy:
-Related to infection most likely with worsening of underlying dementia
-CT of the head no acute intracranial abnormalities
-Continue to monitor mental status. Continue to require restraints.
Left Foot Wound
-Consulted Wound Care --> appreciated input and continue local care
Thrombocytopenia likely secondary to acute illness
Previously treatment for ANCA positive vasculitis
-Monitor daily
-on aspirin.
-Platelets low but stable. No active signs of bleeding.
-Appreciate hematology input: Patient has a history of a low titer of anticardiolipin antibody IgM, recc alternate to Zosyn (Abx discontinued), Evaluate for ITP. Plan for US spleen.
Hyponatremia
-resolved.
-Continue to monitor
CKD Stage III
-Monitor creatinine closely while on diuretics.
Creatinine 1.0 today from 1.5 previously.
ANCA Positive Vasculitis
-Hold prednisone while on IV dexa
-Repeated ESR, CRP C3 and C4--> no evidence of flare of vasculitis at the moment given ESR normal, CRP only minimally elevated and less than previously upon admission, and C3-C4 normal.
Dementia, probably Alzheimer's
Insomnia
-Continue melatonin and Seroquel
Hypothyroidism
-Continue levothyroxine
DVT proph: SCDs in the setting of thrombocytopenia
Code Status: DO NOT INTUBATE but yes to resuscitation including chest compressions or shock.
PT/OT SNF. Family wants to take patient home with VN.
Anticipated Discharge: 24 - 48 hours
Subjective/Interval History
-
Date of Service: October 10, 2023
No new complaints. Patient seen and examined.
Objective Data
-
Labs:
Laboratory Results
10/10/23
05:29
WBC 5.7
Hgb 13.3
Hct 40.2
Plt Count 73 L
Sodium 136
Potassium 4.2
Chloride 96 L
Carbon Dioxide 34 H
BUN 51 H
Creatinine 1.0
Glucose 116 H
Calcium 8.6
Vital Signs:
Vital Signs
Temp Pulse Resp BP Pulse Ox
97.4 F 98 20 166/88 95
10/10/23 00:01 10/10/23 00:01 10/10/23 00:01 10/10/23 00:01 10/10/23 04:49
I&O
10/09/23 10/10/23 10/11/23
06:59 06:59 06:59
Intake Total 700 / 700 480 / 480
Balance 700 / 700 480 / 480
Review of Systems
-
Unable to obtain full review of systems at this time due to: Dementia
--- NOTE | 2023-10-10 09:12 | CM ---
Addendum entered by Jessica Coe RN 10/10/23 16:35:
List of area [facility] provided to the patient's son for review for placement.
Addendum entered by Jessica Coe RN 10/10/23 16:01:
Patient's insurance is [employer] Mbr# [id number].
Pharmacy # [phone].
Addendum entered by Jessica Coe RN 10/10/23 10:01:
JANICE called pharmacy benefits with new insurance card information. JANICE spoke with Sanket in pharmacy services.
Farxiga 10mg daily - Prior auth required.
Jardiance 10 mg daily - Prior auth required.
Entresto 24/26mg BID - Prior auth required.
Sanket was unable to prior cost after prior authorization for any of the medications.
Original Note:
Reviewed the chart notes and called insurance company again at request of the son who insists that the patient has insurance. Per pharmacy, premium not paid - no coverage. Call placed to provider services. Insurance termed on 07/30/23 - not
insured. CM informed son of situation. He has a different policy that he has been paying. He will provide a copy of current card. CM continues to be available to patient/family and is monitoring medical plan for needs at discharge.
Plan: Discharge plans will depend on if the family has obtained insurance.
[2023-10-10] MEDS: ALDACTONE 12.5 MG PO (10:46)
[2023-10-10] MEDS: DECADRON 6 MG IV (10:46)
[2023-10-10] MEDS: COREG 12.5 MG PO ×2 (10:46→20:07)
[2023-10-10] MEDS: COZAAR 25 MG PO (10:46)
[2023-10-10] MEDS: LASIX 40 MG PO (10:46)
[2023-10-10] MEDS: SYNTHROID 100 MCG PO (10:47)
--- NOTE | 2023-10-10 10:52 | W.PN.ONC ---
Today's Communication / Plan
-
10/09 PLT 73, stable
Monitor CBC w/ diff daily
Transfuse to maintain Hgb >7, PLT >20 (or >50 w/ active bleeding)
Continue IV steroids per primary team
Zosyn discontinued
Initiated 10/01 which appears to correlate with progression of thrombocytopenia
Abdominal U/S ordered to eval for splenomegaly
We will follow. Await US.
Impression
Impression
COVID and aspiration PNA
Acute HFrEF
Mild thrombocytopenia acquired during acute illness
LLE cellulitis
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
Moderate to severe MR by echo 09/26/23
Severe TR by echo 09/26/23
Recent series of admissions for acute HF, generalized weakness and eventually diagnosed with ANCA vasculitis 10/17/22 until 12/01/22
h/o ANCA vasculitis
CKD 3
Dementia
Hypothyroidism
h/o GBS and dysautonomia symptoms that resolved with ANCA vasculitis treatment
h/o diastolic dysfunction
Short asymptomatic run of PAT
Subjective/Objective
Subjective/Objective
Vital Signs:
Vital Signs
Temp Pulse Resp BP Pulse Ox
98.9 F 102 16 160/92 96
10/10/23 07:20 10/10/23 07:20 10/10/23 07:20 10/10/23 07:20 10/10/23 07:20
physical exam unchanged.
Lab Results:
Laboratory Data
WBC 5.7 10^3/uL (4.8-10.8) 10/10/23 05:29
Hgb 13.3 g/dL (12.0-16.0) 10/10/23 05:29
Plt Count 73 10^3/uL (130-400) L 10/10/23 05:29
PT 13.0 Sec (11.4-14.6) 10/01/23 14:43
INR 1.00 10/01/23 14:43
eGFR 58.02 10/10/23 05:29
[2023-10-10 15:54] VITALS: BP 130/82
[2023-10-10] MEDS: STERILE WATER FOR INJECTION IV (16:22)
--- NOTE | 2023-10-10 16:37 | PTOTSP ---
Dysphagia Therapy
Patient is appropriate to advance to a regular, thin liquid diet at this time with swallowing precautions below. No significant signs of oral dysphagia observed. Patient denied sensation of pharyngeal stasis. She was able to maintain SpO2 98%
without increase in dyspnea with solid intake.
Recommend:
1. Regular, Thin Liquids
2. Medications as best tolerated
3. Strategies: small sips/bites, slow rate, breaks for breathing
4. Will follow up briefly at the acute care level as able/appropriate for education re: swallowing strategies, diet modification, and determine if further objective swallowing assessment is needed.
[2023-10-10] MEDS: SEROQUEL 50 MG PO (21:06)
[2023-10-10] MEDS: MELATONIN 5 MG PO (21:06)
[2023-10-10 23:11] VITALS: BP 134/75
[2023-10-11 05:07] LABS: % Basophils 0.2 % (0-2); % Eosinophils 1.1 % (0-6); % Lymphocytes 10.8 % (20.5-51.1); % Monocytes 5.6 % (1.7-9.3); % Neutrophils 80.3 % (42.2-75.2); Absolute Eosinophils 0.1 10^3/uL (0-0.7); Absolute Immature Granulocytes 0.1 10^3/uL (0-0.05); Absolute Lymphocytes 0.6 10^3/uL (1.2-3.4); Absolute Monocytes 0.3 10^3/uL (0.1-0.6); Absolute Neutrophils 4.3 10^3/uL (1.4-6.5); Hematocrit 39.6 % (37.0-47.0); Mean Corp Hgb Conc. 32.8 g/dL (33.0-37.0); Mean Corpuscular Hgb 31.7 pg (27.0-31.0); Mean Corpuscular Volume 96.6 fL (81.0-99.0); Mean Platelet Volume 12.1 fL (7.4-10.4); Nucleated Red Blood Cells % 0 %; Platelet Count 71 10^3/uL (130-400); Red Cell Dist. Width 15.1 % (11.5-14.5); White Blood Cell Count 5.4 10^3/uL (4.8-10.8)
[2023-10-11 05:38] LABS: Blood Urea Nitrogen 42 mg/dl (7-17); Calcium 8.3 mg/dl (8.4-10.2); Carbon Dioxide 34 mmol/L (22-30); Chloride 100 mmol/L (98-107); Estimated Creatinine Clearance 44 ml/min; Glucose 85 mg/dl (70-99); Potassium 4.3 mmol/L (3.5-5.1); Sodium 134 mmol/L (135-145); eGFR > 60.00
[2023-10-11 05:41] VITALS: BMI 29.4
[2023-10-11 07:50] VITALS: BP 133/94
--- NOTE | 2023-10-11 08:26 | W.PN.HOSP.TC ---
Today's Communication/Plan
-
Continue IV dexamethasone. Oral Lasix. Discharge planning in progress
Assessment / Plan
Assessment / Plan
Physical exam:
General: No acute distress
HEENT: Normocephalic, Atraumatic and Moist Mucous Membranes
Respiratory: No crackles; Negative Wheezes or Rhonchi, on oxygen 1L NC
Cardiac: Regular Rhythm and S1/S2, systolic murmur
GI: Soft, Nontender and Nondistended. She has some bruises from heparin shots.
Musculoskeletal: Mild edema and improved, improved erythema and tenderness at left foot dorsal aspect.
Neuro: Awake, and Disoriented, remains confused. Moves spontaneously all 4 extremities.
Psych: Calm
A/P:
Acute systolic congestive heart Failure:
Suspicion for etiology of heart failure related to use of Rituxan (not very common but case reports reviewed related to cardiotoxicity).
Switched to p.o. diuretics- on Lasix 40 mg daily
Monitor strict I/O , Monitor daily weight- losing weight
Monitor renal function and electrolytes/BUN. Monitor for contraction alkalosis.
Reviewed latest echocardiogram on our system, showed EF 20 to 25% which is new from prior echocardiogram and moderate to severe MR.
Continue guideline-directed medical therapy for heart failure (GDMT): on Coreg 12.5 mg twice a day, Cozaar 25 mg daily, added Aldactone 12.5 mg daily. Checking cost of Jardiance and Entresto per cardiology.
Follow up clinical response
Ischemic w/u on hold until clinical status improves- defer to cardiology.
Acute hypoxic respiratory failure-Multifactorial: heart failure related, COVID-19 (newly diagnosed), and aspiration pneumonia.
-Supplemental oxygen, now on 1Lt.
-s/p remdesivir 5 days
-Cont IV dexamethasone total 10 days and will switch back to her home doses of prednisone 7.5 mg p.o. daily upon discharge tomorrow
-Cont isolation for COVID until today to complete a 10 days course. We can DC isolation tomorrow on 10/11
-DC further Abx for aspiration (she has received 8 days during hospital stay)
-Speech therapy swallowing eval: recc to change back to regular diet since 10/09. Updated son today on 10/10. 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
-CRP trending down from 36 to 8.6
Dysphagia:
-Speech eval--> advanced to IDDS-4 with aspiration precautions.
Hypernatremia, resolved
Sodium improved
Monitor volume status
Toxic metabolic encephalopathy:
-Related to infection most likely with worsening of underlying dementia
-CT of the head no acute intracranial abnormalities
-Continue to monitor mental status. Continue to require restraints.
Left Foot Wound
-Consulted Wound Care --> appreciated input and continue local care
Thrombocytopenia likely secondary to acute illness
Previously treatment for ANCA positive vasculitis
-Monitor daily
-on aspirin.
-Platelets low but stable. No active signs of bleeding.
-Appreciate hematology input: Patient has a history of a low titer of anticardiolipin antibody IgM, recc alternate to Zosyn (Abx discontinued), Evaluate for ITP or drug induced. S/P US spleen.
Hyponatremia
-resolved.
-Continue to monitor
CKD Stage III
-Monitor creatinine closely while on diuretics.
Creatinine 1.0 today from 1.5 previously.
ANCA Positive Vasculitis
-Hold prednisone while on IV dexa
-Repeated ESR, CRP C3 and C4--> no evidence of flare of vasculitis at the moment given ESR normal, CRP only minimally elevated and less than previously upon admission, and C3-C4 normal.
Dementia, probably Alzheimer's
Insomnia
-Continue melatonin and Seroquel
Hypothyroidism
-Continue levothyroxine
DVT proph: SCDs in the setting of thrombocytopenia
Code Status: DO NOT INTUBATE but yes to resuscitation including chest compressions or shock.
PT/OT SNF. Family wants SNF now.
Anticipated Discharge: 24 - 48 hours
Subjective/Interval History
-
Date of Service: October 11, 2023
Patient denies any shortness of breath or chest pain. Afebrile
Objective Data
-
Labs:
Laboratory Results
10/11/23
04:28
WBC 5.4
Hgb 13.0
Hct 39.6
Plt Count 71 L
Sodium 134 L
Potassium 4.3
Chloride 100
Carbon Dioxide 34 H
BUN 42 H
Creatinine 0.9
Glucose 85
Calcium 8.3 L
Vital Signs:
Vital Signs
Temp Pulse Resp BP Pulse Ox
97.2 F 76 18 133/94 100
10/11/23 07:50 10/11/23 07:50 10/11/23 07:50 10/11/23 07:50 10/11/23 07:50
I&O
10/10/23 10/11/23 10/12/23
06:59 06:59 06:59
Intake Total 480 / 480 540 / 540
Balance 480 / 480 540 / 540
[2023-10-11] MEDS: LASIX 40 MG PO (09:24)
[2023-10-11] MEDS: COZAAR 25 MG PO (09:25)
[2023-10-11] MEDS: COREG 12.5 MG PO ×2 (09:25→22:10)
[2023-10-11] MEDS: DECADRON 6 MG IV (09:26)
[2023-10-11] MEDS: ALDACTONE 12.5 MG PO (09:26)
[2023-10-11] MEDS: STERILE WATER FOR INJECTION IV (11:46)
[2023-10-11 12:20] VITALS: BP 125/69; PULSE 73; O2SAT 97
[2023-10-11 12:29] VITALS: BP 125/69; PULSE 73; O2SAT 97
--- NOTE | 2023-10-11 14:44 | W.PN.ONC ---
Today's Communication / Plan
-
Thrombocytopenia is stable, may be drug related or auto immune. Monitor CBC. No further w/u currently indicated
Abd US reviewed, spleen appears normal, but a left renal lesion is seen which may be a complex cyst of neoplasm. Could consider (outpatient) MRI to evaluate further, though would only consider if performance status improves.
Will sign off. Please call with any hematology questions.
Impression
Impression
COVID and aspiration PNA
Acute HFrEF
Mild thrombocytopenia acquired during acute illness
LLE cellulitis
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
Moderate to severe MR by echo 09/26/23
Severe TR by echo 09/26/23
Recent series of admissions for acute HF, generalized weakness and eventually diagnosed with ANCA vasculitis 10/17/22 until 12/01/22
h/o ANCA vasculitis
CKD 3
Dementia
Hypothyroidism
h/o GBS and dysautonomia symptoms that resolved with ANCA vasculitis treatment
h/o diastolic dysfunction
Short asymptomatic run of PAT
left kidney mass, cyst veruss neoplasm
Plan
Plan
Thrombocytopenia is stable, may be drug related or auto immune. Monitor CBC. No further w/u currently indicated
Abd US reviewed, spleen appears normal, but a left renal lesion is seen which may be a complex cyst of neoplasm. Could consider (outpatient) MRI to evaluate further, though would only consider if performance status improves.
Will sign off. Please call with any hematology questions.
Subjective/Objective
Subjective/Objective
Patient eating, not communicative. No family in room.
Vital Signs:
Vital Signs
Temp Pulse Resp BP Pulse Ox
97.2 F 76 18 133/94 100
10/11/23 07:50 10/11/23 09:26 10/11/23 07:50 10/11/23 09:26 10/11/23 11:23
Lab Results:
Laboratory Data
WBC 5.4 10^3/uL (4.8-10.8) 10/11/23 04:28
Hgb 13.0 g/dL (12.0-16.0) 10/11/23 04:28
Plt Count 71 10^3/uL (130-400) L 10/11/23 04:28
PT 13.0 Sec (11.4-14.6) 10/01/23 14:43
INR 1.00 10/01/23 14:43
eGFR > 60.00 10/11/23 04:28
--- NOTE | 2023-10-11 15:18 | CM ---
Reviewed the chart notes and spoke with the patient's son via telephone. Additional NH names were provided and referrals sent. Precert will be required. Patient should be off isolation tomorrow. CM continues to be available to patient/family and
is monitoring medical plan for needs at discharge.
Plan: Discharge to SNF/rehab prior to transitioning home. Precer will be required.
[2023-10-11 15:50] VITALS: BP 128/74
[2023-10-11] MEDS: SEROQUEL 50 MG PO (22:10)
[2023-10-11] MEDS: MELATONIN 5 MG PO (22:10)
[2023-10-11 23:43] VITALS: BP 131/77
[2023-10-12] MEDS: SYNTHROID 100 MCG PO (05:47)
[2023-10-12 05:55] LABS: % Basophils 0.2 % (0-2); % Lymphocytes 10.4 % (20.5-51.1); % Monocytes 2.5 % (1.7-9.3); % Neutrophils 84.9 % (42.2-75.2); Absolute Immature Granulocytes 0.1 10^3/uL (0-0.05); Absolute Lymphocytes 0.5 10^3/uL (1.2-3.4); Absolute Monocytes 0.1 10^3/uL (0.1-0.6); Absolute Neutrophils 4.3 10^3/uL (1.4-6.5); Hematocrit 40.7 % (37.0-47.0); Hemoglobin 13.7 g/dL (12.0-16.0); Mean Corp Hgb Conc. 33.7 g/dL (33.0-37.0); Mean Corpuscular Hgb 31.8 pg (27.0-31.0); Mean Corpuscular Volume 94.4 fL (81.0-99.0); Mean Platelet Volume 10.1 fL (7.4-10.4); Nucleated Red Blood Cells % 0 %; Platelet Count 74 10^3/uL (130-400); Red Blood Cell Count 4.31 10^6/uL (4.20-5.40); White Blood Cell Count 5.1 10^3/uL (4.8-10.8)
[2023-10-12 06:00] VITALS: BMI 28.7
[2023-10-12 06:11] LABS: Blood Urea Nitrogen 38 mg/dl (7-17); Calcium 8.4 mg/dl (8.4-10.2); Carbon Dioxide 32 mmol/L (22-30); Chloride 101 mmol/L (98-107); Estimated Creatinine Clearance 49 ml/min; Glucose 119 mg/dl (70-99); Potassium 4.6 mmol/L (3.5-5.1); Sodium 133 mmol/L (135-145); eGFR > 60.00
[2023-10-12 07:58] VITALS: BP 161/105
--- NOTE | 2023-10-12 08:27 | W.PN.HOSP.TC ---
Today's Communication/Plan
-
Continue current management. Discharge planning in progress
Assessment / Plan
Assessment / Plan
Physical exam:
General: No acute distress
HEENT: Normocephalic, Atraumatic and Moist Mucous Membranes
Respiratory: No crackles; Negative Wheezes or Rhonchi
Cardiac: Regular Rhythm and S1/S2, systolic murmur
GI: Soft, Nontender and Nondistended. She has some bruises from heparin shots.
Musculoskeletal: Mild edema and improved, improved erythema and tenderness at left foot dorsal aspect.
Neuro: Awake, and Disoriented, remains confused. Moves spontaneously all 4 extremities.
Psych: Calm
A/P:
Acute systolic congestive heart Failure:
Suspicion for etiology of heart failure related to use of Rituxan (not very common but case reports reviewed related to cardiotoxicity).
Switched to p.o. diuretics- on Lasix 40 mg daily
Monitor strict I/O , Monitor daily weight- losing weight
Monitor renal function and electrolytes/BUN. Monitor for contraction alkalosis.
Reviewed latest echocardiogram on our system, showed EF 20 to 25% which is new from prior echocardiogram and moderate to severe MR.
Continue guideline-directed medical therapy for heart failure (GDMT): on Coreg 12.5 mg twice a day, Cozaar 25 mg daily, added Aldactone 12.5 mg daily. Checking cost of Jardiance and Entresto per cardiology.
Follow up clinical response
Ischemic w/u on hold until clinical status improves- defer to cardiology.
Acute hypoxic respiratory failure-Multifactorial: heart failure related, COVID-19 (newly diagnosed), and aspiration pneumonia.
-Now off oxygen.
-s/p remdesivir 5 days
-Completed 10 days course of dexamethasone. Will switch back to her home doses of prednisone 7.5 mg p.o. daily
-Cont isolation for COVID until today to complete a 10 days course. We can DC isolation tomorrow on 10/11
-DC further Abx for aspiration (she has received 8 days during hospital stay)
-Speech therapy swallowing eval: recc to change back to regular diet since 10/09. Updated son today on 10/10. 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
-CRP trending down from 36 to 8.6
Dysphagia:
-Speech eval--> advanced to IDDS-4 with aspiration precautions.
Hypernatremia, resolved
Sodium improved
Monitor volume status
Toxic metabolic encephalopathy:
-Related to infection most likely with worsening of underlying dementia
-CT of the head no acute intracranial abnormalities
-Continue to monitor mental status. Continue to require restraints.
Left Foot Wound
-Consulted Wound Care --> appreciated input and continue local care
Thrombocytopenia likely secondary to acute illness
Previously treatment for ANCA positive vasculitis
-Monitor daily
-on aspirin.
-Platelets low but stable. No active signs of bleeding.
-Appreciate hematology input: Patient has a history of a low titer of anticardiolipin antibody IgM, recc alternate to Zosyn (Abx discontinued), Evaluate for ITP or drug induced. S/P US spleen.
Hyponatremia
-resolved.
-Continue to monitor
CKD Stage III
-Monitor creatinine closely while on diuretics.
Creatinine 1.0 today from 1.5 previously.
ANCA Positive Vasculitis
-Hold prednisone while on IV dexa
-Repeated ESR, CRP C3 and C4--> no evidence of flare of vasculitis at the moment given ESR normal, CRP only minimally elevated and less than previously upon admission, and C3-C4 normal.
Dementia, probably Alzheimer's
Insomnia
-Continue melatonin and Seroquel
Hypothyroidism
-Continue levothyroxine
DVT proph: SCDs in the setting of thrombocytopenia
Code Status: DO NOT INTUBATE but yes to resuscitation including chest compressions or shock.
PT/OT SNF. Family wants SNF now.
Anticipated Discharge: Today
Subjective/Interval History
-
Date of Service: October 12, 2023
Patient doing well overall. Generalized weakness. Afebrile. Off oxygen today.
Objective Data
-
Labs:
Laboratory Results
10/12/23
05:35
WBC 5.1
Hgb 13.7
Hct 40.7
Plt Count 74 L
Sodium 133 L
Potassium 4.6
Chloride 101
Carbon Dioxide 32 H
BUN 38 H
Creatinine 0.8
Glucose 119 H
Calcium 8.4
Vital Signs:
Vital Signs
Temp Pulse Resp BP Pulse Ox
97.2 F 89 18 161/105 94
10/12/23 07:58 10/12/23 07:58 10/12/23 07:58 10/12/23 07:58 10/12/23 07:58
I&O
10/11/23 10/12/23 10/13/23
06:59 06:59 06:59
Intake Total 540 / 540 1260 / 1260
Balance 540 / 540 1260 / 1260
[2023-10-12] MEDS: ALDACTONE 12.5 MG PO (08:54)
[2023-10-12] MEDS: LASIX 40 MG PO (08:58)
[2023-10-12] MEDS: COZAAR 25 MG PO (08:58)
[2023-10-12] MEDS: COREG 12.5 MG PO ×2 (09:41→20:24)
[2023-10-12 11:28] VITALS: BP 127/73; PULSE 69; O2SAT 98
[2023-10-12] MEDS: STERILE WATER FOR INJECTION IV (12:13)
--- NOTE | 2023-10-12 14:51 | CM ---
Reviewed the chart notes and spoke with the patient's son at the bedside. Patient is now off isolation. Additional referral sent to [facility]. [facility] to accept. [facility] can accept. Diane Carter sent updtd
PT notes. [facility] for [facility]. CM continues to be available to patient/family and is monitoring medical plan for needs at discharge.
Plan: Discharge to SNF once bed found and precert obtained.
[2023-10-12 15:45] VITALS: BP 138/82
[2023-10-12] MEDS: SEROQUEL 50 MG PO (21:34)
[2023-10-12] MEDS: MELATONIN 5 MG PO (21:34)
[2023-10-12 23:21] VITALS: BP 106/61
[2023-10-13 05:06] VITALS: BMI 28.9
[2023-10-13] MEDS: SYNTHROID 100 MCG PO (06:04)
[2023-10-13 07:36] VITALS: BP 153/94
--- NOTE | 2023-10-13 07:53 | W.PN.HOSP.TC ---
Today's Communication/Plan
-
Continue current management. Discharge planning in progress.
Assessment / Plan
Assessment / Plan
Physical exam:
General: No acute distress
HEENT: Normocephalic, Atraumatic and Moist Mucous Membranes
Respiratory: No crackles; Negative Wheezes or Rhonchi
Cardiac: Regular Rhythm and S1/S2, systolic murmur
GI: Soft, Nontender and Nondistended. She has some bruises from heparin shots.
Musculoskeletal: Mild edema and improved, improved erythema and tenderness at left foot dorsal aspect.
Neuro: Awake, and Disoriented, remains confused. Moves spontaneously all 4 extremities.
Psych: Calm
A/P:
Acute systolic congestive heart Failure:
Suspicion for etiology of heart failure related to use of Rituxan (not very common but case reports reviewed related to cardiotoxicity).
Switched to p.o. diuretics- on Lasix 40 mg daily
Monitor strict I/O , Monitor daily weight- losing weight
Monitor renal function and electrolytes/BUN. Monitor for contraction alkalosis.
Reviewed latest echocardiogram on our system, showed EF 20 to 25% which is new from prior echocardiogram and moderate to severe MR.
Continue guideline-directed medical therapy for heart failure (GDMT): on Coreg 12.5 mg twice a day, Cozaar 25 mg daily, added Aldactone 12.5 mg daily. Checking cost of Jardiance and Entresto per cardiology.
Follow up clinical response
Ischemic w/u on hold until clinical status improves- defer to cardiology.
Acute hypoxic respiratory failure-Multifactorial: heart failure related, COVID-19 (newly diagnosed), and aspiration pneumonia.
-Now off oxygen.
-s/p remdesivir 5 days
-Completed 10 days course of dexamethasone. Will switch back to her home doses of prednisone 7.5 mg p.o. daily
-Cont isolation for COVID until today to complete a 10 days course. We can DC isolation tomorrow on 10/11
-DC further Abx for aspiration (she has received 8 days during hospital stay)
-Speech therapy swallowing eval: recc to change back to regular diet since 10/09. Updated son prior. 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
-CRP trending down from 36 to 8.6
Dysphagia:
-Speech eval--> advanced to IDDS-4 with aspiration precautions.
Hypernatremia, resolved
Sodium improved
Monitor volume status
Toxic metabolic encephalopathy:
-Related to infection most likely with worsening of underlying dementia
-CT of the head no acute intracranial abnormalities
-Continue to monitor mental status. Continue to require restraints.
Left Foot Wound
-Consulted Wound Care --> appreciated input and continue local care
Thrombocytopenia likely secondary to acute illness
Previously treatment for ANCA positive vasculitis
-Monitor daily
-on aspirin.
-Platelets low but stable. No active signs of bleeding.
-Appreciate hematology input: Patient has a history of a low titer of anticardiolipin antibody IgM, recc alternate to Zosyn (Abx discontinued), Evaluate for ITP or drug induced. S/P US spleen.
Hyponatremia
-resolved.
-Continue to monitor
CKD Stage III
-Monitor creatinine closely while on diuretics.
Creatinine 1.0 today from 1.5 previously.
ANCA Positive Vasculitis
-Hold prednisone while on IV dexa
-Repeated ESR, CRP C3 and C4--> no evidence of flare of vasculitis at the moment given ESR normal, CRP only minimally elevated and less than previously upon admission, and C3-C4 normal.
Dementia, probably Alzheimer's
Insomnia
-Continue melatonin and Seroquel
Hypothyroidism
-Continue levothyroxine
DVT proph: SCDs in the setting of thrombocytopenia
Code Status: DO NOT INTUBATE but yes to resuscitation including chest compressions or shock.
PT/OT SNF. Family wants SNF now.
Anticipated Discharge: Today
Subjective/Interval History
-
Date of Service: October 13, 2023
No new complaints. Off oxygen. Afebrile.
Objective Data
-
Vital Signs:
Vital Signs
Temp Pulse Resp BP Pulse Ox
97.0 F 89 18 153/94 93
10/13/23 07:36 10/13/23 07:36 10/13/23 07:36 10/13/23 07:36 10/13/23 07:36
I&O
10/12/23 10/13/23 10/14/23
06:59 06:59 06:59
Intake Total 1260 / 1260 1200 / 1200
Balance 1260 / 1260 1200 / 1200
[2023-10-13] MEDS: ALDACTONE 12.5 MG PO (09:03)
[2023-10-13] MEDS: COREG 12.5 MG PO ×2 (09:04→19:29)
[2023-10-13] MEDS: COZAAR 25 MG PO (09:04)
[2023-10-13] MEDS: LASIX 40 MG PO (09:06)
[2023-10-13] MEDS: DELTASONE 7.5 MG PO (09:06)
--- NOTE | 2023-10-13 09:57 | CM ---
Addendum entered by Owen Gabriel 10/13/23 15:51:
JANICE spoke to two pt's sons and they were notified that all new preferred SNFs have denied a referral.
Pt's son were notified that [facility] offered a bed at their dementia unit and not on skilled rehab unit and pt's son declined it.
Both pt's sons stated they are OK with pt going to [facility] in [facility].
JANICE spoke to [facility] title i director Antony and he confirmed that pt is accepted for admission and he is checking whether or not today and tomorrow.
[facility]
Accepting MD: Cristhian Sewell [id number]
JANICE initiated an auth for SNF level of care at [facility] with [employer] [facility], spoke to claim representative Samantha and based on clinical provided pt is approved for 5 initial days from today 10/13/23 till 10/17/23 with LCD and NRD 10/17/23, auth is:
[id number]. Ambulance auth with Acute care ambulance: [id number].
JANICE spoke to [facility] title i director and he confirmed that pt is accepted for admission to [facility] tomorrow with milk pickup driver time 5:00 p.m.
to arrange transportation BLS for tomorrow 10/14/23. [facility] completed and left with . Ambulance auth with [facility] ambulance: [id number].
[facility] nursing repprt: [phone]
Discharge instructions fax: [phone]
Both pt, her sons, RN, [facility] title i director are aware of the plan.
D/C plan:[facility] tomorrow 10/14/23 with milk pickup driver time 5:00 p.m.
Addendum entered by Owen Gabriel 10/13/23 13:13:
JANICE spoke to pt's son to inform him that all new requested SNFs have denied a referral.
Pt's son asked for some time to discuss with his brother. Pt's son is aware that only [facility] offered a bed.
Pt's son called me back after 1.5 hours and he is requested new SNFs: [facility], [facility], [facility].
A referral to above SNFs made. Awaiting for determination.
Pt's son stated if new SNF will deny a referral then he will give OK for pt to go to [facility].
An Auth from [employer] will require after an accepted SNF identified.
D/C plan: Preferred SNF.
Original Note:
CM following re: discharge planning.
Reviewed pt's chart, met with pt and spoke to pt's son to update on discharge plan progress. both pt and her son are aware that [facility] is the only SNF that offered a bed. Pt's son stated that yesterday he gave another choices of SNFs and
pt's son has been informed today that both [facility] SNF and [facility] have no beds available. CM TTed [facility] admissions department and awaiting for the confirmation.
Pt's son requested today another following SNFs he preferred: [facility], [facility], [facility] and [facility]. A referral to requested new SNFs made. Awaiting for determination.
An Auth from [employer] will require after an accepted SNF identified.
D/C plan: preferred SNF.
CM will follow to assist pt with discharge to a preferred and accepted SNF.
[2023-10-13] MEDS: STERILE WATER FOR INJECTION IV (11:43)
[2023-10-13 12:18] VITALS: BP 104/65; PULSE 81; O2SAT 93
[2023-10-13 15:39] VITALS: BP 137/85
[2023-10-13] MEDS: SEROQUEL 50 MG PO (22:05)
[2023-10-13] MEDS: MELATONIN 5 MG PO (22:05)
[2023-10-13 23:34] VITALS: BP 106/58
[2023-10-14] MEDS: SYNTHROID 100 MCG PO (05:34)
[2023-10-14 05:35] VITALS: BMI 27.6
[2023-10-14 07:20] VITALS: BP 115/80
--- NOTE | 2023-10-14 08:38 | W.PN.HOSP.TC ---
Today's Communication/Plan
-
Continue current management. Discharge planning in progress
Assessment / Plan
Assessment / Plan
Physical exam:
General: No acute distress
HEENT: Normocephalic, Atraumatic and Moist Mucous Membranes
Respiratory: No crackles; Negative Wheezes or Rhonchi
Cardiac: Regular Rhythm and S1/S2, systolic murmur
GI: Soft, Nontender and Nondistended. She has some bruises from heparin shots.
Musculoskeletal: Mild edema and improved, improved erythema and tenderness at left foot dorsal aspect.
Neuro: Awake, and Disoriented, remains confused. Moves spontaneously all 4 extremities.
Psych: Calm
A/P:
Acute systolic congestive heart Failure:
Suspicion for etiology of heart failure related to use of Rituxan (not very common but case reports reviewed related to cardiotoxicity).
Switched to p.o. diuretics- on Lasix 40 mg daily
Monitor strict I/O , Monitor daily weight- losing weight
Monitor renal function and electrolytes/BUN. Monitor for contraction alkalosis.
Reviewed latest echocardiogram on our system, showed EF 20 to 25% which is new from prior echocardiogram and moderate to severe MR.
Continue guideline-directed medical therapy for heart failure (GDMT): on Coreg 12.5 mg twice a day, Cozaar 25 mg daily, added Aldactone 12.5 mg daily. Checking cost of Jardiance and Entresto per cardiology.
Follow up clinical response
Ischemic w/u on hold until clinical status improves- defer to cardiology.
Acute hypoxic respiratory failure-Multifactorial: heart failure related, COVID-19 (newly diagnosed), and aspiration pneumonia.
-Now off oxygen.
-s/p remdesivir 5 days
-Completed 10 days course of dexamethasone. Will switch back to her home doses of prednisone 7.5 mg p.o. daily
-Cont isolation for COVID until today to complete a 10 days course. We can DC isolation tomorrow on 10/11
-DC further Abx for aspiration (she has received 8 days during hospital stay)
-Speech therapy swallowing eval: recc to change back to regular diet since 10/09. Updated son prior. manager image chloé on SNF for discharge disposition.
-CRP trending down from 36 to 8.6
Dysphagia:
-Speech eval--> advanced to IDDS-4 with aspiration precautions.
Hypernatremia, resolved
Sodium improved
Monitor volume status
Toxic metabolic encephalopathy:
-Related to infection most likely with worsening of underlying dementia
-CT of the head no acute intracranial abnormalities
-Continue to monitor mental status. Continue to require restraints.
Left Foot Wound
-Consulted Wound Care --> appreciated input and continue local care
Thrombocytopenia likely secondary to acute illness
Previously treatment for ANCA positive vasculitis
-Monitor daily
-on aspirin.
-Platelets low but stable. No active signs of bleeding.
-Appreciate hematology input: Patient has a history of a low titer of anticardiolipin antibody IgM, recc alternate to Zosyn (Abx discontinued), Evaluate for ITP or drug induced. S/P US spleen.
Hyponatremia
-resolved.
-Continue to monitor
CKD Stage III
-Monitor creatinine closely while on diuretics.
Creatinine 1.0 today from 1.5 previously.
ANCA Positive Vasculitis
-Hold prednisone while on IV dexa
-Repeated ESR, CRP C3 and C4--> no evidence of flare of vasculitis at the moment given ESR normal, CRP only minimally elevated and less than previously upon admission, and C3-C4 normal.
Dementia, probably Alzheimer's
Insomnia
-Continue melatonin and Seroquel
Hypothyroidism
-Continue levothyroxine
DVT proph: SCDs in the setting of thrombocytopenia
Code Status: DO NOT INTUBATE but yes to resuscitation including chest compressions or shock.
PT/OT SNF. Family wants SNF now.
Anticipated Discharge: Today
Subjective/Interval History
-
Date of Service: October 14, 2023
Patient seen and examined. No new complaints
Objective Data
-
Vital Signs:
Vital Signs
Temp Pulse Resp BP Pulse Ox
97.8 F 88 22 106/58 94
10/13/23 23:34 10/13/23 23:34 10/13/23 23:34 10/13/23 23:34 10/13/23 23:45
I&O
10/13/23 10/14/23 10/15/23
06:59 06:59 06:59
Intake Total 1200 / 1200 480 / 480
Balance 1200 / 1200 480 / 480
[2023-10-14] MEDS: COZAAR 25 MG PO (08:58)
[2023-10-14] MEDS: LASIX 40 MG PO (08:59)
[2023-10-14] MEDS: ALDACTONE 12.5 MG PO (08:59)
[2023-10-14] MEDS: DELTASONE 7.5 MG PO (08:59)
[2023-10-14] MEDS: COREG 12.5 MG PO (08:59)
--- NOTE | 2023-10-14 10:57 | W.DCSUMMARY ---
Discharge Summary
Discharge Data
Date of Admission: 09/25/23
Date of Discharge: 10/14/23
-
Pending Results: No
Hospital Course
Patient 77 years old female who had multiple comorbidities including ANCA vasculitis, CKD, GBS, dementia, CHF, who presented to the hospital with shortness of breath and foot infection.
She was noted to be in heart failure. She had normal prior to presentation and an updated revealed severely reduced left ventricular systolic function with an ejection fraction of 20 to 25%. She was placed on aggressive IV diuresis and an
appropriate heart failure medication although limited by blood pressure and renal failure and multiple other complications. It has been felt that the etiology of her CHF could have been Rituxan induced but further ischemic workup will be pursued as
outpatient to rule out ischemic heart disease. Although overall she does remain a poor candidate for any invasive procedures so that we will be reevaluated as outpatient. She was able to tolerate oral Lasix, losartan, spironolactone, and Coreg.
Cost prohibitive for Jardiance, Farxiga, and Entresto. Patient was able to change to oral diuretics and adjustment of her cardiac medications as listed on her discharge medications list. She will need to follow-up with cardiology as outpatient.
She had some acute kidney injury but that subsequently improved. Her creatinine peaked at 1.5 at some point but upon discharge her latest creatinine is 1.0.
Course complicated with acute hypoxic respiratory failure due to COVID-19 and aspiration pneumonia superimposed on her CHF. She was treated with 5 days of remdesivir and 10 days of dexamethasone. She also was treated with IV Zosyn and later on was
switched to Unasyn due to thrombocytopenia and she completed course of antibiotics. She was able to come off oxygen and her inflammatory markers trending down appropriately.
She also was evaluated by hematology due to thrombocytopenia and workup during this hospital stay was not revealing but suspect in the probably medication induced. She also will need to follow-up with hematology as outpatient. Platelet count upon
discharge 74 and it has been stable for several days with no signs of bleeding.
She has been deemed candidate for long-term home for further rehabilitation. She is going to be discharged to SNF in relatively stable condition today.
Discharge duration: 42 minutes
Discharge Plan
-
Patient Disposition: Snf/SNF
Discharge Diagnosis/Procedures: Acute systolic congestive heart failure. Acute hypoxic respiratory failure. Coronavirus 19. Dysphagia. Toxic metabolic encephalopathy. Aspiration pneumonia. Thrombocytopenia. Chronic kidney disease stage III.
History of vasculitis. Alzheimer's dementia.
Diet: Low Cholesterol, 2 Gram Sodium and Restrict fluids to 48 oz
Activity: As tolerated
Blood Work: Please PCP to order CBC, BMP within 1 week
Specialty Instructions: Weigh Daily- Call MD for wt gain/loss 3 lbs overnight/5 lbs in 1 week
Activity Restrictions/Additional Instructions:
Wound Care Instructions
L dorsal foot, clean with soap and water, adaptic, abd pad and pilar change daily until drainage less then can do q other day.
Deny wrap knee high daily until edema resolved. Can remove at bedtime.
R 4th toe: clean with soap and water, dry dressing change q other day and prn soilage.
Leg elevation when sitting
Follow up at wound care center *if not healing, call for an appointment.
Instructions: *PCP/Other [facility] Heart Failure Instructions
Referrals:
Girma Fletcher DO [Family Provider] -
Prescriptions:
New
furosemide 40 mg Tablet
40 mg PO DAILY 30 Days Qty: 30 0RF
carvedilol 12.5 mg Tablet
12.5 mg PO BID 30 Days Qty: 60 0RF
spironolactone 25 mg Tablet
12.5 mg PO DAILY 30 Days Qty: 15 0RF
losartan 25 mg Tablet
25 mg PO DAILY 30 Days Qty: 30 0RF
aspirin [Children's Aspirin] 81 mg Tablet,Chewable
81 mg PO DAILY 30 Days Qty: 30 0RF
albuterol sulfate 90 mcg/actuation Hfa Aerosol Inhaler
2 puff inhalation R Q4HPRN PRN (Reason: SOB/WHEEZE) 14 Days Qty: 1 0RF
acetaminophen 650 mg tablet extended release
650 mg PO Q8H PRN (Reason: Pain) Qty: 14 0RF
Continued
levothyroxine 100 mcg tablet
100 mcg PO DAILY AT 0700
prednisone 5 mg Tablet
7.5 mg PO DAILY
quetiapine [Seroquel] 50 mg Tablet
50 mg PO HS
melatonin 5 mg Tablet
5 mg PO HS
Discontinued
acetaminophen [Tylenol Arthritis] 650 mg Tablet Extended Release
1,300 mg PO [id number] PRN (Reason: mild pain)
Discharge Orders:
Discharge Patient (As Directed); Ordered 10/14/23
Ordered By: Behzad Cruz
Discharge Date and Time
Discharge Date/Time: 10/14/23 16:54
--- NOTE | 2023-10-14 12:04 | CM ---
CM reviewed chart and plan for transfer. CM spoke with patient son who indicated that he was planning to come and assist patient with transfer. Patient son aware of time for transfer and confirmed that patient does not have [facility]. CM also spoke with
admissions from [facility] and provided patient son phone number to update about SS# and other questions. CM will continue to follow for discharge planning needs.
Plan;
[facility] to arrange [facility] for [facility]14[facility]23[facility] auth with Acute care ambulance: [id number].
[facility] nursing repprt: [phone]
Discharge instructions fax: [phone]
[2023-10-14] MEDS: STERILE WATER FOR INJECTION IV (12:49)
[2023-10-14 15:22] VITALS: BP 114/64
== END 2023-10-14 16:54 | DRG 291 ==
LOC: 2 NORTH 17:44
PROVIDERS: Emergency Medicine; Hospitalist; Internal Medicine; Internal Medicine Cardiovascular Disease; Nuclear Medicine Nuclear Cardiology; Nurse Practitioner Family; Nurse Practitioner Gerontology; Physician Assistant; Physician Assistant Medical; ADMITTING PHYSICIAN Hospitalist; EMERGENCY PHYSICIAN Emergency Medicine; FAMILY PHYSICIAN Family Medicine; OTHER PHYSICIAN Internal Medicine Cardiovascular Disease; OTHER PHYSICIAN Internal Medicine Hematology & Oncology
PROC: XW033E5 Introduction of Remdesivir Anti-infective into Peripheral Vein, Percutaneous Approach, New Technology Group 5 (ICD-10-PCS; 2023-10-02)
DX: I50.21 Acute systolic (congestive) heart failure (principal); G92.8 Other toxic encephalopathy; J96.01 Acute respiratory failure with hypoxia; U07.1 COVID-19; J69.0 Pneumonitis due to inhalation of food and vomit; F02.818 Dementia in other diseases classified elsewhere, unspecified severity, with other behavioral disturbance; L03.116 Cellulitis of left lower limb; I42.9 Cardiomyopathy, unspecified; N17.9 Acute kidney failure, unspecified; I47.19 Other supraventricular tachycardia; E87.0 Hyperosmolality and hypernatremia; E87.1 Hypo-osmolality and hyponatremia; R13.10 Dysphagia, unspecified; D69.59 Other secondary thrombocytopenia; T45.1X5A Adverse effect of antineoplastic and immunosuppressive drugs, initial encounter; N18.30 Chronic kidney disease, stage 3 unspecified; I77.82 Antineutrophilic cytoplasmic antibody [ANCA] vasculitis; G30.9 Alzheimer's disease, unspecified; E03.9 Hypothyroidism, unspecified; L97.529 Non-pressure chronic ulcer of other part of left foot with unspecified severity; G47.00 Insomnia, unspecified; I08.3 Combined rheumatic disorders of mitral, aortic and tricuspid valves; Z60.3 Acculturation difficulty; Z79.52 Long term (current) use of systemic steroids
CPT/HCPCS: 36600; 70450; 71045; 71046; 73630; 76700; 80048; 80053; 80061; 81003; 82140; 82805; 82962; 83605; 83735; 83880; 84145; 84439; 84443; 84484; 85025; 85027; 85610; 85652; 86023; 86140; 86147; 86160; 87040; 87070; 87811; 92526; 92610; 93005; 93306; 93971; 94640; 96374; 96375; 97110; 97116; 97162; 97167; 97530; 97535; 99285; J0248